=== PATIENT | female | born 1950 | race Caucasian/White ===

== ENCOUNTER 2017-04-27 18:26 | Inpatient (IN) | payer MEDICARE ==
[~2017-04-27] VITALS: Ht 157.5 cm; Wt 68.1 kg
[2017-04-28] VITALS: BP 119/57; PULSE 60; RESP 18; TEMP 97.3; O2SAT 95
--- NOTE | 2017-04-28 00:49 | HHI.HP ---
HPI Service [facility] Hospitalists Primary Care Physician Unknown Admission Diagnosis Diagnoses: Travel History International Travel<30 Days: No Contact w/Intl Traveler <30 Da: No Traveled to Known Affected Are: No History of Present Illness 67-year-old female transferred from [place] for biliary stent placement. The patient has a history of one month of epigastric pain with a recent onset of increased stool, tea-colored urine and jaundice. The patient's bilirubin doubled from 2.9 to 5.5 over 4 days. She endorses nausea but denies emesis. Denies fever/chills. Biliary stent placement was attempted yesterday by Dr. Weems, however he was unable to place the stent. The patient was transferred to [facility] for placement by interventional radiology. She reports that her abdominal pain is much improved since having the procedure today. She currently rates it as a 1.5/10. Review of Systems Denies fever or chills Denies blurry vision, otorrhea, rhinorrhea Denies sore throat and cough No chest pain, palpitations, shortness of breath No abdominal pain Denies constipation/diarrhea/nausea/vomiting Denies muscle pain/weakness No rashes Past Family Social History Past Medical History Bronchiectasis Past Surgical History Cholecystectomy Carpal tunnel release bilaterally Bilateral tubal ligation 2 Reported Medications Reported Meds & Active Scripts Active No Active Prescriptions or Reported Medications Allergies: Coded Allergies: No Known Allergies (Verified Allergy, Unknown, 04/27/17) Family History Mother with diabetes mellitus Social History Rare alcohol. Denies tobacco, illicit drugs Physical Exam Physical Exam GENERAL: female sitting up in bed SKIN: No rashes, ecchymoses or lesions. Cool and dry. Jaundice HEAD: Atraumatic. Normocephalic. No temporal or scalp tenderness. EYES: Pupils equal round and reactive. Extraocular motions intact. Positive scleral icterus. No injection or drainage. ENT: Nose without bleeding, purulent drainage or septal hematoma. Throat without erythema, tonsillar hypertrophy or exudate. Uvula midline. Airway patent. NECK: Trachea midline. No JVD or lymphadenopathy. Supple, nontender, no meningeal signs. CARDIOVASCULAR: Regular rate and rhythm without murmurs, gallops, or rubs. RESPIRATORY: Clear to auscultation. Breath sounds equal bilaterally. No wheezes , rales, or rhonchi. GASTROINTESTINAL: Abdomen soft, non-tender, nondistended. No hepato-splenomegaly , or palpable masses. No guarding. MUSCULOSKELETAL: Extremities without clubbing, cyanosis, or edema. No joint tenderness, effusion, or edema noted. No calf tenderness. NEUROLOGICAL: Awake and alert. Cranial nerves II through XII intact. Motor and sensory grossly within normal limits. Normal speech. Caprini VTE Risk Assessment Caprini VTE Risk Assessment: Mod/High Risk (score >= 2) Caprini Risk Assessment Model Point Value = 1 Point Value = 2 Point Value = 3 Point Value = 5 Age 41-60 Minor surgery BMI > 25 kg/m2 Swollen legs Varicose veins or History of unexplained or recurrent spontaneous Oral contraceptives or hormone replacement Sepsis (< 1 month) Serious lung disease, including pneumonia (< 1 month) Abnormal pulmonary function Acute myocardial infarction Congestive heart failure (< 1 month) History of inflammatory bowel disease Medical patient at bed rest Age 61-74 Arthroscopic surgery Major open surgery (> 45 min) Laparoscopic surgery (> 45 min) Malignancy Confined to bed (> 72 hours) Immobilizing plaster cast Central venous access Age >= 75 History of VTE Family history of VTE Factor V Leiden Prothrombin [id number] Lupus anticoagulant Anticardiolipin antibodies Elevated serum homocysteine Heparin-induced thrombocytopenia Other congenital or acquired thrombophilia Stroke (< 1 month) Elective arthroplasty Hip, pelvis, or leg fracture Acute spinal cord injury (< 1 month) Prophylaxis Regimen Total Risk Factor Score Risk Level Prophylaxis Regimen 0-1 Low Early ambulation 2 Moderate Order ONE of the following: *Sequential Compression Device (SCD) *Heparin 5000 units SQ BID 3-4 Higher Order ONE of the following medications: *Heparin 5000 units SQ TID *Enoxaparin/Lovenox 40 mg SQ daily (WT < 150 kg, CrCl > 30 mL/min) *Enoxaparin/Lovenox 30 mg SQ daily (WT < 150 kg, CrCl > 10-29 mL/min) *Enoxaparin/Lovenox 30 mg SQ BID (WT < 150 kg, CrCl > 30 mL/min) AND/OR *Sequential Compression Device (SCD) 5 or more Highest Order ONE of the following medications: *Heparin 5000 units SQ TID (Preferred with Epidurals) *Enoxaparin/Lovenox 40 mg SQ daily (WT < 150 kg, CrCl > 30 mL/min) *Enoxaparin/Lovenox 30 mg SQ daily (WT < 150 kg, CrCl > 10-29 mL/min) *Enoxaparin/Lovenox 30 mg SQ BID (WT < 150 kg, CrCl > 30 mL/min) AND *Sequential Compression Device (SCD) Assessment and Plan Assessment and Plan Assessment/plan: 1. Jaundice/biliary obstruction Status post failed biliary stent placement on 04/27 Patient transferred to [facility] for intervention by invasive radiology Gastroenterology consulted, appreciate assistance with management Nothing by mouth in anticipation for procedure FEN NPO NS at 84 cc/hr Electrolytes: monitor and replete prn SCDs Anusha Samuel MD Apr 28, 2017 00:49
[2017-04-28 01:00] LABS: AUTOMATED NEUTROPHIL # 7.3 TH/MM3 (1.8-7.7); BASOPHIL % 0.4 % (0.0-2.0); EOSINOPHIL % 0.1 % (0.0-4.0); HEMATOCRIT 36.1 % (35.0-46.0); HEMO FLAGS DIFF FINAL; LYMPH % 9.4 % (9.0-44.0); LYMPHOCYTE # 0.8 TH/MM3 (1.0-4.8); MEAN CELL VOLUME 87.6 FL (80.0-100.0); MEAN CORPUSCULAR HEMOGLOBIN 28.6 PG (27.0-34.0); MEAN CORPUSCULAR HGB CONC 32.6 % (32.0-36.0); MONO % 4.7 % (0.0-8.0); NEUT % 85.4 % (16.0-70.0); PLATELET COUNT 363 TH/MM3 (150-450); RED BLOOD COUNT 4.12 MIL/MM3 (4.00-5.30); RED CELL DISTRIBUTION WIDTH 14.1 % (11.6-17.2); WHITE BLOOD COUNT 8.5 TH/MM3 (4.0-11.0)
[2017-04-28 01:21] LABS: ALT (GPT) 763 U/L (10-53); ANION GAP 6 MEQ/L (5-15); AST (GOT) 342 U/L (15-37); BICARBONATE 27.7 MEQ/L (21.0-32.0); BLOOD UREA NITROGEN 10 MG/DL (7-18); CHLORIDE 104 MEQ/L (98-107); GLOMERULAR FILTRATION RATE 104 ML/MIN (>89); POTASSIUM 4.2 MEQ/L (3.5-5.1); SODIUM (NA) 138 MEQ/L (136-145)
[2017-04-28 01:22] LABS: ALKALINE PHOSPHATASE 948 U/L (45-117); TOTAL BILIRUBIN ADULT 4.1 MG/DL (0.2-1.0)
[2017-04-28] MEDS: SODIUM CHLOR 0.9% 1000 ML INJ 1,000 ML IV SCH ×2 (01:59→12:55)
[2017-04-28 04:00] VITALS: BP 110/56; PULSE 66; RESP 20; TEMP 98.2; O2SAT 95
[2017-04-28 08:00] VITALS: BP 102/55; PULSE 62; RESP 17; TEMP 97.6; O2SAT 97
[2017-04-28] MEDS ORDERED: PNEUMOCOCCAL POLYVALENT INJ 25 MCG/0.5 ML SYR IM ONE (10:00)
--- NOTE | 2017-04-28 11:28 | PD.CONS ---
HPI History of Present Illness This is a 67 year old female but transferred here from [place] on 04/27/17 for biliary stent placement per IR. Patient had ERCP and colonoscopy yesterday with Dr. Weems, but needs further intervention for stenting and biopsies. Patient has a history of epigastric abdominal pain nonradiating 1 month. She describes the pain as a cramp-like sensation, 6 out of 10 in severity. She also notes dark tea-colored urine and light-colored stools. She also notes icteric skin and eyes. She denies any nausea, vomiting, dysphagia, or blood in stool. She also denies no fever, chills, sweats, or leg edema. He does note weight loss approximately 6 pounds in 3 weeks. Patient notes abdominal pain decreased after ERCP to 1 out of 10, but notes pain has increased this a.m. to 6 out of 10. Bilirubin noted initially 2.9, increased to 5.5, today 2.9 over the past 4 days. (Berna Astorga) PFSH Past Medical History Bronchiectasis Past Surgical History Cholecystectomy 5 years ago Carpal tunnel release bilaterally Bilateral tubal ligation 2 Colonoscopy 04/27/17, with ERCP (Berna Astorga) Coded Allergies: No Known Allergies (Verified Allergy, Unknown, 04/27/17) Medications Administered Medications Medications (Trade) Dose Ordered Sig/Rahul Route PRN Reason Start Time Stop Time Status Last Admin Dose Admin Sodium Chloride 1,000 ml @ 84 mls/hr [id number] IV 04/28/17 01:00 04/28/17 01:59 Family History Mother with diabetes mellitus Social History Rare alcohol. Denies tobacco, illicit drugs (Berna Astorga) Review of Systems Constitutional: COMPLAINS OF: Fatigue Gastrointestinal: COMPLAINS OF: Abdominal pain (Berna Astorga) GI Exam Vitals I&O Vital Signs Date Time Temp Pulse Resp B/P (MAP) Pulse Ox O2 Delivery O2 Flow Rate FiO2 04/28/17 08:00 97.6 62 17 102/55 (71) 97 04/28/17 04:00 98.2 66 20 110/56 (74) 95 04/28/17 00:00 97.3 60 18 119/57 (77) 95 Laboratory Test 04/28/17 00:35 White Blood Count 8.5 TH/MM3 Red Blood Count 4.12 MIL/MM3 Hemoglobin 11.8 GM/DL Hematocrit 36.1 % Mean Corpuscular Volume 87.6 FL Mean Corpuscular Hemoglobin 28.6 PG Mean Corpuscular Hemoglobin Concent 32.6 % Red Cell Distribution Width 14.1 % Platelet Count 363 TH/MM3 Mean Platelet Volume 8.5 FL Neutrophils (%) (Auto) 85.4 % Lymphocytes (%) (Auto) 9.4 % Monocytes (%) (Auto) 4.7 % Eosinophils (%) (Auto) 0.1 % Basophils (%) (Auto) 0.4 % Neutrophils # (Auto) 7.3 TH/MM3 Lymphocytes # (Auto) 0.8 TH/MM3 Monocytes # (Auto) 0.4 TH/MM3 Eosinophils # (Auto) 0.0 TH/MM3 Basophils # (Auto) 0.0 TH/MM3 CBC Comment DIFF FINAL Differential Comment Blood Urea Nitrogen 10 MG/DL Creatinine 0.58 MG/DL Random Glucose 125 MG/DL Total Protein 7.4 GM/DL Albumin 2.9 GM/DL Calcium Level 9.3 MG/DL Alkaline Phosphatase 948 U/L Aspartate Amino Transf (AST/SGOT) 342 U/L Alanine Aminotransferase (ALT/SGPT) 763 U/L Total Bilirubin 4.1 MG/DL Sodium Level 138 MEQ/L Potassium Level 4.2 MEQ/L Chloride Level 104 MEQ/L Carbon Dioxide Level 27.7 MEQ/L Anion Gap 6 MEQ/L Estimat Glomerular Filtration Rate 104 ML/MIN Physical Examination HEENT: Pupils round and reactive to light; normocephalic; atraumatic; no jaundice. Throat is clear. NECK: Neck is supple, no JVD, no lymphadenopathy. CHEST: Chest is clear to auscultation and percussion. CARDIAC: Regular rate and rhythm with no murmur gallop or rubs. ABDOMEN: Soft, nondistended, epigastric left lower quadrant pain radiating into back to light palpation; no hepatosplenomegaly; bowel sounds are present in all four quadrants. EXTREMITIES: No clubbing, cyanosis, or edema. SKIN: Normal; no rash; mild jaundice. PHARMACOLOGY ASSOCIATE: No focal deficits; alert and oriented times three. (Berna Astorga) Assessment and Plan Assessment: (1) Common biliary duct obstruction ICD Codes: K83.1 - Obstruction of bile duct (2) Abdominal pain ICD Codes: R10.9 - Unspecified abdominal pain (3) Epigastric pain ICD Codes: R10.13 - Epigastric pain Plan Nothing by mouth for biliary stent placement and possible biopsies per IR was the initial plan, but IR didn't have any imaging here at this facility to review. CT has been ordered for today, clear liquids after procedure. Patient will be nothing by mouth at midnight for procedure tomorrow with anesthesia and INR. Monitor pain symptoms especially related to abdomen and left lower back PPI Recheck labs in the morning Her plan of care will be based on findings Case discussed with , note on his behalf (Berna Astorga) Physician Comments Discussed with patient and daughter, will plan stenting and biopsies today. will follow up with you. (Gabriel Tavarez MD) Berna Astorga Apr 28, 2017 11:28 Gabriel Tavarez MD Apr 28, 2017 14:08
[2017-04-28 12:00] VITALS: BP 112/57; PULSE 60; RESP 17; TEMP 97.9; O2SAT 96
[2017-04-28] MEDS: PANTOPRAZOLE SOD 20 MG DELAYED RELEASE TAB PO SCH (14:21)
--- NOTE | 2017-04-28 15:47 | HHI.PR ---
Subjective Remarks Pt complains of abd pain and distension She was transferred from [facility] in [place] for IR evaluation and PTC Pt has been afebrile Objective Vitals Vital Signs Date Time Temp Pulse Resp B/P (MAP) Pulse Ox O2 Delivery O2 Flow Rate FiO2 04/28/17 12:00 97.9 60 17 112/57 (75) 96 04/28/17 08:00 97.6 62 17 102/55 (71) 97 04/28/17 04:00 98.2 66 20 110/56 (74) 95 04/28/17 00:00 97.3 60 18 119/57 (77) 95 Result Diagram: 04/28/17 0035 04/28/17 0035 Other Results Laboratory Tests Test 04/28/17 00:35 White Blood Count 8.5 TH/MM3 Red Blood Count 4.12 MIL/MM3 Hemoglobin 11.8 GM/DL Hematocrit 36.1 % Mean Corpuscular Volume 87.6 FL Mean Corpuscular Hemoglobin 28.6 PG Mean Corpuscular Hemoglobin Concent 32.6 % Red Cell Distribution Width 14.1 % Platelet Count 363 TH/MM3 Mean Platelet Volume 8.5 FL Neutrophils (%) (Auto) 85.4 % Lymphocytes (%) (Auto) 9.4 % Monocytes (%) (Auto) 4.7 % Eosinophils (%) (Auto) 0.1 % Basophils (%) (Auto) 0.4 % Neutrophils # (Auto) 7.3 TH/MM3 Lymphocytes # (Auto) 0.8 TH/MM3 Monocytes # (Auto) 0.4 TH/MM3 Eosinophils # (Auto) 0.0 TH/MM3 Basophils # (Auto) 0.0 TH/MM3 CBC Comment DIFF FINAL Differential Comment Blood Urea Nitrogen 10 MG/DL Creatinine 0.58 MG/DL Random Glucose 125 MG/DL Total Protein 7.4 GM/DL Albumin 2.9 GM/DL Calcium Level 9.3 MG/DL Alkaline Phosphatase 948 U/L Aspartate Amino Transf (AST/SGOT) 342 U/L Alanine Aminotransferase (ALT/SGPT) 763 U/L Total Bilirubin 4.1 MG/DL Sodium Level 138 MEQ/L Potassium Level 4.2 MEQ/L Chloride Level 104 MEQ/L Carbon Dioxide Level 27.7 MEQ/L Anion Gap 6 MEQ/L Estimat Glomerular Filtration Rate 104 ML/MIN Objective Remarks General: NAD, AAOx3, Jaundice Chest: CTA Cardiac: Regular Abd: +BS, soft, mildly distended, mild mid epigastric tenderness Ext: No edema A/P Problem List: (1) Common biliary duct obstruction ICD Codes: K83.1 - Obstruction of bile duct Status: Acute Plan: - Pt is a 67 y/o female with known pancreatic mass first noted in 07/2015 and elevated LFTs. Pt had previous outpt workup which included a PET/CT in 07/2015 which was negative. - She recently developed over the last one month increasing epigastric pain, increased stool frequency, tea-colored urine and jaundice. - She was admitted to [facility] and labs revealed an increase in her bilirubin to 5.5 with elevated transaminases, AST 405, ALT 732, AlkPhos 971. - She has been afebrile - Pt was seen by Dr. Reilly at [place] and ERCP was attempted on 04/27/17 for biliary stent placement but was unsuccessful. The procedure report noted a prominent ampullae with bulging, pancreatic duct dilated with abrupt cut off in the head of the pancreas, CBD dilated with abrupt cut off in the head of the pancreas consistent with pancreatic head mass - Pt also had a colonoscopy performed on 04/27 as there was reported concern over a questionable colonic mass and the colonoscopy was normal. - The patient was transferred to [facility] for PTC by interventional radiology. - Repeat labs on 04/28 with Tbili 4.1, AST 432, ALT 763, AlkPhos 948. - The interventional radiologist, Dr. Aguirre, reviewed the images from [facility] and they will attempt PTC for drainage tomorrow - Pt will be NPO after MN - We will continue Ancef 1 gram IV BID as recommended by GI in the procedure report from Dr. Reilly. - Repeat LFTs in AM - Supportive care - DVT prophylaxis with SCDs (2) Pancreatic mass ICD Codes: K86.9 - Disease of pancreas, unspecified Status: Chronic Plan: - See above. Assessment and Plan Patient examined. Assessment and plan formulated with Anusha Ruano PA-C. I agree with the above. Anusha Ruano Apr 28, 2017 15:47 Margarito Jackson DO May 04, 2017 01:14
[2017-04-28 16:00] VITALS: BP 116/55; PULSE 64; RESP 17; TEMP 97.7; O2SAT 95
[2017-04-28 17:37] LABS: APTT (PATIENT) 26.7 SEC (24.3-30.1); INTERNATIONAL NORMALIZED RATIO 1.5 RATIO; PROTHROMBIN TIME - PATIENT 15.2 SEC (9.8-11.6)
[2017-04-28 20:00] VITALS: BP 122/57; PULSE 58; RESP 18; TEMP 97.7; O2SAT 94
[2017-04-29] VITALS (9 sets, daily range): BP systolic 105–133; BP diastolic 55–81; PULSE 60–74; RESP 12–18; TEMP 97.4–98.8; O2SAT 93–100
[2017-04-29] MEDS: SODIUM CHLOR 0.9% 1000 ML INJ 1,000 ML IV SCH ×3 (00:50→23:50)
[2017-04-29] MEDS ORDERED: MIDAZOLAM HCL 2 MG/2 ML VIAL ONE ×2 (08:12→10:08)
[2017-04-29] MEDS ORDERED: LORazepam 2 MG/ML VIAL ONE (08:12)
[2017-04-29] MEDS ORDERED: HYDROmorphone HCL PF 2 MG/ML VIAL ONE ×2 (08:12→10:07)
[2017-04-29] MEDS ORDERED: RESP: ALBUTEROL 2.5 MG/3 ML NEB (SCH) ONE (08:25)
[2017-04-29] MEDS: PANTOPRAZOLE SOD 20 MG DELAYED RELEASE TAB PO SCH (08:54)
[2017-04-29] MEDS ORDERED: LEVOFLOXACIN 500 MG PREMIX INJ 100 ML IV ONE (09:05)
[2017-04-29] MEDS ORDERED: MIDAZOLAM HCL 2 MG/2 ML VIAL IV ONE (11:25)
[2017-04-29] MEDS ORDERED: PHENYLEPH/NS 1000 MCG/10 ML SYR IV ONE (12:00)
[2017-04-29] MEDS ORDERED: PROPOFOL 200 MG/20 ML AMP IV ONE (12:00)
--- NOTE | 2017-04-29 12:03 | PD.RAD ---
Post Procedure Progress Note Pre Procedure Diagnosis: (1) Pancreatic mass (2) Common biliary duct obstruction (3) Epigastric pain Post Procedure Diagnosis: (1) Epigastric pain (2) Common biliary duct obstruction (3) Pancreatic mass Procedure Date: Apr 29, 2017 Supervising Radiologist: Alan Aguirre Proceduralist/Assist: David Lindsay, RT(R), Mariela Marion RT(R) Anesthesia: Local, Analgesia, Conscious Sedation Plan of Activity Patient to Unit: ROPU Patient Condition: Good See PACS Report for procedural detail/treatment Drainage Procedure Procedure 1 Imaging Guidance: Fluoroscopy Procedure Type: Biliary Drainage (I/E) Procedure: Placement Kazakh: 8 Drainage: [place] drainage Fluid Description: Bilious, Red Alan Aguirre MD Apr 29, 2017 12:03
--- NOTE | 2017-04-29 13:53 | RADRPT ---
EXAM DATE/TIME: 04/29/2017 07:51 [place] COMPARISON: No previous studies available for comparison. INDICATIONS : Patient presents with biliary obstruction in need of a biliary drain. MEDICAL HISTORY : Bronchiectasis SURGICAL HISTORY : Cholecystectomy Carpal tunnel release bilaterally Bilateral tubal ligation x2 ENCOUNTER: Initial ACUITY: 2 weeks PAIN SCORE: 6/10 LOCATION: Bilateral Abdomen FLUORO TIME: 70.9 minutes IMAGE SERIES: 4 SEDATION TIME: 60 minutes CONTRAST: 120 cc Omnipaque (iohexol) 350 MEDICATION(S): 1.) 7.5 mg midazolam (Versed) IV 2.) 2.5 mg hydromorphone (Dilaudid) IV 3.) 275 mcg fentanyl (Sublimaze) IV DEVICE(S): 1.) 8 [place] biliary drain PROCEDURE : 1. Ultrasound guided puncture of the biliary tree. 2. Percutaneous antegrade cholangiogram. 3. Biliary stent placement. 4. Conscious sedation with continuous EKG and oximetry monitoring. The risks, benefits and alternatives to the procedure were explained and verbal and written consent w as obtained. The site was prepped in sterile fashion. Full sterile technique was used, including ca p, mask, sterile gloves and gown and a large sterile sheet. Hand hygiene and 2% chlorhexidine and/or betadine/alcohol prep was utilized per protocol for cutaneous antisepsis. Sterile gel and sterile p robe cover were utilized for ultrasound guidance. The skin and subcutaneous tissues were infiltrated with local anesthetic solution. With fluoroscopic guidance the biliary tree was punctured with a 22 gauge Chiba needle and the biliar y tree was opacified. The first access was quite central. Therefore, a 3 [place] dilator was advanced over the 018 wire into the biliary tree and used to further opacify the intrahepatic ducts. A second more peripheral access was obtained in the biliary tree and a guidewire was passed into the duodenum. Serial dilatation was performed to accept the prescribed catheter. Injection of positive contrast d emonstrates appropriate position. Conscious sedation was performed with the prescribed dosages and duration as above in the presence of an independent trained radiology nurse to assist in the monitoring of the patient. EKG and oximetry remained stable throughout the procedure. The patient tolerated the procedure well and there were n o complications. The patient was sent to post anesthesia recovery in stable condition. CONCLUSION: Uncomplicated biliary stent placement as above. Alan Aguirre MD on April 29, 2017 at 13:48 Board Certified Radiologist. This report was verified electronically.
--- NOTE | 2017-04-29 14:12 | HHI.PR ---
Subjective Remarks Patient S/P biliary stent and I/E drain placement 04/29 by IR Patient continues to be groggy post-procedure Objective Vitals Vital Signs Date Time Temp Pulse Resp B/P (MAP) Pulse Ox O2 Delivery O2 Flow Rate FiO2 04/29/17 12:46 97.4 60 17 105/56 (72) 94 04/29/17 12:10 62 18 111/74 (86) 97 04/29/17 11:25 64 12 129/81 (97) 96 04/29/17 11:10 97.4 70 12 111/74 (86) 94 04/29/17 07:38 97.9 69 18 123/64 (83) 95 04/29/17 04:00 98.2 74 18 123/57 (79) 93 04/29/17 00:00 98.1 71 18 115/55 (75) 95 04/28/17 20:00 97.7 58 18 122/57 (78) 94 04/28/17 16:00 97.7 64 17 116/55 (75) 95 04/29/17 04/29/17 04/30/17 15:00 23:00 07:00 Intake Total 100 ml Balance 100 ml IV Total 100 ml # Voids 1 # Bowel Movements 1 Result Diagram: 04/28/17 0035 04/28/17 0035 Other Results Laboratory Tests Test 04/28/17 00:35 04/28/17 16:23 White Blood Count 8.5 TH/MM3 Red Blood Count 4.12 MIL/MM3 Hemoglobin 11.8 GM/DL Hematocrit 36.1 % Mean Corpuscular Volume 87.6 FL Mean Corpuscular Hemoglobin 28.6 PG Mean Corpuscular Hemoglobin Concent 32.6 % Red Cell Distribution Width 14.1 % Platelet Count 363 TH/MM3 Mean Platelet Volume 8.5 FL Neutrophils (%) (Auto) 85.4 % Lymphocytes (%) (Auto) 9.4 % Monocytes (%) (Auto) 4.7 % Eosinophils (%) (Auto) 0.1 % Basophils (%) (Auto) 0.4 % Neutrophils # (Auto) 7.3 TH/MM3 Lymphocytes # (Auto) 0.8 TH/MM3 Monocytes # (Auto) 0.4 TH/MM3 Eosinophils # (Auto) 0.0 TH/MM3 Basophils # (Auto) 0.0 TH/MM3 CBC Comment DIFF FINAL Differential Comment Blood Urea Nitrogen 10 MG/DL Creatinine 0.58 MG/DL Random Glucose 125 MG/DL Total Protein 7.4 GM/DL Albumin 2.9 GM/DL Calcium Level 9.3 MG/DL Alkaline Phosphatase 948 U/L Aspartate Amino Transf (AST/SGOT) 342 U/L Alanine Aminotransferase (ALT/SGPT) 763 U/L Total Bilirubin 4.1 MG/DL Sodium Level 138 MEQ/L Potassium Level 4.2 MEQ/L Chloride Level 104 MEQ/L Carbon Dioxide Level 27.7 MEQ/L Anion Gap 6 MEQ/L Estimat Glomerular Filtration Rate 104 ML/MIN Prothrombin Time 15.2 SEC Prothromb Time International Ratio 1.5 RATIO Activated Partial Thromboplast Time 26.7 SEC Imaging Last Impressions Bile Duct Drainage 04/29/17 1126 Signed Impressions: Service Date/Time: Thursday, April 29, 2017 07:51 - CONCLUSION: Uncomplicated biliary stent placement as above. Alan Aguirre MD Objective Remarks General: NAD, AAOx3, Jaundice Chest: CTA Cardiac: Regular Abd: +BS, soft, mildly distended, mild mid epigastric tenderness Ext: No edema A/P Problem List: (1) Common biliary duct obstruction ICD Codes: K83.1 - Obstruction of bile duct Status: Acute Plan: - Pt is a 67 y/o female with known pancreatic mass first noted in 07/2015 and elevated LFTs. Pt had previous outpt workup which included a PET/CT in 07/2015 which was negative. - She recently developed over the last one month increasing epigastric pain, increased stool frequency, tea-colored urine and jaundice. - She was admitted to [facility] and labs revealed an increase in her bilirubin to 5.5 with elevated transaminases, AST 405, ALT 732, AlkPhos 971. - She has been afebrile - Pt was seen by Dr. Reilly at [place] and ERCP was attempted on 04/27/17 for biliary stent placement but was unsuccessful. The procedure report noted a prominent ampullae with bulging, pancreatic duct dilated with abrupt cut off in the head of the pancreas, CBD dilated with abrupt cut off in the head of the pancreas consistent with pancreatic head mass - Pt also had a colonoscopy performed on 04/27 as there was reported concern over a questionable colonic mass and the colonoscopy was normal. - The patient was transferred to [facility] for PTC by interventional radiology. - Repeat labs on 04/28 with Tbili 4.1, AST 432, ALT 763, AlkPhos 948. - The interventional radiologist, Dr. Aguirre, reviewed the images from [facility] - 04/29 patient is S/P biliary stent and I/E placement 04/29 with IR. Case discussed with IR plan to cap drain in 48 hours - We will continue Ancef 1 gram IV BID as recommended by GI in the procedure report from Dr. Reilly. Is patient stable plan to stop abx tomorrow - Plan for EUS with biopsy this afternoon - Repeat LFTs in AM - Supportive care - DVT prophylaxis with SCDs Discharge planing - Patient S/P biliary stent and I/E placement 04/29 with IR. Case discussed with IR plan to cap drain in 48 hours - plan to DC in 2-3 days (2) Pancreatic mass ICD Codes: K86.9 - Disease of pancreas, unspecified Status: Chronic Plan: - See above. Assessment and Plan Patient examined. Assessment and plan formulated with Elida Tanner PA-C. I agree with the above. Elida Tanner Apr 29, 2017 14:12 Margarito Jackson DO May 04, 2017 01:15
[2017-04-29] MEDS: ONDANSETRON HCL 4 MG/2 ML VIAL IV PUSH PRN (15:57)
--- NOTE | 2017-04-29 15:57 | HHI.GIFU ---
Subjective Remarks Pt resting in bed, just back from IR procedure for biliary drain placement, external. In NAD. (Saray Khan) Objective Vitals I&O Vital Signs Date Time Temp Pulse Resp B/P (MAP) Pulse Ox O2 Delivery O2 Flow Rate FiO2 04/29/17 12:46 97.4 60 17 105/56 (72) 94 04/29/17 12:10 62 18 111/74 (86) 97 04/29/17 11:25 64 12 129/81 (97) 96 04/29/17 11:10 97.4 70 12 111/74 (86) 94 04/29/17 07:38 97.9 69 18 123/64 (83) 95 04/29/17 04:00 98.2 74 18 123/57 (79) 93 04/29/17 00:00 98.1 71 18 115/55 (75) 95 04/28/17 20:00 97.7 58 18 122/57 (78) 94 04/28/17 16:00 97.7 64 17 116/55 (75) 95 I/O 04/28/17 04/28/17 04/28/17 04/29/17 04/29/17 04/29/17 07:00 15:00 23:00 07:00 15:00 23:00 Intake Total 100 ml 380 ml 100 ml Output Total 500 ml Balance 100 ml -120 ml 100 ml Intake Oral 380 ml IV Total 100 ml 100 ml Output Urine Total 500 ml # Voids 2 1 # Bowel Movements 0 1 Laboratory Laboratory Tests Test 04/28/17 16:23 Prothrombin Time 15.2 Prothromb Time International Ratio 1.5 Activated Partial Thromboplast Time 26.7 Imaging Last Impressions Bile Duct Drainage 04/29/17 1126 Signed Impressions: Service Date/Time: Saturday, April 29, 2017 07:51 - CONCLUSION: Uncomplicated biliary stent placement as above. Alan Aguirre MD Physical Exam HEENT: normocephalic; atraumatic; + icterus CHEST: CTA CARDIAC: RRR ABDOMEN: Soft, nondistended, nontender; no hepatosplenomegaly; bowel sounds are present in all four quadrants. EXTREMITIES: No clubbing, cyanosis, or edema. SKIN: Normal; no rash; +jaundice. 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 drain to be capped in 48h. going for EUS per Dr Reilly with Dr Warren d/w primary, RN PLAN - await EUS - NPO until after procedure - ok to d/c when drain capped, 48h - monitor labs - further recs to follow Case discussed with , note on his behalf (Saray Khan) Physician Comments Plan as above, further recommendations to follow. (Gabriel Tavarez MD) Saray Khan Apr 29, 2017 15:57 Gabriel Tavarez MD Apr 30, 2017 06:23
[2017-04-29] MEDS ORDERED: DO NOT ADM ANY ANTICOAGULANT DRUGS PRN (18:38)
[2017-04-29] MEDS ORDERED: *RESP: ALBUTEROL 2.5 MG/3 ML NEB (PRN) PERIprocedural Use ONLY NEB ONE (18:55)
--- NOTE | 2017-04-29 19:07 | HHI.GIFU ---
GI Follow-up Note Consult Follow-up Asked to see patient for Endoscopic ultrasound. ASSESSMENT/PLAN: 1. Pancreatic mass PLAN: 1. EGD/EUS with FNA today. It was a pleasure seeing Aster Benítez. Thank you for this consult. Entered by: Sheyla Tyson MD Apr 29, 2017 19:07
--- NOTE | 2017-04-29 19:09 | HHI.GIFU ---
GI Follow-up Note Consult Follow-up POST PROCEDURE NOTE: EUS WITH FNA FULL DICTATED. ASSESSMENT/PLAN: 1. 3 cm x 2.6 cm mass in the Head of the panc. s/p FNA 2. 1.6 cm mass in the tail of panc. s/p FNA 3. dilated cbd with int/ext drain PLAN: 1. Advance diet as tolerated 2. Await path results 3. Monitor lfts. It was a pleasure seeing Aster Benítez. Thank you for this consult. Entered by: Sheyla Tyson MD Apr 29, 2017 19:09
[2017-04-29] MEDS: ACETAMINOPHEN 325 MG TAB PO PRN (22:34)
[2017-04-30] VITALS (7 sets, daily range): BP systolic 113–131; BP diastolic 52–64; PULSE 69–86; RESP 18; TEMP 97.7–99.6; O2SAT 93–95
[2017-04-30 08:09] LABS: AUTOMATED NEUTROPHIL # 7.3 TH/MM3 (1.8-7.7); BASOPHIL # 0.1 TH/MM3 (0-0.2); BASOPHIL % 0.7 % (0.0-2.0); EOSINOPHIL # 0.1 TH/MM3 (0-0.4); EOSINOPHIL % 1.1 % (0.0-4.0); HEMATOCRIT 32.8 % (35.0-46.0); HEMO FLAGS DIFF FINAL; LYMPHOCYTE # 1.1 TH/MM3 (1.0-4.8); MEAN CELL VOLUME 87.1 FL (80.0-100.0); MEAN CORPUSCULAR HEMOGLOBIN 29.7 PG (27.0-34.0); MEAN CORPUSCULAR HGB CONC 34.1 % (32.0-36.0); MONO % 7.3 % (0.0-8.0); NEUT % 78.9 % (16.0-70.0); PLATELET COUNT 317 TH/MM3 (150-450); RED BLOOD COUNT 3.76 MIL/MM3 (4.00-5.30); WHITE BLOOD COUNT 9.3 TH/MM3 (4.0-11.0)
[2017-04-30 08:54] LABS: ALKALINE PHOSPHATASE 747 U/L (45-117); ALT (GPT) 714 U/L (10-53); ANION GAP 10 MEQ/L (5-15); AST (GOT) 350 U/L (15-37); BICARBONATE 29.3 MEQ/L (21.0-32.0); BLOOD UREA NITROGEN 7 MG/DL (7-18); CHLORIDE 100 MEQ/L (98-107); GLOMERULAR FILTRATION RATE 144 ML/MIN (>89); POTASSIUM 3.3 MEQ/L (3.5-5.1); SODIUM (NA) 139 MEQ/L (136-145); TOTAL BILIRUBIN ADULT 4.7 MG/DL (0.2-1.0)
[2017-04-30] MEDS: PANTOPRAZOLE SOD 20 MG DELAYED RELEASE TAB PO SCH (09:23)
[2017-04-30] MEDS ORDERED: POTASSIUM CHLORIDE 20 MEQ CONTROLLED RELEASE TAB PO ONE (10:00)
--- NOTE | 2017-04-30 11:25 | HHI.PR ---
Subjective Remarks Patient awake and alert c/o choking sensation in throat worse when she bends down. This sensation started after the EUS procedure. Patient is S/P EUS with FNA bx 04/30 Objective Vitals Vital Signs Date Time Temp Pulse Resp B/P (MAP) Pulse Ox O2 Delivery O2 Flow Rate FiO2 04/30/17 09:18 94 21 04/30/17 08:00 98.2 75 18 131/61 (84) 94 04/30/17 00:39 97.7 69 18 122/56 (78) 93 04/29/17 21:31 98.8 61 16 133/59 (83) 99 04/29/17 19:35 98.3 70 20 106/54 (71) 98 04/29/17 19:00 62 17 115/52 (73) 100 04/29/17 18:45 58 18 113/57 (75) 100 04/29/17 18:38 98.4 74 20 111/63 (79) 100 04/29/17 16:13 98.2 68 18 114/55 (74) 100 04/29/17 12:46 97.4 60 17 105/56 (72) 94 04/29/17 12:10 62 18 111/74 (86) 97 04/29/17 11:25 64 12 129/81 (97) 96 04/30/17 04/30/17 05/01/17 15:00 23:00 07:00 Output Total 300 ml Balance -300 ml Gastric Drainage Total 300 ml Result Diagram: 04/30/17 0643 04/30/17 0643 Other Results Laboratory Tests Test 04/28/17 00:35 04/28/17 16:23 04/30/17 06:43 White Blood Count 8.5 TH/MM3 9.3 TH/MM3 Red Blood Count 4.12 MIL/MM3 3.76 MIL/MM3 Hemoglobin 11.8 GM/DL 11.2 GM/DL Hematocrit 36.1 % 32.8 % Mean Corpuscular Volume 87.6 FL 87.1 FL Mean Corpuscular Hemoglobin 28.6 PG 29.7 PG Mean Corpuscular Hemoglobin Concent 32.6 % 34.1 % Red Cell Distribution Width 14.1 % 14.0 % Platelet Count 363 TH/MM3 317 TH/MM3 Mean Platelet Volume 8.5 FL 9.0 FL Neutrophils (%) (Auto) 85.4 % 78.9 % Lymphocytes (%) (Auto) 9.4 % 12.0 % Monocytes (%) (Auto) 4.7 % 7.3 % Eosinophils (%) (Auto) 0.1 % 1.1 % Basophils (%) (Auto) 0.4 % 0.7 % Neutrophils # (Auto) 7.3 TH/MM3 7.3 TH/MM3 Lymphocytes # (Auto) 0.8 TH/MM3 1.1 TH/MM3 Monocytes # (Auto) 0.4 TH/MM3 0.7 TH/MM3 Eosinophils # (Auto) 0.0 TH/MM3 0.1 TH/MM3 Basophils # (Auto) 0.0 TH/MM3 0.1 TH/MM3 CBC Comment DIFF FINAL DIFF FINAL Differential Comment Blood Urea Nitrogen 10 MG/DL 7 MG/DL Creatinine 0.58 MG/DL 0.44 MG/DL Random Glucose 125 MG/DL 66 MG/DL Total Protein 7.4 GM/DL 6.9 GM/DL Albumin 2.9 GM/DL 2.7 GM/DL Calcium Level 9.3 MG/DL 8.6 MG/DL Alkaline Phosphatase 948 U/L 747 U/L Aspartate Amino Transf (AST/SGOT) 342 U/L 350 U/L Alanine Aminotransferase (ALT/SGPT) 763 U/L 714 U/L Total Bilirubin 4.1 MG/DL 4.7 MG/DL Sodium Level 138 MEQ/L 139 MEQ/L Potassium Level 4.2 MEQ/L 3.3 MEQ/L Chloride Level 104 MEQ/L 100 MEQ/L Carbon Dioxide Level 27.7 MEQ/L 29.3 MEQ/L Anion Gap 6 MEQ/L 10 MEQ/L Estimat Glomerular Filtration Rate 104 ML/MIN 144 ML/MIN Prothrombin Time 15.2 SEC Prothromb Time International Ratio 1.5 RATIO Activated Partial Thromboplast Time 26.7 SEC Imaging Last Impressions Bile Duct Drainage 04/29/17 1126 Signed Impressions: Service Date/Time: Saturday, April 29, 2017 07:51 - CONCLUSION: Uncomplicated biliary stent placement as above. Alan Aguirre MD Objective Remarks General: NAD, AAOx3, Jaundice Chest: CTA Cardiac: Regular Abd: +BS, soft, mildly distended, mild mid epigastric tenderness Ext: No edema A/P Problem List: (1) Common biliary duct obstruction ICD Codes: K83.1 - Obstruction of bile duct Status: Acute Plan: - Pt is a 67 y/o female with known pancreatic mass first noted in 07/2015 and elevated LFTs. Pt had previous outpt workup which included a PET/CT in 07/2015 which was negative. - She recently developed over the last one month increasing epigastric pain, increased stool frequency, tea-colored urine and jaundice. - She was admitted to [facility] and labs revealed an increase in her bilirubin to 5.5 with elevated transaminases, AST 405, ALT 732, AlkPhos 971. - She has been afebrile - Pt was seen by Dr. Reilly at [facility] and ERCP was attempted on 04/27/17 for biliary stent placement but was unsuccessful. The procedure report noted a prominent ampullae with bulging, pancreatic duct dilated with abrupt cut off in the head of the pancreas, CBD dilated with abrupt cut off in the head of the pancreas consistent with pancreatic head mass - Pt also had a colonoscopy performed on 04/27 as there was reported concern over a questionable colonic mass and the colonoscopy was normal. - The patient was transferred to [facility] for PTC by interventional radiology. - Repeat labs on 04/28 with Tbili 4.1, AST 432, ALT 763, AlkPhos 948. - The interventional radiologist, Dr. Aguirre, reviewed the images from [facility] - 04/29 patient is S/P biliary stent and I/E placement 04/29 with IR. Case discussed with IR plan to cap drain in 48 hours - We will continue Ancef 1 gram IV BID as recommended by GI in the procedure report from Dr. Reilly. DC Ancef - 04/30 EUS with FNA biopsy with Dr. Warren, pathology pending - Repeat LFTs remain elevated bilirubin 4.7, AST 350, ALT 714 - Supportive care - DVT prophylaxis with SCDs Discharge planing - Patient S/P biliary stent and I/E placement 04/29 with IR. Case discussed with IR plan to cap drain in 48 hours after procedure - plan to DC in 1-2 days (2) Pancreatic mass ICD Codes: K86.9 - Disease of pancreas, unspecified Status: Chronic Plan: - See above. (3) Choking sensation ICD Codes: R09.89 - Other specified symptoms and signs involving the circulatory and respiratory systems Plan: c/o choking sensation in throat worse when she bends down. This sensation started after the EUS procedure. Patient evaluated by Dr. Jackson and Dr. Tavarez. spot of irritation/ ulceration on Uvula will start Chloraseptic spray Assessment and Plan Patient examined. Assessment and plan formulated with Elida Tanner PA-C. I agree with the above. Elida Tanner Apr 30, 2017 11:25 Margarito Jackson DO May 04, 2017 01:15
--- NOTE | 2017-04-30 14:03 | HHI.GIFU ---
Subjective Remarks Pt resting in bed, eating ice cream. C/o soreness upper quadrants and sides. Biliary drain to gravity with dark green bilious output. (Saray Khan) Objective Vitals I&O Vital Signs Date Time Temp Pulse Resp B/P (MAP) Pulse Ox O2 Delivery O2 Flow Rate FiO2 04/30/17 12:21 98.5 69 18 119/64 (82) 93 04/30/17 09:18 94 21 04/30/17 08:00 98.2 75 18 131/61 (84) 94 04/30/17 00:39 97.7 69 18 122/56 (78) 93 04/29/17 21:31 98.8 61 16 133/59 (83) 99 04/29/17 19:35 98.3 70 20 106/54 (71) 98 04/29/17 19:00 62 17 115/52 (73) 100 04/29/17 18:45 58 18 113/57 (75) 100 04/29/17 18:38 98.4 74 20 111/63 (79) 100 04/29/17 16:13 98.2 68 18 114/55 (74) 100 I/O 04/29/17 04/29/17 04/29/17 04/30/17 04/30/17 04/30/17 07:00 15:00 23:00 07:00 15:00 23:00 Intake Total 380 ml 100 ml 900 ml Output Total 500 ml 400 ml 300 ml Balance -120 ml 100 ml 900 ml -400 ml -300 ml Intake Oral 380 ml IV Total 100 ml Other 900 ml Output Urine Total 500 ml Gastric Drainage Total 300 ml Drainage Total 400 ml # Voids 1 2 # Bowel Movements 0 1 1 Laboratory Laboratory Tests Test 04/30/17 06:43 White Blood Count 9.3 Red Blood Count 3.76 Hemoglobin 11.2 Hematocrit 32.8 Mean Corpuscular Volume 87.1 Mean Corpuscular Hemoglobin 29.7 Mean Corpuscular Hemoglobin Concent 34.1 Red Cell Distribution Width 14.0 Platelet Count 317 Mean Platelet Volume 9.0 Neutrophils (%) (Auto) 78.9 Lymphocytes (%) (Auto) 12.0 Monocytes (%) (Auto) 7.3 Eosinophils (%) (Auto) 1.1 Basophils (%) (Auto) 0.7 Neutrophils # (Auto) 7.3 Lymphocytes # (Auto) 1.1 Monocytes # (Auto) 0.7 Eosinophils # (Auto) 0.1 Basophils # (Auto) 0.1 CBC Comment DIFF FINAL Differential Comment Blood Urea Nitrogen 7 Creatinine 0.44 Random Glucose 66 Total Protein 6.9 Albumin 2.7 Calcium Level 8.6 Alkaline Phosphatase 747 Aspartate Amino Transf (AST/SGOT) 350 Alanine Aminotransferase (ALT/SGPT) 714 Total Bilirubin 4.7 Sodium Level 139 Potassium Level 3.3 Chloride Level 100 Carbon Dioxide Level 29.3 Anion Gap 10 Estimat Glomerular Filtration Rate 144 Imaging Last Impressions Bile Duct Drainage 04/29/17 1126 Signed Impressions: Service Date/Time: Saturday, April 29, 2017 07:51 - CONCLUSION: Uncomplicated biliary stent placement as above. Alan Aguirre MD Physical Exam HEENT: normocephalic; atraumatic; + icterus CHEST: CTA CARDIAC: RRR ABDOMEN: Soft, nondistended, upper quadrant TTP; no hepatosplenomegaly; bowel sounds are present in all four quadrants. biliary drain with bilious green drainage EXTREMITIES: No clubbing, cyanosis, or edema. SKIN: Normal; no rash; +jaundice. PRODUCTION HELPER: AOX3 (Saray Khan) Assessment and Plan Assessment: (1) Common biliary duct obstruction ICD Codes: K83.1 - Obstruction of bile duct Status: Acute (2) Abdominal pain ICD Codes: R10.9 - Unspecified abdominal pain (3) Epigastric pain ICD Codes: R10.13 - Epigastric pain Plan 04/30/17 s/p ext biliary drain placement, EUS w/ FNA by Dr Warren found pancreas head mass. PLAN - FAUZIA - await FNA path - ok to d/c when drain capped, 48h - monitor labs Case discussed with , note on his behalf (Saray Khan) Physician Comments Doing well after EUS, plan as above. (Gabriel Tavarez MD) Saray Khan Apr 30, 2017 14:03 Gabriel Tavarez MD Apr 30, 2017 15:01
[2017-04-30] MEDS: PHENOL 1.4% SOLN 180 ML BTL OROPHARYNG PRN ×2 (17:22→22:16)
[2017-04-30] MEDS ORDERED: fentaNYL 25 MCG/HR PATCH T-DERMAL SCH (19:00)
[2017-04-30] MEDS: ACETAMINOPHEN 325 MG TAB PO PRN (20:53)
[2017-05-01 00:16] VITALS: BP 95/55; PULSE 68; RESP 16; TEMP 98.3; O2SAT 95
[2017-05-01 04:33] VITALS: BP 104/59; PULSE 68; RESP 14; TEMP 99.1; O2SAT 95
[2017-05-01] MEDS: ACETAMINOPHEN 325 MG TAB PO PRN ×2 (04:37→19:25)
[2017-05-01] MEDS: PHENOL 1.4% SOLN 180 ML BTL OROPHARYNG PRN ×3 (04:37→19:36)
[2017-05-01] MEDS: SODIUM CHLOR 0.9% 1000 ML INJ 1,000 ML IV SCH (06:01)
[2017-05-01 08:27] VITALS: BP 106/53; PULSE 59; RESP 20; TEMP 97.2; O2SAT 98
[2017-05-01] MEDS: PANTOPRAZOLE SOD 20 MG DELAYED RELEASE TAB PO SCH (08:46)
--- NOTE | 2017-05-01 11:33 | HHI.PR ---
Subjective Remarks Patient more comfortable today Offers no specific complaints Objective Vitals Vital Signs Date Time Temp Pulse Resp B/P (MAP) Pulse Ox O2 Delivery O2 Flow Rate FiO2 05/01/17 08:27 97.2 59 20 106/53 (70) 98 05/01/17 04:33 99.1 68 14 104/59 (74) 95 05/01/17 00:16 98.3 68 16 95/55 (68) 95 04/30/17 23:42 94 04/30/17 21:40 99.6 86 18 113/52 (72) 94 04/30/17 16:18 98.5 78 18 117/63 (81) 95 04/30/17 12:21 98.5 69 18 119/64 (82) 93 05/01/17 05/01/17 05/02/17 15:00 23:00 07:00 Output Total 155 ml Balance -155 ml Drainage Total 155 ml Result Diagram: 04/30/17 0643 04/30/17 0643 Other Results Laboratory Tests Test 04/28/17 16:23 04/30/17 06:43 Prothrombin Time 15.2 SEC Prothromb Time International Ratio 1.5 RATIO Activated Partial Thromboplast Time 26.7 SEC White Blood Count 9.3 TH/MM3 Red Blood Count 3.76 MIL/MM3 Hemoglobin 11.2 GM/DL Hematocrit 32.8 % Mean Corpuscular Volume 87.1 FL Mean Corpuscular Hemoglobin 29.7 PG Mean Corpuscular Hemoglobin Concent 34.1 % Red Cell Distribution Width 14.0 % Platelet Count 317 TH/MM3 Mean Platelet Volume 9.0 FL Neutrophils (%) (Auto) 78.9 % Lymphocytes (%) (Auto) 12.0 % Monocytes (%) (Auto) 7.3 % Eosinophils (%) (Auto) 1.1 % Basophils (%) (Auto) 0.7 % Neutrophils # (Auto) 7.3 TH/MM3 Lymphocytes # (Auto) 1.1 TH/MM3 Monocytes # (Auto) 0.7 TH/MM3 Eosinophils # (Auto) 0.1 TH/MM3 Basophils # (Auto) 0.1 TH/MM3 CBC Comment DIFF FINAL Differential Comment Blood Urea Nitrogen 7 MG/DL Creatinine 0.44 MG/DL Random Glucose 66 MG/DL Total Protein 6.9 GM/DL Albumin 2.7 GM/DL Calcium Level 8.6 MG/DL Alkaline Phosphatase 747 U/L Aspartate Amino Transf (AST/SGOT) 350 U/L Alanine Aminotransferase (ALT/SGPT) 714 U/L Total Bilirubin 4.7 MG/DL Sodium Level 139 MEQ/L Potassium Level 3.3 MEQ/L Chloride Level 100 MEQ/L Carbon Dioxide Level 29.3 MEQ/L Anion Gap 10 MEQ/L Estimat Glomerular Filtration Rate 144 ML/MIN Imaging Last Impressions Bile Duct Drainage 04/29/17 1126 Signed Impressions: Service Date/Time: Saturday, April 29, 2017 07:51 - CONCLUSION: Uncomplicated biliary stent placement as above. Alan Aguirre MD Objective Remarks General: NAD, AAOx3, Jaundice Chest: CTA Cardiac: Regular Abd: +BS, soft, mildly distended, mild mid epigastric tenderness. percutaneous drain in place draining green liquid Ext: No edema Procedures Biliary stent placed by IR 04/29 A/P Problem List: (1) Common biliary duct obstruction ICD Codes: K83.1 - Obstruction of bile duct Status: Acute Plan: - Pt is a 67 y/o female with known pancreatic mass first noted in 07/2015 and elevated LFTs. Pt had previous outpt workup which included a PET/CT in 07/2015 which was negative. - She recently developed over the last one month increasing epigastric pain, increased stool frequency, tea-colored urine and jaundice. - She was admitted to [facility] and labs revealed an increase in her bilirubin to 5.5 with elevated transaminases, AST 405, ALT 732, AlkPhos 971. - She has been afebrile - Pt was seen by Dr. Reilly at [facility] and ERCP was attempted on 04/27/17 for biliary stent placement but was unsuccessful. The procedure report noted a prominent ampullae with bulging, pancreatic duct dilated with abrupt cut off in the head of the pancreas, CBD dilated with abrupt cut off in the head of the pancreas consistent with pancreatic head mass - Pt also had a colonoscopy performed on 04/27 as there was reported concern over a questionable colonic mass and the colonoscopy was normal. - The patient was transferred to [facility] for PTC by interventional radiology. - Repeat labs on 04/28 with Tbili 4.1, AST 432, ALT 763, AlkPhos 948. - The interventional radiologist, Dr. Aguirre, reviewed the images from [facility] - 04/29 patient is S/P biliary stent and I/E placement 04/29 with IR. Case discussed with IR plan to cap drain in 48 hours - We will continue Ancef 1 gram IV BID as recommended by GI in the procedure report from Dr. Reilly. DC Ancef - 04/30 EUS with FNA with Dr. Warren, pathology pending - Repeat LFTs remain elevated bilirubin 4.7, AST 350, ALT 714 - repeat labs pending for 05/01 - pathology results pending if nondiagnostic will need to obtain bx, patient NPO in preparation for bx Discussed with pathology (05/01) FNA revealed fibrosis but not enough tissue to r/o malignancy. - possible DC later today awaiting labs - Supportive care - DVT prophylaxis with SCDs Discharge planning - FNA nondiagnostic patient will need further Bx to be done today by IR - possible DC tomorrow (2) Pancreatic mass ICD Codes: K86.9 - Disease of pancreas, unspecified Status: Chronic Plan: - See above. (3) Choking sensation ICD Codes: R09.89 - Other specified symptoms and signs involving the circulatory and respiratory systems Plan: c/o choking sensation in throat worse when she bends down. This sensation started after the EUS procedure. Patient evaluated by Dr. Jackson and Dr. Tavarez. spot of irritation/ ulceration on Uvula improved with Chloraseptic spray Assessment and Plan Patient examined. Assessment and plan formulated with Elida Tanner PA-C. I agree with the above. Elida Tanner May 01, 2017 11:33 Margarito Jackson DO May 04, 2017 01:16
[2017-05-01 12:00] VITALS: BP 116/59; PULSE 71; RESP 20; TEMP 98.7; O2SAT 96
--- NOTE | 2017-05-01 13:29 | HHI.GIFU ---
Subjective Remarks Preparing, resting on stretcher, to go down to IR for procedure Awake, states still having generalized abdominal pain Daughter with her, Facial color and sclera less icteric Possible DC planning for tomorrow if stable (Berna Astorga) Objective Vitals I&O Vital Signs Date Time Temp Pulse Resp B/P (MAP) Pulse Ox O2 Delivery O2 Flow Rate FiO2 05/01/17 12:00 98.7 71 20 116/59 (78) 96 05/01/17 08:27 97.2 59 20 106/53 (70) 98 05/01/17 04:33 99.1 68 14 104/59 (74) 95 05/01/17 00:16 98.3 68 16 95/55 (68) 95 04/30/17 23:42 94 04/30/17 21:40 99.6 86 18 113/52 (72) 94 04/30/17 16:18 98.5 78 18 117/63 (81) 95 I/O 04/30/17 04/30/17 04/30/17 05/01/17 05/01/17 05/01/17 07:00 15:00 23:00 07:00 15:00 23:00 Intake Total 480 ml 942.3 ml Output Total 400 ml 300 ml 200 ml 155 ml Balance -400 ml 180 ml 942.3 ml -200 ml -155 ml Intake Oral 480 ml IV Total 942.3 ml Gastric Drainage Total 300 ml Drainage Total 400 ml 200 ml 155 ml # Voids 2 4 2 1 # Bowel Movements 1 1 0 Imaging Last Impressions Bile Duct Drainage 04/29/17 1126 Signed Impressions: Service Date/Time: Saturday, April 29, 2017 07:51 - CONCLUSION: Uncomplicated biliary stent placement as above. Alan Aguirre MD Physical Exam HEENT: normocephalic; atraumatic; + icterus CHEST: CTA CARDIAC: RRR ABDOMEN: Soft, nondistended, mild generalized tenderness; no hepatosplenomegaly ; bowel sounds are present in all four quadrants. biliary drain with bilious green drainage EXTREMITIES: No clubbing, cyanosis, or edema. SKIN: Normal; no rash; +jaundice, improving X RAY EXAMINER OF AIRCRAFT: AOX3 (Berna Astorga) Assessment and Plan Assessment: (1) Common biliary duct obstruction ICD Codes: K83.1 - Obstruction of bile duct Status: Acute (2) Abdominal pain ICD Codes: R10.9 - Unspecified abdominal pain (3) Epigastric pain ICD Codes: R10.13 - Epigastric pain Plan 04/30/17 s/p ext biliary drain placement, EUS w/ FNA by Dr Warren found pancreas head mass. LFTs 350/714 Bilrubin mild increase 4.7 Decreased Alk. phos 747 PLAN - FAUZIA - FNA path, chronic pancreatitis, 2nd one neoplastic lesion cannot be excluded 05-01, IR for CBD stent placement and biopsy. - ok to d/c when drain capped, 48h - monitor labs Case discussed with , note on his behalf (Berna Astorga) Physician Comments Seen and examined, plan as above. (Gabriel Tavarez MD) Berna Astorga May 01, 2017 13:29 Gabriel Tavarez MD May 01, 2017 15:23
[2017-05-01] MEDS ORDERED: MIDAZOLAM HCL 2 MG/2 ML VIAL ONE (14:10)
[2017-05-01 14:37] LABS: BICARBONATE 29.1 MEQ/L (21.0-32.0); INDIRECT BILIRUBIN 1.1 MG/DL (0.0-0.8); POTASSIUM 3.2 MEQ/L (3.5-5.1)
[2017-05-01] MEDS ORDERED: LEVOFLOXACIN 500 MG PREMIX INJ 100 ML IV ONE (14:44)
[2017-05-01] MEDS ORDERED: MIDAZOLAM HCL 2 MG/2 ML VIAL IV ONE (14:45)
[2017-05-01] MEDS ORDERED: IOHEXOL 350 MG/ML 50 ML BTL (for RAD DIAG) OTHER ONE (15:55)
--- NOTE | 2017-05-01 16:09 | PD.RAD ---
Post Procedure Progress Note Pre Procedure Diagnosis: (1) Pancreatic mass (2) Common biliary duct obstruction Post Procedure Diagnosis: (1) Pancreatic mass (2) Common biliary duct obstruction Procedure Date: May 01, 2017 Supervising Radiologist: Alan Aguirre Proceduralist/Assist: Stephanie Squires RT(R), RT Jim(R)() Anesthesia: Local, Analgesia, Conscious Sedation Plan of Activity Patient to Unit: ROPU Patient Condition: Good See PACS Report for procedural detail/treatment Drainage Procedure Procedure 1 Imaging Guidance: Fluoroscopy Procedure Type: Biliary Drainage Procedure: Exchange (I/E for 10 fr PTHD) Irish: 10 Drainage: [place] drainage Fluid Description: Yellow Procedure 2 Imaging Guidance: Fluoroscopy Procedure Type: Biliary Drainage Procedure: Placement (Internal biliary stent) Irish: 9 Length (cm): 12 Alan Aguirre MD May 01, 2017 16:09
--- NOTE | 2017-05-01 16:41 | RADRPT ---
EXAM DATE/TIME: 05/01/2017 15:30 [facility] COMPARISON: BILIARY DRAINAGE W STENT PLACE, April 29, 2017, 7:51. INDICATIONS : Patient with history of a pancreatic mass with biliary obstruction in need of internalized stent jordan rod. MEDICAL HISTORY : Bronchiectasis SURGICAL HISTORY : Cholecystectomy Carpal tunnel release bilaterally Bilateral tubal ligation x2 ENCOUNTER: Initial ACUITY: 4 - 6 days PAIN SCORE: 6/10 Abdomen. FLUORO TIME: 11.7 minutes IMAGE SERIES: 10 SEDATION TIME: 45 minutes CONTRAST: 40 cc Omnipaque (iohexol) 350 MEDICATION(S): 1.) 6 mg midazolam (Versed) IV 2.) 300 mcg fentanyl (Sublimaze) IV DEVICE(S): 1.) 8 [place] Internalized biliary stent 2.) 10 [place] Locking Cory PROCEDURE : 1. fluoroscopic guided biopsy of the common bile duct. 2. Percutaneous antegrade cholangiogram. 3. Biliary stent placement. 4. Conscious sedation with continuous EKG and oximetry monitoring. 5. Exchange of internal/external drain for a PTHD The risks, benefits and alternatives to the procedure were explained and verbal and written consent w as obtained. The site was prepped in sterile fashion. Full sterile technique was used, including ca p, mask, sterile gloves and gown and a large sterile sheet. Hand hygiene and 2% chlorhexidine and/or betadine/alcohol prep was utilized per protocol for cutaneous antisepsis. Sterile gel and sterile p robe cover were utilized for ultrasound guidance. The skin and subcutaneous tissues were infiltrated with local anesthetic solution. Contrast was injected in the existing internal/external drain showing appropriate position in the joleen iary tree and duodenum. A straight Glidewire was advanced through the internal/external drain into th e small bowel. The catheter was removed and replaced with a 6 [place], 25 cm side-port sheath. A Beren hennessy catheter was advanced over the Glidewire into the small bowel. Wire was exchanged for an 018 wi re to secure access to the bowel. The forceps biopsy device was then advanced through the sheath and deployed in the abnormal portion of the CBD. A series of 4 biopsies were obtained and placed in forma juliana. To facilitate placement of an internal Silastic stent, the 6 [place] sheath was exchanged for a 9 Fren ch side-port sheath. An 8.5 [place], 12 cm stent was then advanced through the sheath and deployed acr oss the abnormal portion of the CBD and into the small bowel. The wire was removed from the sheath an d advanced back into the CBD to facilitate placement of a 10 [place] loop catheter. Catheter was secured to the skin surface with 2-0 silk suture. Conscious sedation was performed with the prescribed dosages and duration as above in the presence of an independent trained radiology nurse to assist in the monitoring of the patient. EKG and oximetry remained stable throughout the procedure. The patient tolerated the procedure well and there were n o complications. The patient was sent to post anesthesia recovery in stable condition. CONCLUSION: 1. Uncomplicated biliary stent placement as above. 2. Exchange of internal/external drain for a PTHD. This will be left to external drainage for the nex t 24-48 hours. Daughter and patient were instructed to cap the external drain at that time. If sympto ms return, drain can be connected back to gravity drainage. 3. Forceps biopsy of the abnormal portion of the CBD x4. Alan Aguirre MD on May 01, 2017 at 16:28 Board Certified Radiologist. This report was verified electronically.
[2017-05-01] MEDS ORDERED: MORPHINE SULFATE 2 MG/ML INJ IV PUSH ONE (17:30)
[2017-05-01] MEDS ORDERED: MORPHINE SULFATE 2 MG/ML INJ IV PUSH PRN (18:00)
[2017-05-01 19:23] VITALS: TEMP 99.5
[2017-05-01] MEDS: ONDANSETRON HCL 4 MG/2 ML VIAL IV PUSH PRN (19:31)
[2017-05-01 20:00] VITALS: BP 138/63; PULSE 83; RESP 18; TEMP 99.6; O2SAT 92
[2017-05-01] MEDS ORDERED: POTASSIUM CHLORIDE 10 MEQ CONTROLLED RELEASE TAB PO ONE (20:00)
[2017-05-02] VITALS: BP 105/58; PULSE 84; RESP 18; TEMP 98.7; O2SAT 94
[2017-05-02 04:00] VITALS: BP 138/63; PULSE 83; RESP 18; TEMP 99.6; O2SAT 92
[2017-05-02] MEDS: PHENOL 1.4% SOLN 180 ML BTL OROPHARYNG PRN ×2 (04:16→09:44)
[2017-05-02 04:56] LABS: ANION GAP 9 MEQ/L (5-15); AST (GOT) 92 U/L (15-37); BICARBONATE 29.5 MEQ/L (21.0-32.0); BLOOD UREA NITROGEN 2 MG/DL (7-18); CHLORIDE 99 MEQ/L (98-107); GLOMERULAR FILTRATION RATE 151 ML/MIN (>89); POTASSIUM 3.7 MEQ/L (3.5-5.1); SODIUM (NA) 137 MEQ/L (136-145)
[2017-05-02 05:02] LABS: ALKALINE PHOSPHATASE 573 U/L (45-117); ALT (GPT) 375 U/L (10-53); TOTAL BILIRUBIN ADULT 4.5 MG/DL (0.2-1.0)
[2017-05-02] MEDS: ONDANSETRON HCL 4 MG/2 ML VIAL IV PUSH PRN (08:19)
[2017-05-02] MEDS: PANTOPRAZOLE SOD 20 MG DELAYED RELEASE TAB PO SCH (08:20)
[2017-05-02 08:53] VITALS: BP 113/59; PULSE 77; RESP 18; TEMP 98.5; O2SAT 93
[2017-05-02] MEDS ORDERED: RESP: ALBUTEROL 2.5 MG/IPRATROPIUM 0.5 MG NEB (SCH) NEB STA (10:43)
--- NOTE | 2017-05-02 10:43 | HHI.DS ---
Discharge Summary Admission Date Apr 28, 2017 at 12:03 Discharge Date: May 02, 2017 Admitting Diagnosis Common bile duct obstruction (1) Common biliary duct obstruction Diagnosis: Principal ICD Codes: K83.1 - Obstruction of bile duct Status: Acute (2) Pancreatic mass Diagnosis: Principal ICD Codes: K86.9 - Disease of pancreas, unspecified Status: Chronic (3) Choking sensation Diagnosis: Principal ICD Codes: R09.89 - Other specified symptoms and signs involving the circulatory and respiratory systems Consultants Dr. Tavarez, Gastroenterology Dr. Aguirre, IR Procedures Biliary stent placed by IR 04/2905/01/2017 uncomplicated biliary stent. Exchange of internal/external drain for a PTHD by IR CBC/BMP: 04/30/17 0643 05/02/17 0345 Significant Findings Laboratory Tests Test 04/30/17 06:43 05/01/17 13:29 05/02/17 03:45 Red Blood Count 3.76 MIL/MM3 (4.00-5.30) Hemoglobin 11.2 GM/DL (11.6-15.3) Hematocrit 32.8 % (35.0-46.0) Neutrophils (%) (Auto) 78.9 % (16.0-70.0) Creatinine 0.44 MG/DL (0.50-1.00) 0.42 MG/DL (0.50-1.00) Random Glucose 66 MG/DL (74-106) 169 MG/DL (74-106) 114 MG/DL (74-106) Albumin 2.7 GM/DL (3.4-5.0) 2.6 GM/DL (3.4-5.0) 2.6 GM/DL (3.4-5.0) Alkaline Phosphatase 747 U/L (45-117) 594 U/L (45-117) 573 U/L (45-117) Aspartate Amino Transf (AST/SGOT) 350 U/L (15-37) 122 U/L (15-37) 92 U/L (15-37) Alanine Aminotransferase (ALT/SGPT) 714 U/L (10-53) 425 U/L (10-53) 375 U/L (10-53) Total Bilirubin 4.7 MG/DL (0.2-1.0) 4.0 MG/DL (0.2-1.0) 4.5 MG/DL (0.2-1.0) Potassium Level 3.3 MEQ/L (3.5-5.1) 3.2 MEQ/L (3.5-5.1) Blood Urea Nitrogen 5 MG/DL (7-18) 2 MG/DL (7-18) Calcium Level 8.4 MG/DL (8.5-10.1) Direct Bilirubin 2.9 MG/DL (0.0-0.2) Indirect Bilirubin 1.1 MG/DL (0.0-0.8) PE at Discharge General: NAD, AAOx3, Jaundice Chest: CTA Cardiac: Regular Abd: +BS, soft, mildly distended, mild mid epigastric tenderness. percutaneous drain in place draining green liquid Ext: No edema Hospital Course Common biliary duct obstruction - Pt is a 67 y/o female with known pancreatic mass first noted in 07/2015 and elevated LFTs. Pt had previous outpt workup which included a PET/CT in 07/2015 which was negative. - She recently developed over the last one month increasing epigastric pain, increased stool frequency, tea-colored urine and jaundice. - She was admitted to [facility] and labs revealed an increase in her bilirubin to 5.5 with elevated transaminases, AST 405, ALT 732, AlkPhos 971. - She has been afebrile - Pt was seen by Dr. Reilly at [facility] and ERCP was attempted on 04/27/17 for biliary stent placement but was unsuccessful. The procedure report noted a prominent ampullae with bulging, pancreatic duct dilated with abrupt cut off in the head of the pancreas, CBD dilated with abrupt cut off in the head of the pancreas consistent with pancreatic head mass - Pt also had a colonoscopy performed on 04/27 as there was reported concern over a questionable colonic mass and the colonoscopy was normal. - The patient was transferred to [facility] for PTC by interventional radiology. - Repeat labs on 04/28 with Tbili 4.1, AST 432, ALT 763, AlkPhos 948. - The interventional radiologist, Dr. Aguirre, reviewed the images from [facility] - 04/29 patient is S/P biliary stent and I/E placement 04/29 with IR. Case discussed with IR plan to cap drain in 48 hours - We will continue Ancef 1 gram IV BID as recommended by GI in the procedure report from Dr. Reilly. DC Ancef - 04/30 EUS with FNA with Dr. Warren, pathology pending - Repeat LFTs remain elevated bilirubin 4.7, AST 350, ALT 714 - repeat labs pending for 05/01 - pathology results pending if nondiagnostic will need to obtain bx, patient NPO in preparation for bx Discussed with pathology (05/01) FNA revealed fibrosis but not enough tissue to r/o malignancy. - 05/01/2017, bile duct biopsy by interventional radiology pathology pending - Supportive care - DVT prophylaxis with SCDs Pancreatic mass - See above. Choking sensation c/o choking sensation in throat worse when she bends down. This sensation started after the EUS procedure. Patient evaluated by Dr. Jackson and Dr. Tavarez. spot of irritation/ ulceration on Uvula improved with Chloraseptic spray Cough nonproductive Chest x-ray reviewed small parenchymal changes left base trace free air probably related to biliary tube. IS ordered patient started to take home and use 10 times per hour while awake Ventolin inhaler and Tessalon Perles at home if needed Pt Condition on Discharge: Stable Discharge Disposition: Disch w/ Home Health Serv Discharge Instructions DIET: Follow Instructions for: As Tolerated, No Restrictions Activities you can perform: Regular-No Restrictions Follow up Referrals: Gastroenterology - 1 Week with Rosibel Reilly MD New Medications: Albuterol 18 GM Inh (Ventolin Hfa 18 GM Inh) 90 Mcg/Act Aer 1 PUFF INH Q4H PRN for cough/SOB, #1 INHALER 0 Refills Benzonatate (Tessalon Perles) 100 Mg Cap 200 MG PO TID PRN for COUGH, #20 CAP 0 Refills Docusate Sodium (Colace) 100 Mg Capsule 1 TAB PO BID for stool softener, #30 TAB Fentanyl (Duragesic) 25 Mcg/Hour Patch.td72 1 PATCH T-DERMAL Q3D for Pain Management, #10 PATCH 0 Refills Oxycodone (Oxycodone) 5 Mg Tab 20 MG PO Q4H PRN for pain 1-10, #20 TAB 0 Refills Additional Information Patient examined. Assessment and plan formulated with Elida Tanner PA-C. I agree with the above. Elida Tanner May 02, 2017 10:43 Margarito Jackson DO May 04, 2017 01:16
[2017-05-02] MEDS ORDERED: VENTAER INH (10:44)
--- NOTE | 2017-05-02 11:01 | RADRPT ---
EXAM DATE/TIME: 05/02/2017 10:31 [facility] COMPARISON: No previous studies available for comparison. INDICATIONS : Cough with throat discomfort. MEDICAL HISTORY : Bronchiectasis. SURGICAL HISTORY : None. ENCOUNTER: Initial ACUITY: 1 day PAIN SCORE: 0/10 LOCATION: Bilateral chest FINDINGS: Minimal parenchymal changes left base. Right lung clear. There are tube in good position. Trace fr ee air under diaphragm probably related to biliary tube. CONCLUSION: Minimal parenchymal changes left base Trace free air probably related to biliary tube. Giovanni Rodriguez MD FACR on May 02, 2017 at 10:57 Board Certified Radiologist. This report was verified electronically.
[2017-05-02] MEDS ORDERED: BENZ100 PO (11:59)
[2017-05-02] MEDS ORDERED: FENT25T T-DERMAL (11:59)
[2017-05-02] MEDS ORDERED: OXYC-392 PO (11:59)
[2017-05-02 12:15] VITALS: BP_SYST 115; BP_SYST 165; BP_DIAS 53; BP_DIAS 75; PULSE 88; RESP 20; TEMP 98.5; TEMP 99.7; O2SAT 90; O2SAT 93
--- NOTE | 2017-05-02 12:30 | HHI.FF ---
Face to Face Verification Diagnosis: (1) Common biliary duct obstruction (2) Pancreatic mass Physical Therapy Order: Evaluate and Treat, Improve ambulation Home Health Nursing Order: Medical education Signs/symptoms of disease process Medication education-adverse effect Wound care and dressing changes Instructions: 4x4 dressing with paper tape to right side drain site to be changed Qday I have seen patient Aster Benítez on 05/02/17. My clinical findings support the need for the requested home health care services because: Deconditioned w/ increased weakness Limited ability to care for self I certify that my clinical findings support that this patient is homebound because: Post-op weakness Unsteady gait/balance Elida Tanner May 02, 2017 12:30 Margarito Jackson DO May 02, 2017 14:52
[2017-05-02] MEDS ORDERED: COLA100C5 PO (12:32)
[2017-05-03] MEDS ORDERED: REMOVE OLD DURAGESIC (FENTANYL) PATCH T-DERMAL SCH (19:00)
--- NOTE | 2017-05-04 09:44 | MR ---
cc: CHARITYTHU DATE: 04/29/17 05/14/1949 ENDOSCOPIST Mary Jane Warren MD PRIMARY POWER GENERATION TURBINE ROOM OPERATOR Dr. Rosibel Reilly PROCEDURE Endoscopic ultrasound with fine-needle aspiration. INDICATIONS This is a 67-year-old lady who was hospitalized for obstructive jaundice requiring interventional radiology PTC drain placement. Found to have a pancreatic mass. I was asked to evaluate and perform endoscopic ultrasound with biopsies. Prior to procedure, the patient's lungs were clear. Heart sounds were normal. Monitoring was on the appropriate monitor at all times. BP pulses oximetry were monitored and remained within normal limits with CR support. Informed consent was obtained, benefits, alternatives included but not limited to risk of bleeding, infection, perforation, adverse reaction to sedation, failure to identify pathology, risk of pancreatitis, prolonged hospitalization and failure to identify pathology were all explained to the patient and her daughter REMA who accepted all risks. PROCEDURE IN DETAIL The scope tip of the Olympus gastroscope was advanced into the oropharynx down the esophagus into the stomach down into second portion of the duodenum. No acute pathology was noted. The scope was removed. Scope tip of the Pentax curvilinear echo endoscope was advanced into the oropharynx down the esophagus into stomach down into the second portion of the duodenum. This organ and the surrounding structures were examined and findings as listed below. Celiac axis - no evidence of celiac lymphadenopathy. Pancreas - There appears to be a large hypoechoic solid appearing mass in the head of the pancreas measuring 3.4 cm x 2.6 cm causing extrinsic compression of the common bile duct as well as mild compression of the pancreatic duct. In the tail of the pancreas, there also appears to be a mixed hypoechoic and polycystic lesion measuring 1.6 cm x 1.8 cm with no direct invasion into the splenic vein but it does abut the splenic artery. Biliary system - the common bile duct is dilated proximally. There is an internal/external drain located within the lumen of the common bile duct. Due to the artifact effect of the stent, some shadowing effects inhibiting visualization. The pancreatic head mass does not appear to be invading the portal vein or the superior mesenteric vein. Using the Olympus 22-gauge FNA needle in the trans duodenal approach, three passes were performed extracting core tissues of the pancreatic head mass and this was sent in for cytopathology. Using a separate Olympus 22-gauge EZ shot three needle, the pancreatic tail mass was also sampled in a single pass and core tissue samples were submitted for further pathology. No lymph nodes were identified. Liver - no focal liver lesions noted on the current exam, although it was somewhat limited due to limited image of the right lobe due to the recently placed internal/external drain. The scope was withdrawn completely. The patient tolerated procedure well, was sent to recovery without immediate complications. ENDO-SONOGRAPHIC IMPRESSION 1. Celiac axis - no evidence of celiac lymphadenopathy. 2. Pancreas There is a hypoechoic mass measuring 3 cm x 2.6 cm in the head of the pancreas status post fine-needle aspiration. 3. A separate mass in the tail of the pancreas measuring 1.6 cm x 1.7 cm status post fine-needle aspiration. 4. Biliary system - common bile duct is dilated and has a plastic internal drain within the lumen. 5. Ampulla - unable to examine 6. Liver - no focal liver lesions noted. 7. Staging - T2 N0 MX applied if malignancy is confirmed on the biopsies. RECOMMENDATIONS 1. Await pathology result 2. Resume diet, activity and medications. 4. Monitor LFTs. Further recommendations per Dr. Reilly. MD JORGE A Chance/ /6:48 PM /9:26 AM MTDD
== END 2017-05-02 15:00 | disposition home health service (06) | DRG 445 ==
LOC: N05A 22:53 → OBSVTOIN 04-28 12:03
PROVIDERS: ADMIT Hospitalist; ATTEND Hospitalist
PROC: BF101ZZ Fluoroscopy of Bile Ducts using Low Osmolar Contrast (ICD-10-PCS; 2017-04-29)
PROC: 0DJ08ZZ Inspection of Upper Intestinal Tract, Via Natural or Artificial Opening Endoscopic (ICD-10-PCS; 2017-04-29)
PROC: 0FBG8ZX Excision of Pancreas, Via Natural or Artificial Opening Endoscopic, Diagnostic (ICD-10-PCS; 2017-04-29)
PROC: 0F9430Z Drainage of Gallbladder with Drainage Device, Percutaneous Approach (ICD-10-PCS; principal; 2017-04-29 17:13)
PROC: 0F793DZ Dilation of Common Bile Duct with Intraluminal Device, Percutaneous Approach (ICD-10-PCS; 2017-05-01)
DX: K83.1 Obstruction of bile duct (principal); K86.1 Other chronic pancreatitis; K86.89 Other specified diseases of pancreas; Z83.3 Family history of diabetes mellitus; K86.9 Disease of pancreas, unspecified
CPT/HCPCS: 43242; 47534; 47536; 47538; 47543; 71010; 80048; 80053; 80076; 85025; 85610; 85730; 88304; 88305; 88309; 94664; 99151; 99152; 99153; C1729; C1769; C1876; C1887; C1894; J0690; J1170; J1956; J2060; J2250; J2270; J2370; J2405; J3010; J7030; J7613; Q9967

== ENCOUNTER 2017-05-11 15:14 | Inpatient (IN) | payer MEDICARE ==
[~2017-05-11] VITALS: Ht 157.5 cm; Wt 62.9 kg
[~2017-05-11 15:14] MED LIST: BENZ100 PO; COLA100C5 PO; FENT25T T-DERMAL; OXYC-392 PO; VENTAER INH
[2017-05-11] MEDS ORDERED: IOHEXOL 350 MG/ML 10 ML VIAL (for RAD DIAG) IVCONTRAST ONE (15:15)
[2017-05-11 15:18] VITALS: BP 105/56; PULSE 103; RESP 22; TEMP 98.3; O2SAT 94
[2017-05-11] MEDS ORDERED: SODIUM CHLOR 0.9% 1000 ML INJ 1,000 ML IV SCH (16:27)
[2017-05-11] MEDS ORDERED: ONDANSETRON HCL 4 MG/2 ML VIAL IVP ONE (16:30)
[2017-05-11] MEDS ORDERED: HYDROmorphone HCL PF 2 MG/ML VIAL IV PUSH ONE (16:30)
[2017-05-11] MEDS ORDERED: SODIUM CHLORIDE 0.9% FLUSH 10 ML FLUSH IV FLUSH PRN (16:30)
[2017-05-11 17:08] LABS: AUTOMATED NEUTROPHIL # 32.3 TH/MM3 (1.8-7.7); BASOPHIL # 0.1 TH/MM3 (0-0.2); BASOPHIL % 0.2 % (0.0-2.0); EOSINOPHIL # 0.1 TH/MM3 (0-0.4); EOSINOPHIL % 0.3 % (0.0-4.0); HEMATOCRIT 33.7 % (35.0-46.0); HEMOGLOBIN 11.2 GM/DL (11.6-15.3); LYMPH % 3.1 % (9.0-44.0); LYMPHOCYTE # 1.1 TH/MM3 (1.0-4.8); MEAN CELL VOLUME 85.1 FL (80.0-100.0); MEAN CORPUSCULAR HEMOGLOBIN 28.4 PG (27.0-34.0); MEAN CORPUSCULAR HGB CONC 33.4 % (32.0-36.0); MEAN PLATELET VOLUME 8.1 FL (7.0-11.0); NEUT % 93.4 % (16.0-70.0); PLATELET COUNT 662 TH/MM3 (150-450); RED BLOOD COUNT 3.96 MIL/MM3 (4.00-5.30); RED CELL DISTRIBUTION WIDTH 13.2 % (11.6-17.2); WHITE BLOOD COUNT 34.6 TH/MM3 (4.0-11.0)
--- NOTE | 2017-05-11 17:20 | PD ---
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 The patient states she was recently hospitalized for biliary obstruction. They tried to place a stent in the biliary tract, however, are unsuccessful and subsequently had interventional radiology place a biliary tube, by Dr. Aguirre. The patient states she had 2 biopsies of pancreatic masses, came back inflammatory, unsure if it is cancer. The patient was referred to the [facility], but has not been seen at the [facility] as of yet. The patient was seen by the corn breeder, Dr. Fitzpatrick, during her hospitalization. She returned home, however, several days ago developed some leakage around the tube. The patient also had some abdominal pain and fever. The patient was seen at an emergency department in [place], was prescribed pain medications, but no workup was instituted for fever. The patient states she has a chronic cough secondary to punctate cases, but has had increased wheezing. She denies any dysuria. She does complain of some discomfort in the right upper quadrant where the tube has been placed. She does note there is drainage around the tube which appears to be a clear pink liquid. The patient was seen by the home health care nurse who referred her to the emergency department for further evaluation. The patient has not had a fever today, but did have a fever 2 days ago with a white count of 17 per her report. The patient's symptoms are moderate, there are no known alleviating or exacerbating factors. PFSH Past Medical History Arthritis: Yes (HANDS, LOWER BACK ) Autoimmune Disease: No Cancer: Yes (POSSIBILITY OF PANCREATIC) Cardiovascular Problems: No COPD: Yes Endocrine: No Gastrointestinal Disorders: Yes Genitourinary: No Immune Disorder: No Musculoskeletal: Yes Neurologic: No Psychiatric: No Reproductive: No Respiratory: Yes Influenza Vaccination: Yes ?: Not Past Surgical History Cholecystectomy: Yes Other Surgery: Yes (GALLBLADDER REMOVED 5 YEARS AGO) Social History Alcohol Use: No Tobacco Use: No Substance Use: No Allergies-Medications (Allergen,Severity, Reaction): Coded Allergies: hydromorphone (Verified Allergy, Severe, Itching, 05/11/17) Reported Meds & Prescriptions Reported Meds & Active Scripts Active Colace (Docusate Sodium) 100 Mg Capsule 1 Tab PO BID Oxycodone (Oxycodone HCl) 5 Mg Tab 20 Mg PO Q4H PRN Duragesic (Fentanyl) 25 Mcg/Hour Patch.td72 1 Patch T-DERMAL Q3D Tessalon Perles (Benzonatate) 100 Mg Cap 200 Mg PO TID PRN Ventolin Hfa 18 GM Inh (Albuterol Sulfate) 90 Mcg/Act Aer 1 Puff INH Q4H PRN Review of Systems Except as stated in HPI: all other systems reviewed are Neg General / Constitutional: Positive: Fever HENT: No: Sore Throat, Congestion Cardiovascular: No: Chest Pain or Discomfort Respiratory: Positive: Cough, No: Shortness of Breath Gastrointestinal: Positive: Abdominal Pain, No: Nausea, Vomiting Genitourinary: No: Dysuria Musculoskeletal: No: Myalgias, Arthralgias Physical Exam Narrative GENERAL: Awake, alert, pleasant 67-year-old female who appears her stated age and is in no acute respiratory distress. SKIN: Focused skin assessment warm/dry. HEAD: Atraumatic. Normocephalic. EYES: Pupils equal and round. No scleral icterus. No injection or drainage. ENT: No nasal bleeding or discharge. Mucous membranes pink and moist. NECK: Trachea midline. No JVD. CARDIOVASCULAR: Regular, tachycardic with a heart rate of 110. RESPIRATORY: No accessory muscle use. Prolonged expiratory phases with wheezing all 4 lobes. GASTROINTESTINAL: Abdomen soft, tender to palpation right upper quadrant. Biliary drain in place with clear brown fluid. Dressing has serosanguineous type fluid that is pink. No purulent drainage noted. MUSCULOSKELETAL: No obvious deformities. No clubbing. No cyanosis. No edema. NEUROLOGICAL: Awake and alert. No obvious cranial nerve deficits. Motor grossly within normal limits. Normal speech. PSYCHIATRIC: Appropriate mood and affect; insight and judgment normal. Data Data Last Documented VS Vital Signs Date Time Temp Pulse Resp B/P (MAP) Pulse Ox O2 Delivery O2 Flow Rate FiO2 05/11/17 16:23 94 Room Air 05/11/17 15:18 98.3 103 22 105/56 (72) Orders Orders Complete Blood Count With Diff (05/11/17 16:27) Comprehensive Metabolic Panel (05/11/17 16:27) Lipase (05/11/17 16:27) Lactic Acid (05/11/17 16:27) Urinalysis - C+S If Indicated (05/11/17 16:27) Ct Abd/Pel W Iv Contrast(Rout) (05/11/17 16:27) Iv Access Insert/Monitor (05/11/17 16:27) Ecg Monitoring (05/11/17 16:27) Oximetry (05/11/17 16:27) Ondansetron Inj (Zofran Inj) (05/11/17 16:30) Sodium Chlor 0.9% 1000 Ml Inj (Ns 1000 M (05/11/17 16:27) Sodium Chloride 0.9% Flush (Ns Flush) (05/11/17 16:30) Electrocardiogram (05/11/17 16:27) Chest, Single Ap (05/11/17 16:27) Hydromorphone Pf Inj (Dilaudid Pf Inj) (05/11/17 16:30) Piperacil-Tazo 4.5 Gm Premix (Zosyn 4.5 (05/11/17 17:45) Metronidazole 500 Mg Inj (Flagyl 500 Mg (05/11/17 18:30) Morphine Inj (Morphine Inj) (05/11/17 18:30) Iohexol 350 Inj (Omnipaque 350 Inj) (05/11/17 15:15) Blood Culture (05/11/17 18:43) Sodium Chlor 0.9% 1000 Ml Inj (Ns 1000 M (05/11/17 18:45) Admit Order (Ed Use Only) (05/11/17 18:51) Labs Laboratory Tests Test 05/11/17 16:37 White Blood Count 34.6 TH/MM3 Red Blood Count 3.96 MIL/MM3 Hemoglobin 11.2 GM/DL Hematocrit 33.7 % Mean Corpuscular Volume 85.1 FL Mean Corpuscular Hemoglobin 28.4 PG Mean Corpuscular Hemoglobin Concent 33.4 % Red Cell Distribution Width 13.2 % Platelet Count 662 TH/MM3 Mean Platelet Volume 8.1 FL Neutrophils (%) (Auto) 93.4 % Lymphocytes (%) (Auto) 3.1 % Monocytes (%) (Auto) 3.0 % Eosinophils (%) (Auto) 0.3 % Basophils (%) (Auto) 0.2 % Neutrophils # (Auto) 32.3 TH/MM3 Lymphocytes # (Auto) 1.1 TH/MM3 Monocytes # (Auto) 1.0 TH/MM3 Eosinophils # (Auto) 0.1 TH/MM3 Basophils # (Auto) 0.1 TH/MM3 CBC Comment AUTO DIFF Differential Total Cells Counted 100 Neutrophils % (Manual) 93 % Band Neutrophils % 2 % Lymphocytes % 3 % Monocytes % 2 % Neutrophils # (Manual) 32.9 TH/MM3 Differential Comment FINAL DIFF MANUAL Dohle Bodies PRESENT Platelet Estimate HIGH Platelet Morphology Comment NORMAL Blood Urea Nitrogen 33 MG/DL Creatinine 0.97 MG/DL Random Glucose 109 MG/DL Total Protein 8.1 GM/DL Albumin 2.3 GM/DL Calcium Level 8.6 MG/DL Alkaline Phosphatase 290 U/L Aspartate Amino Transf (AST/SGOT) 14 U/L Alanine Aminotransferase (ALT/SGPT) 56 U/L Total Bilirubin 2.4 MG/DL Sodium Level 131 MEQ/L Potassium Level 3.1 MEQ/L Chloride Level 93 MEQ/L Carbon Dioxide Level 29.0 MEQ/L Anion Gap 9 MEQ/L Estimat Glomerular Filtration Rate 58 ML/MIN Lactic Acid Level 1.4 mmol/L Lipase 50 U/L MDM Medical Decision Making Medical Screen Exam Complete: Yes Emergency Medical Condition: Yes Medical Record Reviewed: Yes Interpretation(s) EKG reveals sinus tachycardia with a heart rate of 101. Inverted T-wave noted in lead 3. Laboratory Tests Test 05/11/17 16:37 White Blood Count 34.6 TH/MM3 Red Blood Count 3.96 MIL/MM3 Hemoglobin 11.2 GM/DL Hematocrit 33.7 % Mean Corpuscular Volume 85.1 FL Mean Corpuscular Hemoglobin 28.4 PG Mean Corpuscular Hemoglobin Concent 33.4 % Red Cell Distribution Width 13.2 % Platelet Count 662 TH/MM3 Mean Platelet Volume 8.1 FL Neutrophils (%) (Auto) 93.4 % Lymphocytes (%) (Auto) 3.1 % Monocytes (%) (Auto) 3.0 % Eosinophils (%) (Auto) 0.3 % Basophils (%) (Auto) 0.2 % Neutrophils # (Auto) 32.3 TH/MM3 Lymphocytes # (Auto) 1.1 TH/MM3 Monocytes # (Auto) 1.0 TH/MM3 Eosinophils # (Auto) 0.1 TH/MM3 Basophils # (Auto) 0.1 TH/MM3 CBC Comment AUTO DIFF Differential Total Cells Counted 100 Neutrophils % (Manual) 93 % Band Neutrophils % 2 % Lymphocytes % 3 % Monocytes % 2 % Neutrophils # (Manual) 32.9 TH/MM3 Differential Comment FINAL DIFF MANUAL Dohle Bodies PRESENT Platelet Estimate HIGH Platelet Morphology Comment NORMAL Blood Urea Nitrogen 33 MG/DL Creatinine 0.97 MG/DL Random Glucose 109 MG/DL Total Protein 8.1 GM/DL Albumin 2.3 GM/DL Calcium Level 8.6 MG/DL Alkaline Phosphatase 290 U/L Aspartate Amino Transf (AST/SGOT) 14 U/L Alanine Aminotransferase (ALT/SGPT) 56 U/L Total Bilirubin 2.4 MG/DL Sodium Level 131 MEQ/L Potassium Level 3.1 MEQ/L Chloride Level 93 MEQ/L Carbon Dioxide Level 29.0 MEQ/L Anion Gap 9 MEQ/L Estimat Glomerular Filtration Rate 58 ML/MIN Lactic Acid Level 1.4 mmol/L Lipase 50 U/L Last Impressions Chest X-Ray 05/11/171626 Signed Impressions: Service Date/Time: Thursday, May 11, 2017 17:18 - CONCLUSION: Small right pleural effusion and right lung base consolidation may represent pneumonia. Mary Jane Garcia MD Abdomen/Pelvis CT 05/11/171626 Signed Impressions: Service Date/Time: Thursday, May 11, 2017 18:01 - CONCLUSION: 1. Right pleural effusion with consolidation right lung base, right middle lobe and lingula may represent pneumonia. 2. There are gas bubbles with fluid collections in the right perihepatic space in addition to subcapsular fluid collection all of which could be related to placement of transhepatic percutaneous biliary external/internal drain. 3. There are cystic masses in the body and head of the pancreas and a solid mass may be present in the head of the pancreas with slight dilatation of the pancreatic duct. Mary Jane Garcia MD Differential Diagnosis Differential diagnosis includes sepsis, abscess, biliary leak, pyelonephritis, UTI, pneumonia, septicemia, bacteremia. Narrative Course IV was established, labs are drawn and sent, the patient was placed on cardiac telemetry monitoring and continuous pulse oximetry monitoring. UA was sent to lab. Chest x-ray was obtained. CT of the abdomen and pelvis was ordered to evaluate for possible abscess. Patient's white count was 34.6, she was tachycardic, meets SIRS criteria. The patient was administered Zosyn intravenously. Chest x-ray reveals right small pleural effusion and possible right lower lobe infiltrate. The patient's CT of the abdomen and pelvis reveals right pleural effusion with consolidation right lung base, right middle lobe, and lingula which may represent pneumonia. There are gas bubbles with fluid collections in the right perihepatic space in addition a subcapsular fluid collection on which could be related to placement of transhepatic percutaneous biliary external/internal drain. No cystic masses in the body and head of the pancreas and a solid mass may be present in the head of the pancreas with slight dilatation of the pancreatic duct. The patient initially received Zosyn and Flagyl for possible intra-abdominal abscess. The patient does appear to have pneumonia, Zosyn and Flagyl should cover. I discussed the patient with Dr. Mcclure who agrees with admission. Sepsis Criteria SIRS Criteria (2 or more): Heart rate over 90, WBC > 89478, < 4000 or > 10% bands Criteria Outcome: Meets SIRS criteria Physician Communication Physician Communication I discussed the patient with Dr. Mcclure who agrees with admission. Diagnosis Primary Impression: Pneumonia Qualified Codes: J18.9 - Pneumonia, unspecified organism Additional Impressions: Sepsis Qualified Codes: A41.9 - Sepsis, unspecified organism Leukocytosis Qualified Codes: D72.829 - Elevated white blood cell count, unspecified Admitting Information Admitting Physician Requests: Admit Condition: Stable Pavan Thacker MD May 11, 2017 17:20
[2017-05-11 17:27] LABS: ALBUMIN 2.3 GM/DL (3.4-5.0); AST (GOT) 14 U/L (15-37); BLOOD UREA NITROGEN 33 MG/DL (7-18); CALCIUM 8.6 MG/DL (8.5-10.1); CHLORIDE 93 MEQ/L (98-107); CREATININE 0.97 MG/DL (0.50-1.00); GLOMERULAR FILTRATION RATE 58 ML/MIN (>89); GLUCOSE,RANDOM 109 MG/DL (74-106); LIPASE 50 U/L (73-393); SODIUM (NA) 131 MEQ/L (136-145)
[2017-05-11 17:28] LABS: ALT (GPT) 56 U/L (10-53)
[2017-05-11 17:30] LABS: ALKALINE PHOSPHATASE 290 U/L (45-117); TOTAL BILIRUBIN ADULT 2.4 MG/DL (0.2-1.0); TOTAL PROTEIN 8.1 GM/DL (6.4-8.2)
[2017-05-11 17:36] LABS: BANDS 2 % (0-6); LYMPHOCYTES 3 % (9-44); MONOCYTES 2 % (0-8); NEUTROPHIL # MANUAL DIFF 32.9 TH/MM3 (1.8-7.7); POLYS (SEG NEUTROPHILS) 93 % (16-70)
[2017-05-11 17:37] LABS: DOHLE BODIES PRESENT (NONE SEEN)
[2017-05-11] MEDS ORDERED: PIPERACIL-TAZO 4.5 GM PREMIX 100 ML IV ONE (17:45)
--- NOTE | 2017-05-11 17:54 | RADRPT ---
EXAM DATE/TIME: 05/11/2017 17:18 [facility] COMPARISON: CHEST SINGLE AP, May 02, 2017, 10:31. INDICATIONS : Cough MEDICAL HISTORY : Bronchiectasis. SURGICAL HISTORY : None. ENCOUNTER: Initial ACUITY: 1 day PAIN SCORE: 0/10 LOCATION: Bilateral chest FINDINGS: Small right pleural effusion is present not present previously with slight right lung base consolidat ion. The left lung is clear. or architectural distortion CONCLUSION: Small right pleural effusion and right lung base consolidation may represent pneumonia. Mary Jane Garcia MD on May 11, 2017 at 17:51 Board Certified Radiologist. This report was verified electronically.
[2017-05-11] MEDS ORDERED: MORPHINE SULFATE 2 MG/ML INJ IV PUSH ONE (18:30)
[2017-05-11] MEDS ORDERED: metroNIDAZOLE 500 MG INJ 100 ML IV ONE (18:30)
--- NOTE | 2017-05-11 18:43 | RADRPT ---
EXAM DATE/TIME: 05/11/2017 18:01 [place] COMPARISON: No previous studies available for comparison. INDICATIONS : Bleeding with swelling at biliary drainage site. IV CONTRAST: 70 cc Omnipaque 350 (iohexol) IV ORAL CONTRAST: No oral contrast ingested. RADIATION DOSE: 6.77 CTDIvol (mGy) MEDICAL HISTORY : None SURGICAL HISTORY : Cholecystectomy. ENCOUNTER: Initial ACUITY: 1 week PAIN SCALE: 10/10 LOCATION: Right upper quadrant TECHNIQUE: Volumetric scanning of the abdomen and pelvis was performed. Using automated exposure control and ad justment of the mA and/or kV according to patient size, radiation dose was kept as low as reasonably achievable to obtain optimal diagnostic quality images. DICOM format image data is available electro nically for review and comparison. FINDINGS: CT Abdomen: Small right pleural effusion is present with right lung base consolidation and slight air space process within right middle lobe and lingula. There are bubbles of free air within the anterior perihepatic space may be from placement of the hepatic drain with subcapsular fluid collection maxim um thickness of 2.4 cm also probably postprocedural change may be resolving hemorrhage. There is a cy stic mass in the body of the pancreas with a smaller one adjacent to it and it is difficult to exclud e a solid mass in the head of the pancreas with additional cystic changes in the body and head of the pancreas with slight dilatation of the pancreatic duct. The liver, spleen, kidneys, adrenals are unr emarkable. There is no evidence for any appreciable pathological adenopathy, free fluid, or bowel obs truction. CT pelvis: There is no evidence for mass, abscess formation, or any significant adenopathy within the pelvis. CONCLUSION: 1. Right pleural effusion with consolidation right lung base, right middle lobe and lingula may repre sent pneumonia. 2. There are gas bubbles with fluid collections in the right perihepatic space in addition to subcaps ular fluid collection all of which could be related to placement of transhepatic percutaneous biliary external/internal drain. 3. There are cystic masses in the body and head of the pancreas and a solid mass may be present in th e head of the pancreas with slight dilatation of the pancreatic duct. Mary Jane Garcia MD on May 11, 2017 at 18:31 Board Certified Radiologist. This report was verified electronically.
[2017-05-11] MEDS ORDERED: SODIUM CHLOR 0.9% 1000 ML INJ 1,000 ML IV ONE (18:45)
[2017-05-11] MEDS ORDERED: DEXT1LIQ15 PO (19:27)
[2017-05-11] MEDS ORDERED: TYLE325T PO (19:27)
[2017-05-11] MEDS ORDERED: HYDR-3288 PO (19:27)
[2017-05-11] MEDS ORDERED: MORP1TAB24 PO (19:27)
[2017-05-11 19:28] LABS: BILIRUBIN, URINE NEG (NEG); BLOOD, URINE NEG (NEG); GLUCOSE,URINE NEG (NEG); KETONE, URINE NEG (NEG); NITRITE,URINE NEG (NEG); PH, URINE 5.5 (5.0-8.5); SQUAMOUS EPITHELIAL CELL URINE <1 /hpf (0-5); URINE COLOR YELLOW (YELLW/STRAW); URINE LEUKOCYTE ESTERASE NEG (NEG)
[2017-05-11 20:30] VITALS: BP 100/57; PULSE 105; RESP 20; TEMP 98.4; O2SAT 96
[2017-05-11] MEDS ORDERED: SODIUM CHLOR 0.45% 1000 ML INJ 1,000 ML IV SCH (21:31)
[2017-05-11] MEDS ORDERED: BISACODYL 10 MG SUPP RECTAL PRN (21:45)
[2017-05-11] MEDS ORDERED: RESP: ALBUTEROL 2.5 MG/IPRATROPIUM 0.5 MG NEB (SCH) NEB ONE (21:45)
[2017-05-11] MEDS ORDERED: SENNOSIDES 8.6 MG TAB PO PRN (21:45)
[2017-05-11] MEDS ORDERED: LACTULOSE SYRUP 20 GM/30 ML CUP PO PRN (21:45)
[2017-05-11] MEDS ORDERED: NALOXONE HCL 0.4 MG/ML AMP IV PUSH PRN (21:45)
--- NOTE | 2017-05-11 21:45 | HHI.HP ---
HPI Service CP Hospitalists Primary Care Physician No Primary Care Physician Admission Diagnosis pneumonia, sepsis, leukocytosis, biliary stent Chief Complaint: increasing cough weakness fever over 2 days Travel History International Travel<30 Days: No Contact w/Intl Traveler <30 Da: No Traveled to Known Affected Are: No Sepsis Criteria SIRS Criteria (2 or more): Temp > 100.9 or < 96.8, Heart rate over 90, WBC > 03949, < 4000 or > 10% bands History of Present Illness The patient is a 67-year-old female who presents to the emergency department for continuing abdominal pain and leakage around the biliary tube. The patient states she was recently hospitalized for biliary obstruction. They tried to place a stent in the biliary tract, however, are unsuccessful and subsequently had interventional radiology place a biliary tube, by Dr. Aguirre. The patient states she had 2 biopsies of pancreatic masses, came back inflammatory, unsure if it is cancer. Patient had negative PET scan 1 1/2 years ago. The patient was referred to the [facility], but has not been seen at the [facility] as approval just obtained.. The patient was seen by the barge worker, Dr. Fitzpatrick, during her hospitalization. She returned home, however, several days ago developed some leakage around the tube. The patient also had abdominal pain and fever. The patient was seen at an emergency department in [place], was prescribed pain medications, but no workup was instituted for fever. The patient states she has a chronic cough and she states has hx bronchiectasis , and has had increased wheezing. She denies any dysuria. She does complain of discomfort in the right upper quadrant where the tube has been placed. She does note there is drainage around the tube which appears to be a clear pink liquid. The patient was seen by the home health care nurse who referred her to the emergency department for further evaluation. The patient has not had a fever today, but did have a fever 2 days ago with a white count of 17 per her report. The patient's symptoms are moderate, there are no known alleviating or exacerbating factors. On evaluation CT abdomen shows rt sided infiltrates lung and some fluid biliary but radiology feels more related to biliary drain . Patient does have WBC count 55233. Review of Systems Respiratory: COMPLAINS OF: Cough Gastrointestinal: COMPLAINS OF: Abdominal pain, Nausea Past Family Social History Past Medical History pancreatic mass,lung nodule djd,GERD copd Past Surgical History gallbladder,biliary drain Reported Medications Colace (Docusate Sodium) 100 Mg Capsule 1 Tab PO BID Oxycodone (Oxycodone HCl) 5 Mg Tab 20 Mg PO Q4H PRN Duragesic (Fentanyl) 25 Mcg/Hour Patch.td72 1 Patch T-DERMAL Q3D Tessalon Perles (Benzonatate) 100 Mg Cap 200 Mg PO TID PRN Ventolin Hfa 18 GM Inh (Albuterol Sulfate) 90 Mcg/Act Aer 1 Puff INH Q4H PRN Allergies: Coded Allergies: hydromorphone (Verified Allergy, Severe, Itching, 05/11/17) Social History NS,ND Physical Exam Vital Signs Vital Signs Date Time Temp Pulse Resp B/P (MAP) Pulse Ox O2 Delivery O2 Flow Rate FiO2 05/11/17 20:30 98.4 105 20 100/57 (71) 96 Room Air 05/11/17 16:23 94 Room Air 05/11/17 15:18 98.3 103 22 105/56 (72) 94 Room Air Physical Exam GENERAL: This is a well-nourished, well-developed patient, in no apparent distress. SKIN: No rashes, ecchymoses or lesions. Cool and dry. HEAD: Atraumatic. Normocephalic. No temporal or scalp tenderness. EYES: Pupils equal round and reactive. Extraocular motions intact. No scleral icterus. No injection or drainage. ENT: Nose without bleeding, purulent drainage or septal hematoma. Throat without erythema, tonsillar hypertrophy or exudate. Uvula midline. Airway patent. NECK: Trachea midline. No JVD or lymphadenopathy. Supple, nontender, no meningeal signs. CARDIOVASCULAR: Regular rate and rhythm without murmurs, gallops, or rubs. RESPIRATORY: Clear to auscultation. Breath sounds equal bilaterally. No wheezes , rales, or rhonchi. GASTROINTESTINAL: Abdomen soft tender mid and rt quadrant no rebound biliary drain in place,clear brown fluid pink MUSCULOSKELETAL: Extremities without clubbing, cyanosis, or edema. No joint tenderness, effusion, or edema noted. No calf tenderness. Negative Homans sign bilaterally. NEUROLOGICAL: Awake and alert. Cranial nerves II through XII intact. Motor and sensory grossly within normal limits. Five out of 5 muscle strength in all muscle groups. Normal speech. Laboratory Laboratory Tests Test 05/11/17 16:37 05/11/17 18:57 White Blood Count 34.6 Red Blood Count 3.96 Hemoglobin 11.2 Hematocrit 33.7 Mean Corpuscular Volume 85.1 Mean Corpuscular Hemoglobin 28.4 Mean Corpuscular Hemoglobin Concent 33.4 Red Cell Distribution Width 13.2 Platelet Count 662 Mean Platelet Volume 8.1 Neutrophils (%) (Auto) 93.4 Lymphocytes (%) (Auto) 3.1 Monocytes (%) (Auto) 3.0 Eosinophils (%) (Auto) 0.3 Basophils (%) (Auto) 0.2 Neutrophils # (Auto) 32.3 Lymphocytes # (Auto) 1.1 Monocytes # (Auto) 1.0 Eosinophils # (Auto) 0.1 Basophils # (Auto) 0.1 CBC Comment AUTO DIFF Differential Total Cells Counted 100 Neutrophils % (Manual) 93 Band Neutrophils % 2 Lymphocytes % 3 Monocytes % 2 Neutrophils # (Manual) 32.9 Differential Comment FINAL DIFF MANUAL Dohle Bodies PRESENT Platelet Estimate HIGH Platelet Morphology Comment NORMAL Blood Urea Nitrogen 33 Creatinine 0.97 Random Glucose 109 Total Protein 8.1 Albumin 2.3 Calcium Level 8.6 Alkaline Phosphatase 290 Aspartate Amino Transf (AST/SGOT) 14 Alanine Aminotransferase (ALT/SGPT) 56 Total Bilirubin 2.4 Sodium Level 131 Potassium Level 3.1 Chloride Level 93 Carbon Dioxide Level 29.0 Anion Gap 9 Estimat Glomerular Filtration Rate 58 Lactic Acid Level 1.4 Lipase 50 Urine Color YELLOW Urine Turbidity CLEAR Urine pH 5.5 Urine Specific [place] 1.047 Urine Protein 30 Urine Glucose (UA) NEG Urine Ketones NEG Urine Occult Blood NEG Urine Nitrite NEG Urine Bilirubin NEG Urine Urobilinogen LESS THAN 2.0 Urine Leukocyte Esterase NEG Urine RBC LESS THAN 1 Urine WBC 2 Urine Squamous Epithelial Cells <1 Microscopic Urinalysis Comment CULT NOT INDICATED Date/Time Source Procedure Growth Status 05/11/17 19:16 Blood Peripheral Aerobic Blood Culture Pending Received 05/11/17 19:16 Blood Peripheral Anaerobic Blood Culture Pending Received Result Diagram: 05/11/17 1637 05/11/17 1637 Imaging Last 24 hours Impressions Chest X-Ray 05/11/17 1627 Signed Impressions: Service Date/Time: Thursday, May 11, 2017 17:18 - CONCLUSION: Small right pleural effusion and right lung base consolidation may represent pneumonia. Mary Jane Garcia MD Abdomen/Pelvis CT 05/11/17 [id number] Signed Impressions: Service Date/Time: Thursday, May 11, 2017 18:01 - CONCLUSION: 1. Right pleural effusion with consolidation right lung base, right middle lobe and lingula may represent pneumonia. 2. There are gas bubbles with fluid collections in the right perihepatic space in addition to subcapsular fluid collection all of which could be related to placement of transhepatic percutaneous biliary external/internal drain. 3. There are cystic masses in the body and head of the pancreas and a solid mass may be present in the head of the pancreas with slight dilatation of the pancreatic duct. Mary Jane Garcia MD Course in er started on IV fluid and antibiotics Septic Shock Reassessment Septic shock perfusion: reassessment completed Caprini VTE Risk Assessment Caprini VTE Risk Assessment: Mod/High Risk (score >= 2) Caprini Risk Assessment Model Point Value = 1 Point Value = 2 Point Value = 3 Point Value = 5 Age 41-60 Minor surgery BMI > 25 kg/m2 Swollen legs Varicose veins or History of unexplained or recurrent spontaneous Oral contraceptives or hormone replacement Sepsis (< 1 month) Serious lung disease, including pneumonia (< 1 month) Abnormal pulmonary function Acute myocardial infarction Congestive heart failure (< 1 month) History of inflammatory bowel disease Medical patient at bed rest Age 61-74 Arthroscopic surgery Major open surgery (> 45 min) Laparoscopic surgery (> 45 min) Malignancy Confined to bed (> 72 hours) Immobilizing plaster cast Central venous access Age >= 75 History of VTE Family history of VTE Factor V Leiden Prothrombin [id number] Lupus anticoagulant Anticardiolipin antibodies Elevated serum homocysteine Heparin-induced thrombocytopenia Other congenital or acquired thrombophilia Stroke (< 1 month) Elective arthroplasty Hip, pelvis, or leg fracture Acute spinal cord injury (< 1 month) Prophylaxis Regimen Total Risk Factor Score Risk Level Prophylaxis Regimen 0-1 Low Early ambulation 2 Moderate Order ONE of the following: *Sequential Compression Device (SCD) *Heparin 5000 units SQ BID 3-4 Higher Order ONE of the following medications: *Heparin 5000 units SQ TID *Enoxaparin/Lovenox 40 mg SQ daily (WT < 150 kg, CrCl > 30 mL/min) *Enoxaparin/Lovenox 30 mg SQ daily (WT < 150 kg, CrCl > 10-29 mL/min) *Enoxaparin/Lovenox 30 mg SQ BID (WT < 150 kg, CrCl > 30 mL/min) AND/OR *Sequential Compression Device (SCD) 5 or more Highest Order ONE of the following medications: *Heparin 5000 units SQ TID (Preferred with Epidurals) *Enoxaparin/Lovenox 40 mg SQ daily (WT < 150 kg, CrCl > 30 mL/min) *Enoxaparin/Lovenox 30 mg SQ daily (WT < 150 kg, CrCl > 10-29 mL/min) *Enoxaparin/Lovenox 30 mg SQ BID (WT < 150 kg, CrCl > 30 mL/min) AND *Sequential Compression Device (SCD) Assessment and Plan Problem List: (1) Pneumonia ICD Codes: J18.9 - Pneumonia, unspecified organism Status: Acute Plan: start Zoysn q 6h,blood cultures follow labs add nebulizer treatment and cough med with codeine (2) Leukocytosis ICD Codes: D72.829 - Elevated white blood cell count, unspecified Status: Acute Plan: will follow labs (3) Sepsis ICD Codes: A41.9 - Sepsis, unspecified organism Status: Acute Plan: sepsis is based on criteria increase wbc,fever,increase pulse cultures pending (4) Pancreatic mass ICD Codes: K86.9 - Disease of pancreas, unspecified Status: Chronic Plan: will consult GI will be having appt at [facility] (5) Abdominal pain ICD Codes: R10.9 - Unspecified abdominal pain Plan: pain meds Assessment and Plan further plan as case develops Code Status full Discussed Condition With patient Physician Certification 2 Midnight Certification Type: Admission for Inpatient Services Order for Inpatient Services The services are ordered in accordance with Medicare regulations or non- Medicare payer requirements, as applicable. In the case of services not specified as inpatient-only, they are appropriately provided as inpatient services in accordance with the 2-midnight benchmark. Estimated LOS (days): 3 3 days is the estimated time the patient will need to remain in the hospital, assuming treatment plan goals are met and no additional complications. Post-Hospital Plan: Not yet determined Problem Qualifiers (1) Pneumonia: Qualified Codes: J18.9 - Pneumonia, unspecified organism (2) Leukocytosis: Qualified Codes: D72.829 - Elevated white blood cell count, unspecified (3) Sepsis: Qualified Codes: A41.9 - Sepsis, unspecified organism Stephan Mcclure MD May 11, 2017 21:45
[2017-05-11] MEDS ORDERED: ACETAMINOPHEN 325 MG TAB PO SCH (22:00)
[2017-05-11] MEDS: ACETAMINOPHEN 500 MG CPLT PO SCH (22:00)
[2017-05-11] MEDS ORDERED: fentaNYL 25 MCG/HR PATCH T-DERMAL SCH (22:00)
[2017-05-11 23:00] VITALS: PULSE 93
[2017-05-11] MEDS: guaiFENesin/CODEINE SYRUP 200 MG/20 MG/10 ML CUP PO PRN (23:05)
[2017-05-11] MEDS: MORPHINE SULFATE 2 MG/ML INJ IV PRN ×2 (23:05→23:12)
[2017-05-11] MEDS: 1/2 NS + KCL 20 MEQ INJ 1,000 ML IV SCH (23:06)
[2017-05-12] VITALS (7 sets, daily range): BP systolic 100–112; BP diastolic 54–73; PULSE 88–101; RESP 16–22; TEMP 96.2–98.8; O2SAT 93–96
[2017-05-12] MEDS: PIPERACIL-TAZO 3.375 GM PREMIX 50 ML IV SCH ×4 (00:25→17:22)
[2017-05-12] MEDS: MORPHINE SULFATE 2 MG/ML INJ IV PRN ×4 (03:35→20:25)
[2017-05-12] MEDS: guaiFENesin/CODEINE SYRUP 200 MG/20 MG/10 ML CUP PO PRN ×3 (05:21→17:21)
[2017-05-12] MEDS: ACETAMINOPHEN 500 MG CPLT PO SCH ×3 (05:21→22:09)
[2017-05-12 07:20] LABS: AUTOMATED NEUTROPHIL # 18.9 TH/MM3 (1.8-7.7); BASOPHIL # 0.1 TH/MM3 (0-0.2); BASOPHIL % 0.3 % (0.0-2.0); EOSINOPHIL # 0.1 TH/MM3 (0-0.4); EOSINOPHIL % 0.7 % (0.0-4.0); HEMATOCRIT 29.2 % (35.0-46.0); HEMOGLOBIN 10.3 GM/DL (11.6-15.3); LYMPH % 5.4 % (9.0-44.0); LYMPHOCYTE # 1.1 TH/MM3 (1.0-4.8); MEAN CELL VOLUME 85.4 FL (80.0-100.0); MEAN CORPUSCULAR HEMOGLOBIN 30.1 PG (27.0-34.0); MEAN CORPUSCULAR HGB CONC 35.3 % (32.0-36.0); MEAN PLATELET VOLUME 7.8 FL (7.0-11.0); MONO % 3.2 % (0.0-8.0); MONOCYTE # 0.7 TH/MM3 (0-0.9); NEUT % 90.4 % (16.0-70.0); PLATELET COUNT 580 TH/MM3 (150-450); RED BLOOD COUNT 3.42 MIL/MM3 (4.00-5.30); RED CELL DISTRIBUTION WIDTH 13.1 % (11.6-17.2); WHITE BLOOD COUNT 20.9 TH/MM3 (4.0-11.0)
[2017-05-12 08:02] LABS: ALBUMIN 1.9 GM/DL (3.4-5.0); ALKALINE PHOSPHATASE 248 U/L (45-117); ALT (GPT) 39 U/L (10-53); AST (GOT) 16 U/L (15-37); BICARBONATE 28.5 MEQ/L (21.0-32.0); BLOOD UREA NITROGEN 18 MG/DL (7-18); CALCIUM 8.1 MG/DL (8.5-10.1); CHLORIDE 100 MEQ/L (98-107); CREATININE 0.71 MG/DL (0.50-1.00); GLOMERULAR FILTRATION RATE 83 ML/MIN (>89); GLUCOSE,RANDOM 114 MG/DL (74-106); SODIUM (NA) 136 MEQ/L (136-145); TOTAL BILIRUBIN ADULT 1.5 MG/DL (0.2-1.0); TOTAL PROTEIN 6.8 GM/DL (6.4-8.2)
[2017-05-12] MEDS: MORPHINE SULFATE 15 MG CONTROLLED RELEASE TAB PO SCH ×2 (08:30→20:26)
[2017-05-12] MEDS: DOCUSATE SODIUM 50 MG/SENNA 8.6 MG TAB PO SCH ×2 (08:30→20:24)
[2017-05-12] MEDS: SODIUM CHLORIDE 0.9% FLUSH 10 ML FLUSH IV FLUSH SCH ×2 (08:30→20:26)
[2017-05-12] MEDS: 1/2 NS + KCL 20 MEQ INJ 1,000 ML IV SCH ×2 (09:55→22:10)
[2017-05-12] MEDS: ONDANSETRON HCL 4 MG/2 ML VIAL IVP PRN ×2 (11:07→17:22)
[2017-05-12] MEDS ORDERED: MAGNESIUM HYDROXIDE SUSP 30 ML CUP PO PRN (14:45)
[2017-05-12] MEDS: REMOVE OLD PATCH T-DERMAL SCH (15:00)
--- NOTE | 2017-05-12 15:03 | HHI.PR ---
Subjective Remarks Pt is a 67 y/o F recently diagnosed with pancreatic cancer. Imaging studies show head of the pancreas mass. Biopsy of CBD showed adenocarcinoma. Pt presented to [facility] with c/o worsening left sided abdominal pain. Pt denies cough or fever. Objective Vitals Vital Signs Date Time Temp Pulse Resp B/P (MAP) Pulse Ox O2 Delivery O2 Flow Rate FiO2 05/12/17 12:00 96.2 94 17 101/73 (82) 96 05/12/17 08:00 97.4 88 16 100/60 (73) 95 05/12/17 04:00 97.1 92 16 100/68 (79) 95 05/12/17 03:40 20 05/12/17 00:19 20 05/12/17 00:19 20 05/12/17 00:00 98.8 101 18 102/62 (75) 93 05/11/17 23:00 93 05/11/17 20:30 98.4 105 20 100/57 (71) 96 Room Air 05/11/17 16:23 94 Room Air 05/11/17 15:18 98.3 103 22 105/56 (72) 94 Room Air 05/12/17 05/12/17 05/13/17 15:00 23:00 07:00 Intake Total 50 ml Balance 50 ml IV Total 50 ml Result Diagram: 05/12/1728 05/12/1728 Imaging Last 24 hours Impressions Chest X-Ray 05/11/171626 Signed Impressions: Service Date/Time: Thursday, May 11, 2017 17:18 - CONCLUSION: Small right pleural effusion and right lung base consolidation may represent pneumonia. Mary Jane Garcia MD Abdomen/Pelvis CT 05/11/171626 Signed Impressions: Service Date/Time: Thursday, May 11, 2017 18:01 - CONCLUSION: 1. Right pleural effusion with consolidation right lung base, right middle lobe and lingula may represent pneumonia. 2. There are gas bubbles with fluid collections in the right perihepatic space in addition to subcapsular fluid collection all of which could be related to placement of transhepatic percutaneous biliary external/internal drain. 3. There are cystic masses in the body and head of the pancreas and a solid mass may be present in the head of the pancreas with slight dilatation of the pancreatic duct. Mary Jane Garcia MD Objective Remarks GENERAL: This is a well-nourished, well-developed patient, in no apparent distress. CARDIOVASCULAR: Regular rate and rhythm without murmurs, gallops, or rubs. RESPIRATORY: Clear to auscultation. Breath sounds equal bilaterally. No wheezes , rales, or rhonchi. GASTROINTESTINAL: Abdomen soft, non-tender, nondistended. Normal active bowel sounds some possible induration around site of biliary drain MUSCULOSKELETAL: tender at RUQ near biliary drain, +BS x 4 NEURO: Alert & Oriented x4 to person, place, time, situation. Moves all ext x4 A/P Problem List: (1) Pneumonia ICD Codes: J18.9 - Pneumonia, unspecified organism Status: Acute Plan: - unclear if pt has pneumonia - Pt did NOT cough during my visit (05/12) - There is NO fever - pt's WBC 34.6 (05/11), 20.9 (05/12) - continue zosyn - duonebs prn - robitussing with codeine prn - I do NOT believe that pt is septic at this time (2) Pancreatic mass ICD Codes: K86.9 - Disease of pancreas, unspecified Status: Chronic Plan: - CT abd (05/12) --> Head of Pancrease Mass - pathology from CBD Bx (04/29/17) --> adenocarcinoma - Pt/family in process of seeking referral at the [facility] - Case d/w Dr. Christopher Cedeno. He will consult - Duragesic increased to 50mcg daily - Pt recently started on BID morphine 15mg daily, I would prefer to eliminate this if I can get her pain controlled with Duragesic - single agent. - prn morphine/lortab - DVT prophylaxis (3) Abdominal pain ICD Codes: R10.9 - Unspecified abdominal pain Status: Acute Plan: - recent placement of biliary drain 04/2017 - case d/w IR, Dr. Francois - possibly some residual hematoma related to procedure. - Consult placed to IR - on palpation, possibly some induration around biliary drain site - will request General Surgery Consult, r/o abscess (4) Pleural effusion on right ICD Codes: J90 - Pleural effusion, not elsewhere classified Status: Acute Plan: - obtain thoracentesis, diagnostic and therapeutic - obtain pleural fluid Problem Qualifiers (1) Pneumonia: Qualified Codes: J18.9 - Pneumonia, unspecified organism (2) Abdominal pain: Qualified Codes: R10.11 - Right upper quadrant pain Margarito Jackson DO May 12, 2017 15:03
--- NOTE | 2017-05-12 15:18 | PD.CONS ---
HPI History of Present Illness This is a 67 year old female with percutaneous biliary drain who presented with abd pain around drain site, bloody leakage from drain site. She is known to us from previous admission when she presented with common bile duct obstruction, had EUS on 04/[address] Warren which found pancreas head mass and pancreas tail mass, dilated CBD with int/ext drain. She is s/p biliary drain exchange and stent placement to [facility] on 05/01. 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 (Saray Khan) PFSH Past Medical History bronchiectasis Past Surgical History cholecystectomy carpal tunnel release bilat bilat tubal ligation c section x 2 colonoscopy and ERCP (Saray Khan) Coded Allergies: hydromorphone (Verified Allergy, Severe, Itching, 05/11/17) Family History DM Social History rare ETOH no tobacco or illicit drugs (Saray Khan) Review of Systems Constitutional: DENIES: Chills Eyes: DENIES: Blurred vision Ears, nose, mouth, throat: DENIES: Hearing loss Respiratory: DENIES: Cough Cardiovascular: DENIES: Chest pain Gastrointestinal: COMPLAINS OF: Abdominal pain (drain site), DENIES: Nausea, Vomiting Genitourinary: DENIES: Hematuria Musculoskeletal: DENIES: Joint Swelling Integumentary: COMPLAINS OF: Jaundice Hematologic/lymphatic: DENIES: Bruising Neurologic: DENIES: Abnormal gait Psychiatric: DENIES: Confusion (Saray Khan) GI Exam Vitals I&O Vital Signs Date Time Temp Pulse Resp B/P (MAP) Pulse Ox O2 Delivery O2 Flow Rate FiO2 05/12/17 12:00 96.2 94 17 101/73 (82) 96 05/12/17 08:00 97.4 88 16 100/60 (73) 95 05/12/17 04:00 97.1 92 16 100/68 (79) 95 05/12/17 03:40 20 05/12/17 00:19 20 05/12/17 00:19 20 05/12/17 00:00 98.8 101 18 102/62 (75) 93 05/11/17 23:00 93 05/11/17 20:30 98.4 105 20 100/57 (71) 96 Room Air 05/11/17 16:23 94 Room Air 05/11/17 15:18 98.3 103 22 105/56 (72) 94 Room Air I/O 05/11/17 05/11/17 05/11/17 05/12/17 05/12/17 05/12/17 07:00 15:00 23:00 07:00 15:00 23:00 Intake Total 720 ml 50 ml Output Total 800 ml Balance -80 ml 50 ml Intake Oral 720 ml IV Total 50 ml Output Urine Total 450 ml Drainage Total 350 ml # Bowel Movements 0 Imaging Last Impressions Chest X-Ray 05/11/177 Signed Impressions: Service Date/Time: Thursday, May 11, 2017 17:18 - CONCLUSION: Small right pleural effusion and right lung base consolidation may represent pneumonia. Mary Jane Garcia MD Abdomen/Pelvis CT 05/11/171626 Signed Impressions: Service Date/Time: Thursday, May 11, 2017 18:01 - CONCLUSION: 1. Right pleural effusion with consolidation right lung base, right middle lobe and lingula may represent pneumonia. 2. There are gas bubbles with fluid collections in the right perihepatic space in addition to subcapsular fluid collection all of which could be related to placement of transhepatic percutaneous biliary external/internal drain. 3. There are cystic masses in the body and head of the pancreas and a solid mass may be present in the head of the pancreas with slight dilatation of the pancreatic duct. Mary Jane Garcia MD Laboratory Test 05/11/17 16:37 05/11/17 18:57 05/12/17 06:28 White Blood Count 34.6 TH/MM3 20.9 TH/MM3 Red Blood Count 3.96 MIL/MM3 3.42 MIL/MM3 Hemoglobin 11.2 GM/DL 10.3 GM/DL Hematocrit 33.7 % 29.2 % Mean Corpuscular Volume 85.1 FL 85.4 FL Mean Corpuscular Hemoglobin 28.4 PG 30.1 PG Mean Corpuscular Hemoglobin Concent 33.4 % 35.3 % Red Cell Distribution Width 13.2 % 13.1 % Platelet Count 662 TH/MM3 580 TH/MM3 Mean Platelet Volume 8.1 FL 7.8 FL Neutrophils (%) (Auto) 93.4 % 90.4 % Lymphocytes (%) (Auto) 3.1 % 5.4 % Monocytes (%) (Auto) 3.0 % 3.2 % Eosinophils (%) (Auto) 0.3 % 0.7 % Basophils (%) (Auto) 0.2 % 0.3 % Neutrophils # (Auto) 32.3 TH/MM3 18.9 TH/MM3 Lymphocytes # (Auto) 1.1 TH/MM3 1.1 TH/MM3 Monocytes # (Auto) 1.0 TH/MM3 0.7 TH/MM3 Eosinophils # (Auto) 0.1 TH/MM3 0.1 TH/MM3 Basophils # (Auto) 0.1 TH/MM3 0.1 TH/MM3 CBC Comment AUTO DIFF DIFF FINAL Differential Total Cells Counted 100 Neutrophils % (Manual) 93 % Band Neutrophils % 2 % Lymphocytes % 3 % Monocytes % 2 % Neutrophils # (Manual) 32.9 TH/MM3 Differential Comment FINAL DIFF MANUAL Dohle Bodies PRESENT Platelet Estimate HIGH Platelet Morphology Comment NORMAL Blood Urea Nitrogen 33 MG/DL 18 MG/DL Creatinine 0.97 MG/DL 0.71 MG/DL Random Glucose 109 MG/DL 114 MG/DL Total Protein 8.1 GM/DL 6.8 GM/DL Albumin 2.3 GM/DL 1.9 GM/DL Calcium Level 8.6 MG/DL 8.1 MG/DL Alkaline Phosphatase 290 U/L 248 U/L Aspartate Amino Transf (AST/SGOT) 14 U/L 16 U/L Alanine Aminotransferase (ALT/SGPT) 56 U/L 39 U/L Total Bilirubin 2.4 MG/DL 1.5 MG/DL Sodium Level 131 MEQ/L 136 MEQ/L Potassium Level 3.1 MEQ/L 3.1 MEQ/L Chloride Level 93 MEQ/L 100 MEQ/L Carbon Dioxide Level 29.0 MEQ/L 28.5 MEQ/L Anion Gap 9 MEQ/L 8 MEQ/L Estimat Glomerular Filtration Rate 58 ML/MIN 83 ML/MIN Lactic Acid Level 1.4 mmol/L Lipase 50 U/L Urine Color YELLOW Urine Turbidity CLEAR Urine pH 5.5 Urine Specific [place] 1.047 Urine Protein 30 mg/dL Urine Glucose (UA) NEG mg/dL Urine Ketones NEG mg/dL Urine Occult Blood NEG Urine Nitrite NEG Urine Bilirubin NEG Urine Urobilinogen LESS THAN 2.0 MG/DL Urine Leukocyte Esterase NEG Urine RBC LESS THAN 1 /hpf Urine WBC 2 /hpf Urine Squamous Epithelial Cells <1 /hpf Microscopic Urinalysis Comment CULT NOT INDICATED Lactate Dehydrogenase 182 U/L Date/Time Source Procedure Growth Status 05/11/17 19:16 Blood Peripheral Aerobic Blood Culture - Preliminary NO GROWTH IN 1 DAY Resulted 05/11/17 19:16 Blood Peripheral Anaerobic Blood Culture - Preliminary NO GROWTH IN 1 DAY Resulted Physical Examination HEENT: PERRL; normocephalic; atraumatic; +icterus CHEST: CTA CARDIAC: RRR ABDOMEN: Soft, nondistended; no hepatosplenomegaly; bowel sounds are present in all four quadrants. biliary drain right side with moderate bloody drainage on 4x4s, extreme TTP around drain EXTREMITIES: No clubbing, cyanosis, or edema. SKIN: Normal; no rash; +jaundice. WOOD FLOOR LAYER: No focal deficits; alert and oriented times three. (Saray Khan) Assessment and Plan Plan ASSESSMENT - abd pain - TTP around site of biliar drain, moderate bloody drainage/leakage on bandages. IR consult pending. GS consult pending to r/o abscess - pancreatic mass- s/p EUS found mass pancreatic tail and head, CBD bx adenocarcinoma oncology consult pending pt was to f/u with [facility] - elevated LFTs - likely 2/2 above. LFTs have improved overall since drain placement. PLAN - await IR eval - await oncology consult - await GS consult - monitor labs - supportive care Pt seen by myself and Dr Hernandez and this this note written on his behalf (Saray Khan) Physician Comments Seen and examined with ANASTACIA, new diagnosis of cholangiocarcinoma. Referral to [facility] in progress for cancer treatment. Admitted with pain and infection at the PTC catheter site. Evaluated by IR and catheter adjusted. Pain and wbc improved. At some point the PTC needs to be changed to an internal stent preferably after decision is made regarding final treatment. Monitor labs, antibiotics. GI will sign off, reconsult as needed. Thank you (Celestine Briggs MD) Saray Khan May 12, 2017 15:18 Celestine Briggs MD May 12, 2017 18:11
[2017-05-12] MEDS: fentaNYL 50 MCG/HR PATCH T-DERMAL SCH (15:38)
[2017-05-12] MEDS: MAGNESIUM HYDROXIDE SUSP 30 ML CUP PO PRN (15:39)
[2017-05-12] MEDS: RESP: ALBUTEROL 2.5 MG/IPRATROPIUM 0.5 MG NEB (PRN) NEB (16:04)
--- NOTE | 2017-05-12 16:44 | PD.RAD ---
Radiology Note 67y/o with reciently diagnosed pancreatic CA. Pt. underwent PTHD and biopsy due to failed ercp PTHD complicated by what appears to be a subcapsular hematoma of the liver and right sided pleural effusion. Pt diagnosed with pneumonia possibly secondary to the right effusion. Pt examined secondary to pain and drainage at the tube insertion site. Exam. tube insertion site looks good.pt has blood tinged drainage from around the tube likely from the subcapsular hematoma decompressing along the tract. Presently being managed with an ABD. A/P 1. continue ABD dressing around the tube site 2. Right thoracentesis in am to send fluid for C&S 3. Pain currently controlled by primary service. 4. Tube will need to stay in place due to biliary obstruction. Adam Rodriguez MD May 12, 2017 16:44
--- NOTE | 2017-05-12 16:45 | EKG ---
Date Performed: 05/11/2017 Time Performed: 17:29:57 PTAGE: 67 years EKG: SINUS TACHYCARDIA ABNORMAL RHYTHM ECG NO PREVIOUS TRACING DOCTOR: Jose Angel Rucker Interpretating Date/Time 05/12/2017 16:44:56
[2017-05-12] MEDS: POTASSIUM CHLORIDE 20 MEQ CONTROLLED RELEASE TAB PO SCH ×2 (17:22→20:26)
[2017-05-13] VITALS (9 sets, daily range): BP systolic 92–111; BP diastolic 51–73; PULSE 77–98; RESP 16–22; TEMP 96.2–98; O2SAT 91–97
[2017-05-13] MEDS: ONDANSETRON HCL 4 MG/2 ML VIAL IVP PRN ×2 (00:43→06:39)
[2017-05-13] MEDS: guaiFENesin/CODEINE SYRUP 200 MG/20 MG/10 ML CUP PO PRN ×4 (00:44→20:12)
[2017-05-13] MEDS: PIPERACIL-TAZO 3.375 GM PREMIX 50 ML IV SCH ×5 (00:49→23:17)
[2017-05-13] MEDS: MORPHINE SULFATE 2 MG/ML INJ IV PRN ×7 (00:49→23:16)
[2017-05-13] MEDS: ACETAMINOPHEN 500 MG CPLT PO SCH ×3 (06:39→20:12)
[2017-05-13 07:09] LABS: AUTOMATED NEUTROPHIL # 10.3 TH/MM3 (1.8-7.7); BASOPHIL # 0.1 TH/MM3 (0-0.2); BASOPHIL % 0.5 % (0.0-2.0); EOSINOPHIL # 0.2 TH/MM3 (0-0.4); EOSINOPHIL % 1.5 % (0.0-4.0); HEMATOCRIT 30.6 % (35.0-46.0); HEMOGLOBIN 10.1 GM/DL (11.6-15.3); LYMPH % 9.8 % (9.0-44.0); LYMPHOCYTE # 1.2 TH/MM3 (1.0-4.8); MEAN CELL VOLUME 85.7 FL (80.0-100.0); MEAN CORPUSCULAR HEMOGLOBIN 28.4 PG (27.0-34.0); MEAN CORPUSCULAR HGB CONC 33.1 % (32.0-36.0); MEAN PLATELET VOLUME 7.2 FL (7.0-11.0); MONO % 6.4 % (0.0-8.0); MONOCYTE # 0.8 TH/MM3 (0-0.9); NEUT % 81.8 % (16.0-70.0); PLATELET COUNT 644 TH/MM3 (150-450); RED BLOOD COUNT 3.57 MIL/MM3 (4.00-5.30); WHITE BLOOD COUNT 12.6 TH/MM3 (4.0-11.0)
[2017-05-13 07:17] LABS: INTERNATIONAL NORMALIZED RATIO 1.7 RATIO; PROTHROMBIN TIME - PATIENT 17.2 SEC (9.8-11.6)
[2017-05-13 07:39] LABS: CALCIUM 8.4 MG/DL (8.5-10.1); CREATININE 0.57 MG/DL (0.50-1.00); MAGNESIUM 2.1 MG/DL (1.5-2.5)
[2017-05-13] MEDS: DOCUSATE SODIUM 50 MG/SENNA 8.6 MG TAB PO SCH ×2 (08:07→20:13)
[2017-05-13] MEDS: MORPHINE SULFATE 15 MG CONTROLLED RELEASE TAB PO SCH ×2 (08:07→20:13)
[2017-05-13] MEDS: SODIUM CHLORIDE 0.9% FLUSH 10 ML FLUSH IV FLUSH SCH ×2 (08:08→20:13)
--- NOTE | 2017-05-13 10:09 | RADRPT ---
EXAM DATE/TIME: 05/13/2017 09:49 [facility] COMPARISON: CHEST SINGLE AP, May 02, 2017, 10:31. INDICATIONS : Post right thoracentesis MEDICAL HISTORY : None. SURGICAL HISTORY : Cholecystectomy. ENCOUNTER: Subsequent ACUITY: 4 - 6 days PAIN SCORE: 0/10 LOCATION: Bilateral chest FINDINGS: The cardiac silhouette is enlarged in transverse diameter. There is subsegmental atelectasis in the r ight base. Following thoracentesis no pneumothorax is identified. There is significant reduction in t he previously seen effusion. CONCLUSION: 1. No evidence of pneumothorax following thoracentesis. Dionte Francois MD on May 13, 2017 at 10:06 Board Certified Radiologist. This report was verified electronically.
[2017-05-13 10:50] LABS: TOTAL PROTEIN,PLEURAL FLUID 4.3 GM/DL
[2017-05-13 11:04] LABS: PLEURAL FLUID POLYS (SEGS) 75 %; PLEURAL FLUID RBC 1165 /MM3 (0-0); PLEURAL FLUID WBC 885 /MM3 (0-10)
[2017-05-13 11:05] LABS: PLEURAL FLUID LYMPHS 25 %
--- NOTE | 2017-05-13 13:13 | RADRPT ---
EXAM DATE/TIME: 05/13/2017 08:38 [facility] COMPARISON: No previous studies available for comparison. INDICATIONS : Right pleural effusion. MEDICAL HISTORY : Chronic obstructive pulmonary disease. Pancreatic cancer. SURGICAL HISTORY : Cholecystectomy section. Carpel tunnel. Sinus surgery. Biliary drain. ENCOUNTER: Initial ACUITY: 2 days PAIN SCORE: 0/10 LOCATION: Right chest FLUID: Total volume of 550 cc of dark yellow fluid was removed. Fluid was sent to lab for ordered studies. TECHNIQUE: 1. Ultrasound guidance for thoracentesis. 2. Thoracentesis. The risks, benefits, and alternatives to ultrasound guided thoracentesis were explained to the patien t in lay simple terms, including the risk of bleeding and infection. Written and verbal informed con sent was obtained. Appropriate area for thoracentesis was marked under ultrasound guidance with the patient in the uprig ht position. Overlying skin was prepped and draped in the usual sterile fashion and with local anest hetic, a dermatotomy was made with an 11 blade scalpel. A 6 Scottish thoracentesis catheter was placed in the pleural space and fluid was removed. Catheter was then removed and a sterile dressing applie d. There were no immediate complications. The patient tolerated the procedure well and the left the ultrasound suite in stable condition. Chest radiograph is to be obtained. CONCLUSION: Uncomplicated ultrasound guided right thoracentesis. Brenden Sanchez MD on May 13, 2017 at 13:10 Board Certified Radiologist. This report was verified electronically.
[2017-05-13] MEDS: 1/2 NS + KCL 20 MEQ INJ 1,000 ML IV SCH ×2 (14:30→20:18)
--- NOTE | 2017-05-13 16:48 | HHI.PR ---
Subjective Remarks No new complaints. Pt is less painful today. Objective Vitals Vital Signs Date Time Temp Pulse Resp B/P (MAP) Pulse Ox O2 Delivery O2 Flow Rate FiO2 05/13/17 12:00 96.4 84 17 100/51 (67) 95 05/13/17 10:20 81 18 108/67 (81) 92 05/13/17 10:05 98.0 83 18 92/63 (73) 91 05/13/17 08:00 96.6 89 16 98/53 (68) 95 05/13/17 04:00 96.8 90 22 111/73 (86) 95 05/13/17 00:49 96.4 98 22 101/59 (73) 95 05/13/17 00:19 91 05/12/17 20:00 96 05/12/17 20:00 97.8 100 22 112/56 (74) 96 Result Diagram: 05/13/17 0642 05/13/17 0642 Imaging Last 24 hours Impressions Chest X-Ray 05/11/177 Signed Impressions: Service Date/Time: Thursday, May 11, 2017 17:18 - CONCLUSION: Small right pleural effusion and right lung base consolidation may represent pneumonia. Mary Jane Garcia MD Abdomen/Pelvis CT 05/11/177 Signed Impressions: Service Date/Time: Thursday, May 11, 2017 18:01 - CONCLUSION: 1. Right pleural effusion with consolidation right lung base, right middle lobe and lingula may represent pneumonia. 2. There are gas bubbles with fluid collections in the right perihepatic space in addition to subcapsular fluid collection all of which could be related to placement of transhepatic percutaneous biliary external/internal drain. 3. There are cystic masses in the body and head of the pancreas and a solid mass may be present in the head of the pancreas with slight dilatation of the pancreatic duct. Mary Jane Garcia MD Objective Remarks GENERAL: This is a well-nourished, well-developed patient, in no apparent distress. CARDIOVASCULAR: Regular rate and rhythm without murmurs, gallops, or rubs. RESPIRATORY: Clear to auscultation. Breath sounds equal bilaterally. No wheezes , rales, or rhonchi. GASTROINTESTINAL: Abdomen soft, non-tender, nondistended. Normal active bowel sounds some possible induration around site of biliary drain MUSCULOSKELETAL: tender at RUQ near biliary drain, +BS x 4 NEURO: Alert & Oriented x4 to person, place, time, situation. Moves all ext x4 A/P Problem List: (1) Pneumonia ICD Codes: J18.9 - Pneumonia, unspecified organism Status: Acute Plan: - unclear if pt has pneumonia - Pt did NOT cough during my visit (05/12) - There is NO fever - pt's WBC 34.6 (05/11), 20.9 (05/12), 12.6 (05/13) - continue zosyn - duonebs prn - robitussing with codeine prn - I do NOT believe that pt is septic at this time - thoracentesis, right thorax (05/13) 550ml fluid, likely exudate - pleural fluid gram stain (05/13) no WBC, no organisms (2) Pancreatic mass ICD Codes: K86.9 - Disease of pancreas, unspecified Status: Chronic Plan: - cogmt with Oncology - CT abd (05/12) --> Head of Pancrease Mass - pathology from CBD Bx (04/29/17) --> adenocarcinoma - Pt/family in process of seeking referral at the [facility] - Case d/w Dr. Christopher Cedeno. He will consult - Duragesic increased to 50mcg daily - Pt recently started on BID morphine 15mg daily, I would prefer to eliminate this if I can get her pain controlled with Duragesic - single agent. - prn morphine/lortab - DVT prophylaxis (3) Abdominal pain ICD Codes: R10.9 - Unspecified abdominal pain Status: Acute Plan: - recent placement of biliary drain 04/2017 - case d/w IR, Dr. Francois - possibly some residual hematoma related to procedure. - Consult placed to IR - on palpation, possibly some induration around biliary drain site - will request General Surgery Consult, r/o abscess (4) Pleural effusion on right ICD Codes: J90 - Pleural effusion, not elsewhere classified Status: Acute Plan: - see above Problem Qualifiers (1) Pneumonia: Qualified Codes: J18.9 - Pneumonia, unspecified organism (2) Abdominal pain: Qualified Codes: R10.11 - Right upper quadrant pain Margarito Jackson DO May 13, 2017 16:48
[2017-05-13] MEDS: SODIUM CHLORIDE 0.9% FLUSH 10 ML FLUSH IV FLUSH PRN (16:54)
--- NOTE | 2017-05-13 21:40 | HHI.PR ---
Subjective Subjective Notes The patient underwent thoracentesis today with withdrawal of greater than 500 mL 's of dark yellow fluid. She feels much better after the thoracentesis. She has no complaints of abdominal pain at the time of examination. Overall she feels much better. She expresses no other complaints except a concern that she be transferred to the [facility] care as soon as possible. Objective Vitals/I&O Vital Signs Date Time Temp Pulse Resp B/P (MAP) Pulse Ox O2 Delivery O2 Flow Rate FiO2 05/13/17 20:00 96.2 82 16 102/55 (71) 95 05/11/17 20:30 Room Air Labs Laboratory Tests Test 05/13/17 06:42 05/13/17 09:45 White Blood Count 12.6 Red Blood Count 3.57 Hemoglobin 10.1 Hematocrit 30.6 Mean Corpuscular Volume 85.7 Mean Corpuscular Hemoglobin 28.4 Mean Corpuscular Hemoglobin Concent 33.1 Red Cell Distribution Width 13.0 Platelet Count 644 Mean Platelet Volume 7.2 Neutrophils (%) (Auto) 81.8 Lymphocytes (%) (Auto) 9.8 Monocytes (%) (Auto) 6.4 Eosinophils (%) (Auto) 1.5 Basophils (%) (Auto) 0.5 Neutrophils # (Auto) 10.3 Lymphocytes # (Auto) 1.2 Monocytes # (Auto) 0.8 Eosinophils # (Auto) 0.2 Basophils # (Auto) 0.1 CBC Comment DIFF FINAL Differential Comment Prothrombin Time 17.2 Prothromb Time International Ratio 1.7 Blood Urea Nitrogen 9 Creatinine 0.57 Random Glucose 86 Calcium Level 8.4 Magnesium Level 2.1 Sodium Level 139 Potassium Level 4.6 Chloride Level 104 Carbon Dioxide Level 28.0 Anion Gap 7 Estimat Glomerular Filtration Rate 106 Pleural Fluid pH 8.0 Pleural Fluid WBC 885 Pleural Fluid RBC 1165 Pleural Fluid Neutrophils 75 Pleural Fluid Lymphocytes 25 Pleural Fluid Comment Pleural Fluid Total Protein 4.3 Pleural Fluid LDH 184 Pleural Fluid Glucose 87 Date/Time Source Procedure Growth Status 05/11/17 19:16 Blood Peripheral Aerobic Blood Culture - Preliminary NO GROWTH IN 2 DAYS Resulted 05/11/17 19:16 Blood Peripheral Anaerobic Blood Culture - Preliminary NO GROWTH IN 2 DAYS Resulted 05/13/17 09:45 Fluid Pleural Fluid Fungal Smear Pending Received 05/13/17 09:45 Fluid Pleural Fluid Fungal Culture Pending Received Radiology Last 72 hours Impressions Thoracentesis Ultrasound 05/13/17 0000 Signed Impressions: Service Date/Time: Saturday, May 13, 2017 08:38 - CONCLUSION: Uncomplicated ultrasound guided right thoracentesis. Brenden Sanchez MD Chest X-Ray 05/13/17 0000 Signed Impressions: Service Date/Time: Saturday, May 13, 2017 09:49 - CONCLUSION: 1. No evidence of pneumothorax following thoracentesis. Dionte Francois MD Chest X-Ray 05/11/171626 Signed Impressions: Service Date/Time: Thursday, May 11, 2017 17:18 - CONCLUSION: Small right pleural effusion and right lung base consolidation may represent pneumonia. Mary Jane Garcia MD Abdomen/Pelvis CT 05/11/171626 Signed Impressions: Service Date/Time: Thursday, May 11, 2017 18:01 - CONCLUSION: 1. Right pleural effusion with consolidation right lung base, right middle lobe and lingula may represent pneumonia. 2. There are gas bubbles with fluid collections in the right perihepatic space in addition to subcapsular fluid collection all of which could be related to placement of transhepatic percutaneous biliary external/internal drain. 3. There are cystic masses in the body and head of the pancreas and a solid mass may be present in the head of the pancreas with slight dilatation of the pancreatic duct. Mary Jane Garcia MD Cardiovascular: Regular Lungs: Clear Abdomen: Non-distended, Non-tender, BS normal Extremities: No edema Narrative Exam The biliary drain remains open and is draining clear bile A/P Assessment and Plan Impression: 67-year-old lady with carcinoma of the pancreas with biliary obstruction, status post placement of an external/internal biliary stent with subsequent development of subcapsular fluid as well as right pleural effusion. She is now status post percutaneous drainage of the pleural effusion with relief of symptoms. Plan: There is no indication for surgical intervention at the present. I will aid is much as I can to have her referred to the [facility] from here. Cody Cardenas MD May 13, 2017 21:40
[2017-05-13] MEDS: RESP: ALBUTEROL 2.5 MG/IPRATROPIUM 0.5 MG NEB (PRN) NEB (22:03)
[2017-05-14] VITALS (7 sets, daily range): BP systolic 91–126; BP diastolic 50–73; PULSE 76–95; RESP 16–19; TEMP 96–98; O2SAT 95–98
[2017-05-14] MEDS: guaiFENesin/CODEINE SYRUP 200 MG/20 MG/10 ML CUP PO PRN (02:17)
[2017-05-14] MEDS: MORPHINE SULFATE 2 MG/ML INJ IV PRN ×6 (02:17→23:06)
[2017-05-14] MEDS: ACETAMINOPHEN 500 MG CPLT PO SCH ×3 (04:37→21:25)
[2017-05-14] MEDS: PIPERACIL-TAZO 3.375 GM PREMIX 50 ML IV SCH ×4 (04:37→23:42)
[2017-05-14] MEDS: 1/2 NS + KCL 20 MEQ INJ 1,000 ML IV SCH ×2 (05:09→17:44)
--- NOTE | 2017-05-14 06:41 | MB ---
cc: ZACHARY HARRIS DATE OF CONSULTATION May 12, 2017 REASON FOR CONSULTATION Patient with a diagnosis of pancreatic adenocarcinoma. HISTORY OF PRESENT ILLNESS This is a 67-year-old female who was recently diagnosed with pancreatic adenocarcinoma. She had presented with abdominal discomfort and jaundice. She was found to have biliary obstruction. She had attempt to place a biliary stent which was unsuccessful and subsequently she had a biliary tube placed by Dr. Aguirre. She has also been seen by Gastroenterology. She has had an endoscopic ultrasound and the biopsy had confirmed an invasive moderately differentiated adenocarcinoma. She has had a CT scan of her abdomen and pelvis which showed right-sided pleural effusion, consolidation of right lung base, right middle lobe and lingula. There were gas bubbles and fluid collection at the right perihepatic space in addition to subcapsular fluid collection. There were cystic masses in the body and head of the pancreas and a solid mass was also seen in the head of the pancreas with dilatation of the pancreatic duct. Oncology has been consulted to make further recommendations. The patient appears to be in considerable pain at this time she as a biliary tube in place and the pain is around the biliary tube area. She asked numerous questions regarding her diagnosis. Her daughter is present during this conversation and the daughter is insisting that the patient be sent to [place] for further evaluation. she does not want to complete any further workup here at [place] [facility] including evaluation by Surgery. She states that she would like to have her mother be kept comfortable and treat the issues relating to the biliary tube and abdominal pain and then be discharged so they can pursue further treatment at [place]. According to Dr. Francois there is a residual hematoma possibly related to the procedure. The biliary drain was placed in April. REVIEW OF SYSTEMS A comprehensive review of systems was completed which is negative except as described in the HPI. PAST MEDICAL HISTORY 1. Pancreatic adenocarcinoma. 2. Lung nodule. 3. Degenerative joint disease. 4. Gastroesophageal reflux disease. 5. COPD. PAST SURGICAL HISTORY 1. Gallbladder surgery. 2. Biliary drain placement. 3. Endoscopic ultrasound. MEDICATIONS 1. Colace. 1. Oxycodone. 2. Duragesic. 3. Tessalon. 4. Ventolin HFA. ALLERGIES HYDROMORPHONE. FAMILY HISTORY Reviewed and noncontributory to this admission. SOCIAL HISTORY She does not smoke cigarettes, does not drink alcohol. No illicit drug use. PHYSICAL EXAMINATION VITAL SIGNS: Blood pressure is 112/56, pulse is in the 90s, temperature is 97.8, respiratory rate is 18, O2 sats are 96% on room air. GENERAL: A well-developed, elderly female in mild distress. HEENT: Pupils are equal, round, react to light. No thrush. No oral lesions. NECK: Supple. No JVD, no bruits, no lymphadenopathy. CHEST: Clear to auscultation bilaterally. CARDIAC: S1-S2. Regular rate and rhythm. ABDOMEN: Abdomen is tender. At the biliary drain there is induration in a circular manner around the drains and it is exquisitely tender. There is clear discharge from the drain. EXTREMITIES: Without edema, erythema or cyanosis. SKIN: Without any petechiae, lesion or bruises. NEUROLOGIC: No focal deficits. PSYCHIATRIC: Mood and affect is appropriate. LABORATORY DATA WBC is 20.9, hemoglobin 10.3, MCV is 85, platelet count 580. Sodium 139, creatinine 0.57, GFR 106, random glucose 86, calcium is 8.4, magnesium 2.1. Coags - PT is 17.2, INR is 1.7. IMAGING STUDIES CT of the abdomen and pelvis was reviewed. ASSESSMENT AND PLAN This is a 67-year-old female with a recent diagnosis of pancreatic adenocarcinoma. She had presented with biliary obstruction. She has undergone biliary drain placement. Oncology has been consulted to make further recommendations. 1. Pancreatic adenocarcinoma: I have reviewed the results of the endoscopic ultrasound. She has a 3-cm x 2.6-cm mass in the head of the pancreas and there is also a 1.6-cm mass in the tail of the pancreas. The common bile duct was dilated with an internal/external drain. This pancreatic cancer appears to be localized and appears to be resectable. This patient needs evaluation by Surgical Oncology. However, the patient has asked me to defer this as she would like to go to [facility] and discuss with the surgeon there. I explained to her that pancreatic adenocarcinoma if resectable is treated with surgery. Sometimes adjuvant chemotherapy is also given. She will need to have an MRI of the abdomen done to assess for any regional lymphadenopathy. Regional adenopathy was not apparent on the CT scan or the endoscopic ultrasound. At this time she is having significant amount of pain around her biliary drain and there is some induration and concern for abscess. I would recommend evaluation by Surgery. She also has a pleural effusion which needs to be drained and we need to make sure that this is not malignant. The patient's daughter is stating that she is trying to call [facility] to schedule an appointment with them as soon as possible. I would hold off on ordering any imaging at this time. The patient and her daughter have requested that I do not order any further workup and they would like to have all workup completed at [facility]. We will continue with pain control, we will rule out underlying abscess at the biliary drain. We will ask for pleural thoracentesis. I will follow up on the pathology report. The case was discussed with Dr. Jackson. Thank you for allowing me to participate in the care of this patient. I will continue to follow this patient along. MD ODILIA Barrett/CAMRYN /1:43 AM /6:00 AM ISABEL
[2017-05-14] MEDS: RESP: ALBUTEROL 2.5 MG/IPRATROPIUM 0.5 MG NEB (PRN) NEB ×2 (07:57→20:23)
[2017-05-14] MEDS: DOCUSATE SODIUM 50 MG/SENNA 8.6 MG TAB PO SCH ×2 (08:19→21:00)
[2017-05-14] MEDS: MORPHINE SULFATE 15 MG CONTROLLED RELEASE TAB PO SCH ×2 (08:19→21:25)
[2017-05-14] MEDS: SODIUM CHLORIDE 0.9% FLUSH 10 ML FLUSH IV FLUSH PRN ×2 (10:15→15:24)
[2017-05-14] MEDS: SODIUM CHLORIDE 0.9% FLUSH 10 ML FLUSH IV FLUSH SCH ×2 (10:15→21:00)
[2017-05-14] MEDS: ONDANSETRON HCL 4 MG/2 ML VIAL IVP PRN ×2 (13:14→23:12)
[2017-05-14 13:25] LABS: AMYLASE BODY FLUID 35 U/L; AMYLASE BODY FLUID TYPE PLEURAL
--- NOTE | 2017-05-14 14:18 | PD.RAD ---
Radiology Note 67 y/o with newly diagnosed pancreatic CA. AFVSS with complaints of abdominal pain. PT presently has an internal stent with a biliary drain in the proximal CBD. Procedures. 1. Pt underwent PTHD 04/29/17 secondary to biliary ductal dilation and failed ERCP. 2. PT returned 05/01/17 for biopsy and internalization. At that time a plastic internal biliary stent was place in the CBD and across the ampulla. An 8 swiss external drain was left in the proximal CBD with the goal to cap this and ensure the patient tolerated internal drainage. Unfortunately, the biopsy was complicated by a subcapsular hemorrhage as document by CT scan 05/11/17. A/P. 1. Due to the subcapsular hematoma the decision was made to leave the external biliary drain in place and decompress the biliary system until a tract forms and the subcapsular hematoma at least partially resolves as this would likely form a biloma due to the potential space. 2. Plan is to remove the drain 05/18 or 05/19 as it will have been in place for approximately 2 weeks. Adam Rodriguez MD May 14, 2017 14:18
[2017-05-14 18:19] LABS: AUTOMATED NEUTROPHIL # 11.3 TH/MM3 (1.8-7.7); BASOPHIL # 0.1 TH/MM3 (0-0.2); BASOPHIL % 0.6 % (0.0-2.0); EOSINOPHIL # 0.2 TH/MM3 (0-0.4); EOSINOPHIL % 1.2 % (0.0-4.0); HEMATOCRIT 31.1 % (35.0-46.0); HEMOGLOBIN 10.5 GM/DL (11.6-15.3); LYMPH % 9.2 % (9.0-44.0); LYMPHOCYTE # 1.3 TH/MM3 (1.0-4.8); MEAN CELL VOLUME 85.5 FL (80.0-100.0); MEAN CORPUSCULAR HGB CONC 33.9 % (32.0-36.0); MEAN PLATELET VOLUME 7.4 FL (7.0-11.0); MONO % 10.4 % (0.0-8.0); MONOCYTE # 1.5 TH/MM3 (0-0.9); NEUT % 78.6 % (16.0-70.0); PLATELET COUNT 779 TH/MM3 (150-450); RED BLOOD COUNT 3.64 MIL/MM3 (4.00-5.30); RED CELL DISTRIBUTION WIDTH 13.1 % (11.6-17.2); WHITE BLOOD COUNT 14.4 TH/MM3 (4.0-11.0)
[2017-05-14 18:40] LABS: BICARBONATE 30.2 MEQ/L (21.0-32.0); CALCIUM 8.5 MG/DL (8.5-10.1); CREATININE 0.71 MG/DL (0.50-1.00); MAGNESIUM 1.7 MG/DL (1.5-2.5)
[2017-05-14] MEDS ORDERED: ACETAMINOPHEN/HYDROcodone 325 MG/10 MG TAB PO PRN (22:00)
[2017-05-14] MEDS ORDERED: REMOVE OLD DURAGESIC (FENTANYL) PATCH T-DERMAL SCH (22:00)
--- NOTE | 2017-05-15 00:35 | HHI.PR ---
Subjective Remarks LATE ENTRY FOR VISIT 05/14/17 Pt c/o continued abdominal pain. Pain is centered at RUQ surrounding biliary drain site. Pt does not feel current pain regimen is sufficient. Pt c/o pain interfering with her sleep. Pt is tolerating PO intake. Pt denies BM since 05/13. Pt agrees to try MOM in AM. Objective Vitals Vital Signs Date Time Temp Pulse Resp B/P (MAP) Pulse Ox O2 Delivery O2 Flow Rate FiO2 05/14/17 23:22 97.6 95 19 112/61 (78) 95 05/14/17 20:00 98.0 80 18 100/68 (79) 98 05/14/17 16:00 97.4 76 16 100/50 (67) 95 05/14/17 15:26 16 05/14/17 12:00 97.5 86 18 126/73 (90) 98 05/14/17 09:19 18 05/14/17 08:00 96.2 81 18 91/64 (73) 95 05/14/17 04:12 96.0 84 16 110/58 (75) 95 05/14/17 00:34 96.6 77 16 99/62 (74) 95 Result Diagram: 05/14/17 1703 05/14/17 1703 Imaging Last Impressions Thoracentesis Ultrasound 05/13/17 0000 Signed Impressions: Service Date/Time: Saturday, May 13, 2017 08:38 - CONCLUSION: Uncomplicated ultrasound guided right thoracentesis. Brenden Sanchez MD Chest X-Ray 05/13/17 0000 Signed Impressions: Service Date/Time: Saturday, May 13, 2017 09:49 - CONCLUSION: 1. No evidence of pneumothorax following thoracentesis. Dionte Francois MD Abdomen/Pelvis CT 05/11/17 1627 Signed Impressions: Service Date/Time: Thursday, May 11, 2017 18:01 - CONCLUSION: 1. Right pleural effusion with consolidation right lung base, right middle lobe and lingula may represent pneumonia. 2. There are gas bubbles with fluid collections in the right perihepatic space in addition to subcapsular fluid collection all of which could be related to placement of transhepatic percutaneous biliary external/internal drain. 3. There are cystic masses in the body and head of the pancreas and a solid mass may be present in the head of the pancreas with slight dilatation of the pancreatic duct. K. Bruce Shamlou, MD Objective Remarks GENERAL: This is a well-nourished, well-developed patient, in no apparent distress. CARDIOVASCULAR: Regular rate and rhythm without murmurs, gallops, or rubs. RESPIRATORY: Clear to auscultation. Breath sounds equal bilaterally. No wheezes , rales, or rhonchi. GASTROINTESTINAL: Abdomen soft, non-tender, nondistended. Normal active bowel sounds some possible induration around site of biliary drain, abdomen is tender to palpation at RUQ MUSCULOSKELETAL: tender at RUQ near biliary drain, +BS x 4 NEURO: Alert & Oriented x4 to person, place, time, situation. Moves all ext x4 A/P Problem List: (1) Pneumonia ICD Codes: J18.9 - Pneumonia, unspecified organism Status: Acute Plan: - unclear if pt has pneumonia - Pt did NOT cough during my visit (05/12) - There is NO fever - pt's WBC 34.6 (05/11), 20.9 (05/12), 12.6 (05/13) - continue zosyn - duonebs prn - robitussing with codeine prn - I do NOT believe that pt is septic at this time - thoracentesis, right thorax (05/13) 550ml fluid, likely exudate - pleural fluid gram stain (05/13) no WBC, no organisms (2) Pancreatic mass ICD Codes: K86.9 - Disease of pancreas, unspecified Status: Chronic Plan: - cogmt with Oncology - CT abd (05/12) --> Head of Pancrease Mass - pathology from [facility] Bx (04/29/17) --> adenocarcinoma - Pt/family in process of seeking referral at the [facility] - Duragesic increased to 50mcg daily - Pt recently started on BID morphine 15mg daily at ER, I would prefer to eliminate this if I can get her pain controlled with Duragesic - single agent. - norco 10/325, IV morphine prn pain - request Palliative Consult for assistance with pain control - DVT prophylaxis - pt/daughter interested in [id number] transfer - this request was d/w [facility] case management. [facility] will not approve. - [facility] will authorize second opinion at [facility] - I explained above to pt/daughter - Will discuss further appropriate w/u efforts with [facility]/ Dr. Cedeno. - Case d/w Dr. Raudel Rodriguez (05/14/16). Dr. Rodriguez recommends that external biliary drain remain in place for approximately another 5d to avoid biloma. - Dr. Rodriguez met with pt/daughter (05/14) to explained continued need for external biliary drain. - Case d/w Dr. Cody Cardenas (05/14/16) (3) Abdominal pain ICD Codes: R10.9 - Unspecified abdominal pain Status: Acute Plan: - recent placement of biliary drain 04/2017 - case d/w IR, Dr. Francois - possibly some residual hematoma related to procedure. - see above (4) Pleural effusion on right ICD Codes: J90 - Pleural effusion, not elsewhere classified Status: Acute Plan: - see above Problem Qualifiers (1) Pneumonia: Qualified Codes: J18.9 - Pneumonia, unspecified organism (2) Abdominal pain: Qualified Codes: R10.11 - Right upper quadrant pain Margarito Jackson DO May 15, 2017 00:35
[2017-05-15] MEDS: MORPHINE SULFATE 2 MG/ML INJ IV PRN ×3 (02:21→09:31)
[2017-05-15 04:00] VITALS: BP 108/57; PULSE 85; RESP 18; TEMP 95.9; O2SAT 95
[2017-05-15] MEDS: PIPERACIL-TAZO 3.375 GM PREMIX 50 ML IV SCH ×3 (05:45→18:17)
[2017-05-15] MEDS: ACETAMINOPHEN 500 MG CPLT PO SCH ×3 (05:47→22:13)
[2017-05-15] MEDS: 1/2 NS + KCL 20 MEQ INJ 1,000 ML IV SCH (05:53)
[2017-05-15] MEDS: ONDANSETRON HCL 4 MG/2 ML VIAL IVP PRN ×2 (05:54→14:15)
[2017-05-15 08:00] VITALS: BP 102/57; PULSE 76; RESP 16; TEMP 96.9; O2SAT 97
[2017-05-15] MEDS ORDERED: MAGNESIUM HYDROXIDE SUSP 30 ML CUP PO ONE (08:00)
[2017-05-15] MEDS: SODIUM CHLORIDE 0.9% FLUSH 10 ML FLUSH IV FLUSH SCH ×2 (09:18→20:17)
[2017-05-15] MEDS: DOCUSATE SODIUM 50 MG/SENNA 8.6 MG TAB PO SCH ×2 (09:18→20:15)
[2017-05-15] MEDS: MORPHINE SULFATE 15 MG CONTROLLED RELEASE TAB PO SCH ×2 (10:17→20:16)
[2017-05-15 12:00] VITALS: BP 105/55; PULSE 83; RESP 18; TEMP 97.2; O2SAT 96
--- NOTE | 2017-05-15 12:42 | PD.CONS ---
Consult Service Palliative Care Consult Requested By Dr. Jackson. Primary Care Physician No Primary Care Physician Reason for Consultation a. To assist with evaluation and management of symptoms including: pain. b. To assist medical decision maker(s) with: better understanding of current medical conditions; weighing benefits/burdens of medical treatment options; making medical treatment decisions. . HPI History of Present Illness Mrs. Lemos is a 67 y/o female with a medical history of cholangiocarcinoma. Patient presented to ED on 05/11/17 for evaluation of persistent abdominal pain , fever and leakage around biliary tube. Patient reports that she was seen at the emergency department into to seal, she was prescribed pain medication and discharge home. Patient continued with fever and cough prompting her to present to ED for this evaluation. ED workup to include leukocytoses 34.6, Hgb 11.2, platelet count 662. Sodium 131, potassium 3.1, BUN/creatinine 33/0.97. Elevated liver enzymes to include bilirubin 2.4, AST 14, ALT 56, alkaline phosphatase 290. UA negative for nitrates or leukocytes. Chest x-ray revealing small right pleural effusion and right lung base consolidation, likely representing pneumonia. Abdomen/pelvis CT revealing right pleural effusion with consolidation to right lung base. Gas bubbles with fluid collections in the right perihepatic space. Cystic mass in the body and head of the pancreas and a solid mass may be present in the head of the pancreas with slight dilatation of the pancreatic duct. Patient was admitted for further management. GI, Dr. Sprague consulted on 05/12/17. GI recommending oncology and general surgery consultation. Oncology, Dr. Cedeno consulted on 05/12/17. Patient with diagnosis of pancreatic adenocarcinoma. Patient with pancreatic masses, common bile dilated with an internal/external drain. As per oncology, pancreatic cancer appears to be localized and likely resectable. However, patient and family requesting evaluation for [facility] to discuss further. Patient evaluated by interventional radiology, Dr. Rodriguez. As per IR, "percutaneous transhepatic drainage complicated by what appears to be subcapsular hematoma of the liver and right sided pleural effusion". PTHD to same place it to biliary obstruction. on 05/13/17, patient underwent right thoracentesis removing 550 mL. Cytology negative for malignant cells. Patient has been evaluated for general surgery, Dr. Cardenas. No indication for surgical intervention at this time. Patient reevaluated by IR on 05/14/17, plan is to remove the drain on 05/18 or 05/19. Patient endorsing intractable pain. Palliative care has been consulted for assistance with symptom management. Reviewed past medical history. Patient with known pancreatic mass and elevated liver enzymes first observed in July 2015. Patient underwent workup to include PET/CT which was negative. In April 2017, patient was admitted to [facility] secondary to increasing epigastric pain for the previous month. She was noted with elevated liver enzymes. Pt was seen by Dr. Reilly at [place] and ERCP was attempted on 04/27/17 for biliary stent placement but was unsuccessful. The procedure report noted a prominent ampullae with bulging, pancreatic duct dilated with abrupt cut off in the head of the pancreas, CBD dilated with abrupt cut off in the head of the pancreas consistent with pancreatic head mass. Patient also underwent colonoscopy on 04/27. On 04/28/17 , patient was transferred from [facility] for biliary stent placement by interventional radiology. On patient underwent biliary stent placement with IR. EUS with biopsy, pathology revealing chronic pancreatitis - cannot exclude neoplasm. On 05/01/17, patient underwent biliary stent placement , exchange of internal/external biliary drain. 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 Patient was discharged home with home health on 05/02/17. Patient seen in her room. Dual visit with ANASTACIA Cat. Pt was sitting up in chair in moderate distress secondary to right upper lower quadrant pain. Patient is alert and oriented x self, place and situation. Daughter Joshua at bedside. In this first visit, reviewed the role of palliative care in advanced/ chronic illness in regards to pain and symptom management as well as support surrounding goals of care and advance care planning. Patient and daughter receptive to our visit. Obtained patient's past medical history and psychosocial history. Reviewed events leading to this hospitalization, clinical course and current medical management. Patient and daughter with a good understanding of patient's clinical condition and recommendations. Patient reports that she will likely to follow-up at [facility] for further recommendations and management. In the meantime, the goal of therapy during this admission is for symptom management of abdominal pain. Patient reports that pain is sharp, well localized to right upper and lower abdomen. Pain exacerbated by any movement or deep inspiration. Alleviated with morphine IV, however, short lived effects. Patient denies nausea or vomiting. Shortness of breath on physical exertion. Patient reports that her appetite remains good, ate her breakfast this morning. Patient reports that pain is interfering with sleep and ambulation. Last bowel movement 2 days ago. Case discussed in great detail with Dr. Jackson. . Function/Cognitive Trajectory Patient residing independently prior to this hospitalization. Receiving home health services for physical therapy after previous acute hospitalization in April. Patient independent with all ADLs. No cognitive decline reported or observed. . Review of Systems Constitutional: COMPLAINS OF: Fatigue, Fever, Pain, DENIES: Change in appetite Endocrine: DENIES: Heat/cold intolerance Eyes: DENIES: Blurred vision, Eye inflammation, Eye pain Ears, nose, mouth, throat: DENIES: Hearing loss, Oral lesions, Ear Pain, Running Nose Respiratory: COMPLAINS OF: Cough, Sputum production, Shortness of breath Cardiovascular: COMPLAINS OF: Dyspnea on Exertion, DENIES: Chest pain, Lower Extremity Edema Gastrointestinal: DENIES: Constipation, Diarrhea, Nausea, Vomiting Musculoskeletal: COMPLAINS OF: Back pain, DENIES: Neck pain, Decreased range of motion Integumentary: DENIES: Pruritus Hematologic/Lymphatics: DENIES: Bruising Immunologic/Allergic: DENIES: Eczema Neurologic: DENIES: Abnormal gait, Seizures, Speech Problems, Tremor Psychiatric: COMPLAINS OF: Anxiety, DENIES: Confusion, Mood changes, Hallucinations, Agitation Past Family Social History Coded Allergies: hydromorphone (Verified Allergy, Severe, Itching, 05/11/17) Past Medical History Osteoarthritis Bronchiectasis . Past Surgical History cholecystectomy carpal tunnel release bilat bilat tubal ligation c section x 2 colonoscopy and ERCP . Reported Medications Duragesic (Fentanyl) 25 Mcg/Hour Patch.td72 1 Patch T-DERMAL Q3D Delsym Cough Chest Congestion (Dextromethorphan-Guaifenesin Liq) 5-100 Mg/5 Ml Liq 20 Ml PO Q6H PRN Morphine ER (Morphine Sulfate) 15 Mg Tab 15 Mg PO BID Tylenol (Acetaminophen) 325 Mg Tab 500 Mg PO Q8HR Vernon (Hydrocodone-Acetaminophen) 7.5-325 mg Tab 1 Tab PO Q8HR PRN . Current Medications Medications (Trade) Dose Ordered Sig/Rahul Route Start Time Stop Time Status Last Admin (Oramorph Sr) 15 mg BID PO 05/12/17 09:00 05/15/17 10:17 (Robitussin Ac 200-20 Mg/10 ml Liq) 10 ml Q6H PRN PO 05/11/17 21:30 05/14/17 02:17 (Tylenol) 500 mg Q8HR PO 05/11/17 22:00 05/15/17 05:47 Piperacillin Sod/ Tazobactam Sod 50 ml @ 100 mls/hr Q6HR IV 05/12/17 00:00 05/15/17 05:45 (NS Flush) 2 ml UNSCH PRN IV FLUSH 05/11/17 21:45 05/14/17 15:24 (NS Flush) 2 ml BID IV FLUSH 05/12/17 09:00 05/15/17 09:18 (Zofran Inj) 4 mg Q6H PRN IVP 05/11/17 21:45 05/15/17 05:54 (Narcan Inj) 0.4 mg UNSCH PRN IV PUSH 05/11/17 21:45 (Elayne-Colace) 1 tab BID PO 05/12/17 09:00 05/15/17 09:18 (Milk Of Magnesia Liq) 30 ml Q12H PRN PO 05/11/17 21:45 05/12/17 15:39 (Senokot) 17.2 mg Q12H PRN PO 05/11/17 21:45 (Dulcolax Supp) 10 mg DAILY PRN RECTAL 05/11/17 21:45 (Lactulose Liq) 30 ml DAILY PRN PO 05/11/17 21:45 (Duoneb Neb) 1 ampule Q8HR WHILE AWAKE NEB PRN NEB 05/11/17 22:00 05/14/17 20:23 Potassium Chloride/Sodium Chloride 1,000 ml @ 84 mls/hr [id number] IV 05/11/17 22:00 05/15/17 05:53 (Morphine Inj) 4 mg Q3H PRN IV 05/12/17 14:45 05/15/17 09:31 (Duragesic 50 Mcg Patch.72 Hr) 1 patch Q3D T-DERMAL 05/12/17 15:00 05/12/17 15:38 Miscellaneous Information 1 Q3D T-DERMAL 05/12/17 15:00 05/12/17 15:00 (Vernon 10-325 Mg) 1 tab Q4H PRN PO 05/14/17 22:00 Family History Mother secondary to complications of DM2. Substance Use Tobacco: Denies. Alcohol: Denies. Prescription med abuse: Denies. Illicits: Denies. . Psychosocial History Patient originally from [place]. Moved to [place] over 20 years ago. She is , has 2 children. Daughter Elieser lives locally, son lives in [place]. 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 . Spiritual/Cultural Factors No sabianist affiliation. . Living Will: Completed, but not made available Health Care Surrogate: Completed, but not made available Health Care Surrogate(s): Advance directives reported as completed. Patient reports that she has named her daughter Joshua Boogie as healthcare surrogate decision maker. . Today's verbally stated goals: Full code. Patient seeking aggressive management. . Family/friends goals: Daughter Shasta supportive of patient's wishes. . Physical Exam No ethical legal issues identified. Vital Signs Date Time Temp Pulse Resp B/P (MAP) Pulse Ox O2 Delivery O2 Flow Rate FiO2 05/15/17 09:36 18 05/15/17 08:00 96.9 76 16 102/57 (72) 97 05/15/17 04:00 95.9 85 18 108/57 (74) 95 05/14/17 23:22 97.6 95 19 112/61 (78) 95 05/14/17 20:00 98.0 80 18 100/68 (79) 98 05/14/17 16:00 97.4 76 16 100/50 (67) 95 05/14/17 15:26 16 05/14/17 12:00 97.5 86 18 126/73 (90) 98 Exam CONSTITUTIONAL/GENERAL: This is an adequately nourished patient sitting up in chair in moderate distress secondary to abdominal pain. Restless. TUBES/LINES/DRAINS: PIV's, biliary drain to right flank, moderate amount of clear dark brown discharge. SKIN: No jaundice, rashes. Ecchymoses on upper extremities. Skin temperature appropriate. Not diaphoretic. Biliary drain to right flank, mild erythema around the insertion site. HEAD: Atraumatic. Normocephalic. EYES: Pupils equal and round and reactive. Extraocular motions intact. No scleral icterus. No injection or drainage. ENT: Hearing grossly normal. Nose without bleeding or purulent drainage. Moist oral mucosa. NECK: Trachea midline. Supple, nontender. CARDIOVASCULAR: Regular rate and rhythm without murmurs, gallops, or rubs. No JVD. Peripheral pulses symmetric. RESPIRATORY/CHEST: Symmetric, unlabored respirations. Intermittent cough. Expiratory crackles bilaterally, right worse than left. GASTROINTESTINAL: Abdomen soft, nondistended. Bowel sounds present. Tenderness to right upper and lower quadrant. Biliary drain in place. GENITOURINARY: Without palpable bladder distension. MUSCULOSKELETAL: Extremities without clubbing, cyanosis, or edema. No mottling or clubbing. NEUROLOGICAL: Awake and alert. Motor and sensory grossly within normal limits. Follows commands. Cognitively sharp. Moves all extremities. PSYCHIATRIC: Calm, pleasant. Intermittent restlessness. . Diagnostic Tests Laboratory Laboratory Tests Test 05/13/17 06:42 05/13/17 09:45 05/14/17 17:03 White Blood Count 12.6 TH/MM3 (4.0-11.0) 14.4 TH/MM3 (4.0-11.0) Red Blood Count 3.57 MIL/MM3 (4.00-5.30) 3.64 MIL/MM3 (4.00-5.30) Hemoglobin 10.1 GM/DL (11.6-15.3) 10.5 GM/DL (11.6-15.3) Hematocrit 30.6 % (35.0-46.0) 31.1 % (35.0-46.0) Mean Corpuscular Volume 85.7 FL (80.0-100.0) 85.5 FL (80.0-100.0) Mean Corpuscular Hemoglobin 28.4 PG (27.0-34.0) 29.0 PG (27.0-34.0) Mean Corpuscular Hemoglobin Concent 33.1 % (32.0-36.0) 33.9 % (32.0-36.0) Red Cell Distribution Width 13.0 % (11.6-17.2) 13.1 % (11.6-17.2) Platelet Count 644 TH/MM3 (150-450) 779 TH/MM3 (150-450) Mean Platelet Volume 7.2 FL (7.0-11.0) 7.4 FL (7.0-11.0) Neutrophils (%) (Auto) 81.8 % (16.0-70.0) 78.6 % (16.0-70.0) Lymphocytes (%) (Auto) 9.8 % (9.0-44.0) 9.2 % (9.0-44.0) Monocytes (%) (Auto) 6.4 % (0.0-8.0) 10.4 % (0.0-8.0) Eosinophils (%) (Auto) 1.5 % (0.0-4.0) 1.2 % (0.0-4.0) Basophils (%) (Auto) 0.5 % (0.0-2.0) 0.6 % (0.0-2.0) Neutrophils # (Auto) 10.3 TH/MM3 (1.8-7.7) 11.3 TH/MM3 (1.8-7.7) Lymphocytes # (Auto) 1.2 TH/MM3 (1.0-4.8) 1.3 TH/MM3 (1.0-4.8) Monocytes # (Auto) 0.8 TH/MM3 (0-0.9) 1.5 TH/MM3 (0-0.9) Eosinophils # (Auto) 0.2 TH/MM3 (0-0.4) 0.2 TH/MM3 (0-0.4) Basophils # (Auto) 0.1 TH/MM3 (0-0.2) 0.1 TH/MM3 (0-0.2) CBC Comment DIFF FINAL DIFF FINAL Differential Comment Prothrombin Time 17.2 SEC (9.8-11.6) Prothromb Time International Ratio 1.7 RATIO Blood Urea Nitrogen 9 MG/DL (7-18) 8 MG/DL (7-18) Creatinine 0.57 MG/DL (0.50-1.00) 0.71 MG/DL (0.50-1.00) Random Glucose 86 MG/DL (74-106) 92 MG/DL (74-106) Calcium Level 8.4 MG/DL (8.5-10.1) 8.5 MG/DL (8.5-10.1) Magnesium Level 2.1 MG/DL (1.5-2.5) 1.7 MG/DL (1.5-2.5) Sodium Level 139 MEQ/L (136-145) 138 MEQ/L (136-145) Potassium Level 4.6 MEQ/L (3.5-5.1) 4.6 MEQ/L (3.5-5.1) Chloride Level 104 MEQ/L (98-107) 100 MEQ/L (98-107) Carbon Dioxide Level 28.0 MEQ/L (21.0-32.0) 30.2 MEQ/L (21.0-32.0) Anion Gap 7 MEQ/L (5-15) 8 MEQ/L (5-15) Estimat Glomerular Filtration Rate 106 ML/MIN (>89) 83 ML/MIN (>89) Body Fluid Amylase Source PLEURAL Body Fluid Amylase 35 U/L Pleural Fluid pH 8.0 Pleural Fluid WBC 885 /MM3 (0-10) Pleural Fluid RBC 1165 /MM3 (0-0) Pleural Fluid Neutrophils 75 % Pleural Fluid Lymphocytes 25 % Pleural Fluid Comment Pleural Fluid Total Protein 4.3 GM/DL Pleural Fluid LDH 184 U/L Pleural Fluid Glucose 87 MG/DL Result Diagram: 05/14/17 1703 05/14/17 1703 Microbiology Microbiology Date/Time Source Procedure Growth Status 05/13/17 09:45 Fluid Pleural Fluid Fungal Smear - Final NO FUNGAL ELEMENTS SEEN. Resulted 05/13/17 09:45 Fluid Pleural Fluid Fungal Culture Pending Resulted 05/13/17 09:45 Fluid Pleural Fluid Acid Fast Stain - Final NO ACID FAST BACILLI SEEN Resulted 05/13/17 09:45 Fluid Pleural Fluid Mycobacterial Culture Pending Resulted 05/13/17 09:45 Fluid Pleural Fluid Gram Stain - Final Resulted 05/13/17 09:45 Fluid Pleural Fluid Body Fluid Culture - Preliminary NO GROWTH IN 48 HOURS. Resulted Imaging Last Impressions Thoracentesis Ultrasound 05/13/17 0000 Signed Impressions: Service Date/Time: Saturday, May 13, 2017 08:38 - CONCLUSION: Uncomplicated ultrasound guided right thoracentesis. Brenden Sanchez MD Chest X-Ray 05/13/17 0000 Signed Impressions: Service Date/Time: Saturday, May 13, 2017 09:49 - CONCLUSION: 1. No evidence of pneumothorax following thoracentesis. Dionte Francois MD Abdomen/Pelvis CT 05/11/17 1627 Signed Impressions: Service Date/Time: Thursday, May 11, 2017 18:01 - CONCLUSION: 1. Right pleural effusion with consolidation right lung base, right middle lobe and lingula may represent pneumonia. 2. There are gas bubbles with fluid collections in the right perihepatic space in addition to subcapsular fluid collection all of which could be related to placement of transhepatic percutaneous biliary external/internal drain. 3. There are cystic masses in the body and head of the pancreas and a solid mass may be present in the head of the pancreas with slight dilatation of the pancreatic duct. Mary Jane Garcia MD Procedures * 05/13/17 -right thoracentesis . Patient/Family Conference Present at Family Conference: Patient and daughter Shasta. . Family Conference Time (mins): 38 Family Conference Location: Bedside Issues Discussed: * Palliative care role, purpose, approach * Additional medical, psychosocial, and spiritual history * Patients general health, functional status, and cognitive changes in the months leading up to the current hospitalization * Patient/family understanding of the current medical problems * Patients goals of care as best understood from advance directives and/or conversations and/or values * Current medical treatment options and benefits/burdens of those options * Questions answered to the best of my ability * Palliative care contact information provided . Assessment and Plan Disease Oriented Problem List: (1) Pneumonia (2) Sepsis (3) Pleural effusion on right (4) Common biliary duct obstruction (5) Cholangiocarcinoma (6) Pancreatic mass Symptom Scale: (1) Pain 0-10 Scale: 8 Comment: Secondary to biliary obstruction s/p percutaneous transhepatic drainage. Complicated by what appears to be subcapsular hematoma of the liver. . (2) Anxiety 0-10 Scale: Unable to quantify Comment: Exacerbated by pain. Pertinent Non-Medical Issues Psychosocial: Patient originally from [place]. Moved to [place] over 20 years ago. She is , has 2 children. Daughter Elieser lives locally, son lives in [place]. 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 Spiritual: No sabianist affiliation. Legal: Advance directives reported as completed. Pending copy. Ethical issues impacting care: No ethical legal issues identified. . Important Contacts Patient's daughter Shasta Boogie . . Prognosis Mrs. Lemos it's a 67-year-old female with a medical history significant for cholangiocarcinoma, pancreatic cancer and biliary obstruction status post biliary drainage. Clinical course complicated by sepsis, pneumonia, pleural effusion requiring thoracentesis. Patient remains a high risk for further complications, continue decline and . . Code Status: Full Code Plan * CODE STATUS: Full code. * HEALTHCARE DECISION-MAKING: Patient participating in medical decision-making. She appears to have A good understanding of her diagnosis and clinical condition. Retains the ability to weigh benefits versus burdens of treatment options. Advance directives reported as completed, patient has designated her daughter Joshua Boogie as healthcare surrogate decision maker. * GOALS OF CARE: Patient wishing to maintain the best quality of life while undergoing medical management. She wishes to maximize symptom management while inpatient, planning to follow-up at [facility] for additional recommendations. * SYMPTOMS: = Pain: Acute abdominal pain to right upper and lower quadrant. Pain secondary to biliary obstruction status post percutaneous transhepatic drainage, subcapsular hematoma. Home regimen consisting on fentanyl patch 25 mcg and oxycodone 20 mg every 4 hours as needed. Patient endorsing worsening intractable pain for the previous week. Pain is described as sharp, intense. Exacerbated by physical exertion and deep breathing alleviated with pain medication. Fentanyl patch was increased on 05/12/17 to 50mcg. Patient was placed on morphine ER 15 mg twice a day, Vernon 10/325 as needed and morphine IV 4 mg q3hr PRN. In the past 24 hours, patient has received 7 doses of morphine 4 mg IV. Has not taking any Vernon. Total oral morphine equivalent dose in the past 24 hours of 214mg. * Palliative care recommendations. Pain acute in nature, expected to subside as subcapsular hematoma is absorbed/biliary obstruction continues to resolve. * May continue fentanyl patch 50mcg. Patient would benefit from discontinuing morphine ER, single extended opioid is recommended. * Discontinue Vernon 10/325. * Add oxycodone 15 mg q4hr PRN for breakthrough pain. Patient was counseled at length re advantages of oral opioid vs morphine IV in regards to prolonged effect (1/2 time). * May continue morphine IV 4 mg q3hr as previously ordered. However, reserved for severe pain not relieved by Oxycodone. * Case discussed with Dr. Jackson. * Palliative care contact information has been provided to patient and daughter. * Palliative care will continue to follow-up for further assistance with symptom management as patient's clinical course continues to evolve. . Time Spent Total Floor Time (mins): 67 (Total time to include review and summarization of available medical records to include prior hospitalization, physical exam, goals of care conversation with patient and daughter, case discussion with Dr. Jackson.) >50% Counseling/Coord of Care: Yes Thank you for the opportunity to participate in the care of Ms. Benítez. Attestation To help prompt me to consider important information that might be impacting today's encounter and assessment, information from prior notes written by myself or my colleagues may have been "brought forward" into today's note. My signature on this note, however, is an attestation that I personally performed the exam, history, and/or decision-making noted today, and, unless otherwise indicated, the interactions with patient, family, and staff as well as the review of records all occurred today. I also attest that the listed assessment and stated plan reflect my best clinical judgment today based on the combination of historical information, prior notes, and today's exam/ interactions. When time spent is documented, it refers only to time spent today by the signer, or if indicated, combined time spent today by collaborating physician/nurse practitioner. Emerita Ramirez May 15, 2017 12:17
[2017-05-15] MEDS: fentaNYL 50 MCG/HR PATCH T-DERMAL SCH (14:09)
--- NOTE | 2017-05-15 14:38 | HHI.PR ---
Subjective Remarks Pt c/o continued abdominal pain at RUQ associated with biliary drain. Objective Vitals Vital Signs Date Time Temp Pulse Resp B/P (MAP) Pulse Ox O2 Delivery O2 Flow Rate FiO2 05/15/17 12:00 97.2 83 18 105/55 (72) 96 05/15/17 11:15 18 05/15/17 09:36 18 05/15/17 08:00 96.9 76 16 102/57 (72) 97 05/15/17 04:00 95.9 85 18 108/57 (74) 95 05/14/17 23:22 97.6 95 19 112/61 (78) 95 05/14/17 20:00 98.0 80 18 100/68 (79) 98 05/14/17 16:00 97.4 76 16 100/50 (67) 95 05/14/17 15:26 16 Result Diagram: 05/14/17 1703 05/14/17 1703 Imaging Last Impressions Thoracentesis Ultrasound 05/13/17 0000 Signed Impressions: Service Date/Time: Saturday, May 13, 2017 08:38 - CONCLUSION: Uncomplicated ultrasound guided right thoracentesis. Brenden Sanchez MD Chest X-Ray 05/13/17 0000 Signed Impressions: Service Date/Time: Saturday, May 13, 2017 09:49 - CONCLUSION: 1. No evidence of pneumothorax following thoracentesis. Dionte Francois MD Abdomen/Pelvis CT 05/11/17 1627 Signed Impressions: Service Date/Time: Thursday, May 11, 2017 18:01 - CONCLUSION: 1. Right pleural effusion with consolidation right lung base, right middle lobe and lingula may represent pneumonia. 2. There are gas bubbles with fluid collections in the right perihepatic space in addition to subcapsular fluid collection all of which could be related to placement of transhepatic percutaneous biliary external/internal drain. 3. There are cystic masses in the body and head of the pancreas and a solid mass may be present in the head of the pancreas with slight dilatation of the pancreatic duct. Mary Jane Garcia MD Objective Remarks GENERAL: This is a well-nourished, well-developed patient, in no apparent distress. CARDIOVASCULAR: Regular rate and rhythm without murmurs, gallops, or rubs. RESPIRATORY: Clear to auscultation. Breath sounds equal bilaterally. No wheezes , rales, or rhonchi. GASTROINTESTINAL: Abdomen soft, non-tender, nondistended. Normal active bowel sounds some possible induration around site of biliary drain, abdomen is tender to palpation at RUQ MUSCULOSKELETAL: no c/c/e NEURO: Alert & Oriented x4 to person, place, time, situation. Moves all ext x4 A/P Problem List: (1) Pancreatic mass ICD Codes: K86.9 - Disease of pancreas, unspecified Status: Chronic Plan: - 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 - appreciate input from Palliative Service - oxycodone 15mg q4h, morphine 4mgIV if NO pain relief 1 hour after receiving oxycodone - Case d/w Dr. Lee Pain Mgmt (05/15) - I had arranged for celiac plexus nerve block at [place] with Dr. Lee on 05/18/17 - Pt/daughter request that we hold off on nerve block. - Will hopefully have external biliary drain removed on Thursday by Interventional Radiology - If pt remains painful after external biliary drain has been removed, then pt/ daughter would likely be agreeable with proceeding with celiac nerve block - Dr. Lee indicated that he would be available to do the procedure Thu- next week (05/18 - 05/21/17) - DVT prophylaxis - CP has authorized second opinion at [facility], outpt - This was d/w [facility] Case Mgmt (05/15), and pt can have imaging studies at [facility]. - Case reviewed with Dr. Cedeno (05/15) - Dr. Cedeno recommends Abdominal MRI with/without contrast. Pt/daughter would prefer for study to be completed at [facility] - Dr. Cedeno feels that pt may be a candidate for surgical resection. - Case d/w Dr. Raudel Rodriguez (05/14/16). Dr. Rodriguez recommends that external biliary drain remain in place for approximately another 5d to avoid biloma. - Dr. Rodriguez met with pt/daughter (05/14) to explained continued need for external biliary drain. - Case d/w Dr. Cody Cardenas (05/14/16) (2) Pneumonia ICD Codes: J18.9 - Pneumonia, unspecified organism Status: Acute Plan: - doubt pneumonia - There is NO fever - pt's WBC 34.6 (05/11), 20.9 (05/12), 12.6 (05/13), 14.4 (05/14) - continue zosyn - duonebs prn - robitussing with codeine prn - I do NOT believe that pt is septic at this time - thoracentesis, right thorax (05/13) 550ml fluid, likely exudate - pleural fluid gram stain (05/13) no WBC, no organisms (3) Abdominal pain ICD Codes: R10.9 - Unspecified abdominal pain Status: Acute Plan: - recent placement of biliary drain 04/2017 - case d/w IR, Dr. Francois - possibly some residual hematoma related to procedure. - see above (4) Pleural effusion on right ICD Codes: J90 - Pleural effusion, not elsewhere classified Status: Acute Plan: - see above Problem Qualifiers (1) Pneumonia: Qualified Codes: J18.9 - Pneumonia, unspecified organism (2) Abdominal pain: Qualified Codes: R10.11 - Right upper quadrant pain Margarito Jackson DO May 15, 2017 14:38
[2017-05-15] MEDS: REMOVE OLD PATCH T-DERMAL SCH (15:00)
[2017-05-15 16:00] VITALS: BP 105/55; PULSE 77; RESP 18; TEMP 95.6; O2SAT 98
[2017-05-15 20:00] VITALS: BP 112/68; PULSE 92; RESP 18; TEMP 96.1; O2SAT 95
[2017-05-15] MEDS: guaiFENesin/CODEINE SYRUP 200 MG/20 MG/10 ML CUP PO PRN (22:18)
[2017-05-16] VITALS: BP 106/55; PULSE 79; RESP 18; TEMP 95.2; O2SAT 95
[2017-05-16] MEDS: MORPHINE SULFATE 2 MG/ML INJ IV PRN ×2 (00:21→03:32)
[2017-05-16] MEDS: PIPERACIL-TAZO 3.375 GM PREMIX 50 ML IV SCH ×5 (00:21→23:54)
[2017-05-16 04:00] VITALS: BP 109/55; PULSE 96; RESP 18; TEMP 96.2; O2SAT 94
[2017-05-16] MEDS: ACETAMINOPHEN 500 MG CPLT PO SCH ×2 (05:48→14:00)
[2017-05-16 08:00] VITALS: BP 106/66; PULSE 82; RESP 17; TEMP 97.1; O2SAT 93
[2017-05-16] MEDS: RESP: ALBUTEROL 2.5 MG/IPRATROPIUM 0.5 MG NEB (PRN) NEB ×2 (08:31→20:07)
[2017-05-16] MEDS: SODIUM CHLORIDE 0.9% FLUSH 10 ML FLUSH IV FLUSH SCH ×2 (08:53→21:51)
[2017-05-16] MEDS: DOCUSATE SODIUM 50 MG/SENNA 8.6 MG TAB PO SCH ×2 (08:53→21:49)
[2017-05-16] MEDS: MORPHINE SULFATE 15 MG CONTROLLED RELEASE TAB PO SCH ×2 (08:53→21:50)
[2017-05-16] MEDS: MAGNESIUM HYDROXIDE SUSP 30 ML CUP PO PRN (08:53)
[2017-05-16 10:22] LABS: BASOPHIL # 0.1 TH/MM3 (0-0.2); BASOPHIL % 0.5 % (0.0-2.0); EOSINOPHIL # 0.2 TH/MM3 (0-0.4); EOSINOPHIL % 1.1 % (0.0-4.0); HEMATOCRIT 32.1 % (35.0-46.0); HEMOGLOBIN 10.8 GM/DL (11.6-15.3); LYMPH % 9.9 % (9.0-44.0); LYMPHOCYTE # 1.9 TH/MM3 (1.0-4.8); MEAN CELL VOLUME 84.9 FL (80.0-100.0); MEAN CORPUSCULAR HEMOGLOBIN 28.4 PG (27.0-34.0); MEAN CORPUSCULAR HGB CONC 33.5 % (32.0-36.0); MEAN PLATELET VOLUME 6.8 FL (7.0-11.0); MONO % 7.1 % (0.0-8.0); MONOCYTE # 1.4 TH/MM3 (0-0.9); NEUT % 81.4 % (16.0-70.0); PLATELET COUNT 811 TH/MM3 (150-450); RED BLOOD COUNT 3.78 MIL/MM3 (4.00-5.30); WHITE BLOOD COUNT 19.6 TH/MM3 (4.0-11.0)
[2017-05-16 12:00] VITALS: BP 106/58; PULSE 90; RESP 17; TEMP 96.8; O2SAT 93
[2017-05-16 16:00] VITALS: BP 106/56; PULSE 89; RESP 16; TEMP 97; O2SAT 96
[2017-05-16] MEDS ORDERED: ACETAMINOPHEN 500 MG CPLT PO PRN (18:15)
[2017-05-16] MEDS ORDERED: TEMAZEPAM 7.5 MG CAP PO PRN (18:15)
[2017-05-16 20:00] VITALS: BP 110/56; PULSE 94; RESP 18; TEMP 97.3; O2SAT 93
[2017-05-16] MEDS: TEMAZEPAM 15 MG CAP PO PRN (23:54)
[2017-05-17] VITALS: BP 93/52; PULSE 86; RESP 16; TEMP 97.3; O2SAT 94
[2017-05-17] MEDS: PIPERACIL-TAZO 3.375 GM PREMIX 50 ML IV SCH ×3 (04:55→17:44)
[2017-05-17 07:18] LABS: AUTOMATED NEUTROPHIL # 13.2 TH/MM3 (1.8-7.7); BASOPHIL # 0.1 TH/MM3 (0-0.2); BASOPHIL % 0.8 % (0.0-2.0); EOSINOPHIL # 0.2 TH/MM3 (0-0.4); EOSINOPHIL % 1.4 % (0.0-4.0); HEMATOCRIT 29.9 % (35.0-46.0); HEMOGLOBIN 10.1 GM/DL (11.6-15.3); LYMPH % 11.8 % (9.0-44.0); MEAN CELL VOLUME 84.7 FL (80.0-100.0); MEAN CORPUSCULAR HEMOGLOBIN 28.7 PG (27.0-34.0); MEAN CORPUSCULAR HGB CONC 33.9 % (32.0-36.0); MEAN PLATELET VOLUME 6.9 FL (7.0-11.0); MONO % 6.7 % (0.0-8.0); MONOCYTE # 1.1 TH/MM3 (0-0.9); NEUT % 79.3 % (16.0-70.0); PLATELET COUNT 730 TH/MM3 (150-450); RED BLOOD COUNT 3.53 MIL/MM3 (4.00-5.30); RED CELL DISTRIBUTION WIDTH 13.2 % (11.6-17.2); WHITE BLOOD COUNT 16.6 TH/MM3 (4.0-11.0)
[2017-05-17 07:45] LABS: ALBUMIN 2.1 GM/DL (3.4-5.0); ALT (GPT) 30 U/L (10-53); AST (GOT) 23 U/L (15-37); BICARBONATE 31.5 MEQ/L (21.0-32.0); BLOOD UREA NITROGEN 8 MG/DL (7-18); CALCIUM 8.7 MG/DL (8.5-10.1); CHLORIDE 98 MEQ/L (98-107); CREATININE 0.65 MG/DL (0.50-1.00); GLOMERULAR FILTRATION RATE 91 ML/MIN (>89); GLUCOSE,RANDOM 128 MG/DL (74-106); SODIUM (NA) 136 MEQ/L (136-145)
[2017-05-17 07:48] LABS: ALKALINE PHOSPHATASE 268 U/L (45-117); TOTAL BILIRUBIN ADULT 0.8 MG/DL (0.2-1.0); TOTAL PROTEIN 7.4 GM/DL (6.4-8.2)
[2017-05-17 08:00] VITALS: BP 111/57; PULSE 89; RESP 16; TEMP 96.5; O2SAT 95
[2017-05-17] MEDS: DOCUSATE SODIUM 50 MG/SENNA 8.6 MG TAB PO SCH ×2 (08:33→20:07)
[2017-05-17] MEDS: MORPHINE SULFATE 15 MG CONTROLLED RELEASE TAB PO SCH ×2 (08:34→20:07)
[2017-05-17] MEDS: SODIUM CHLORIDE 0.9% FLUSH 10 ML FLUSH IV FLUSH SCH ×2 (08:34→20:07)
[2017-05-17] MEDS: guaiFENesin/CODEINE SYRUP 200 MG/20 MG/10 ML CUP PO PRN (10:51)
[2017-05-17 12:00] VITALS: BP 113/64; PULSE 85; RESP 17; TEMP 96.4; O2SAT 95
[2017-05-17 16:00] VITALS: BP 117/73; PULSE 87; RESP 17; TEMP 97.1; O2SAT 95
--- NOTE | 2017-05-17 16:16 | HHI.PR ---
Subjective Remarks Pt c/o continued abdominal pain, but today able to lengthen time between oxycodone to q5h. Tolerating PO intake. No n/v. Pt reports that pt she had several large, hard bowel movement 05/16/17 around 8PM Pt slept much better last night after restoril. Objective Vitals Vital Signs Date Time Temp Pulse Resp B/P (MAP) Pulse Ox O2 Delivery O2 Flow Rate FiO2 05/17/17 12:00 96.4 85 17 113/64 (80) 95 05/17/17 08:00 96.5 89 16 111/57 (75) 95 05/17/17 00:00 97.3 86 16 93/52 (66) 94 05/16/17 20:00 97.3 94 18 110/56 (74) 93 Result Diagram: 05/17/17 0635 05/17/17 0635 Imaging Last Impressions Thoracentesis Ultrasound 05/13/17 0000 Signed Impressions: Service Date/Time: Saturday, May 13, 2017 08:38 - CONCLUSION: Uncomplicated ultrasound guided right thoracentesis. Brendne Sanchez MD Chest X-Ray 05/13/17 0000 Signed Impressions: Service Date/Time: Saturday, May 13, 2017 09:49 - CONCLUSION: 1. No evidence of pneumothorax following thoracentesis. Dionte Francois MD Abdomen/Pelvis CT 05/11/17 1627 Signed Impressions: Service Date/Time: Thursday, May 11, 2017 18:01 - CONCLUSION: 1. Right pleural effusion with consolidation right lung base, right middle lobe and lingula may represent pneumonia. 2. There are gas bubbles with fluid collections in the right perihepatic space in addition to subcapsular fluid collection all of which could be related to placement of transhepatic percutaneous biliary external/internal drain. 3. There are cystic masses in the body and head of the pancreas and a solid mass may be present in the head of the pancreas with slight dilatation of the pancreatic duct. Mary Jane Garcia MD Objective Remarks GENERAL: This is a well-nourished, well-developed patient, in no apparent distress. CARDIOVASCULAR: Regular rate and rhythm without murmurs, gallops, or rubs. RESPIRATORY: Clear to auscultation. Breath sounds equal bilaterally. No wheezes , rales, or rhonchi. GASTROINTESTINAL: Abdomen soft, non-tender, nondistended. Normal active bowel sounds some possible induration around site of biliary drain, abdomen is tender to palpation at RUQ MUSCULOSKELETAL: no c/c/e NEURO: Alert & Oriented x4 to person, place, time, situation. 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 - appreciate input from Palliative Service - oxycodone 15mg q4h, morphine 4mgIV if NO pain relief 1 hour after receiving oxycodone - Case d/w Dr. Lee Pain Mgmt (05/15) - I had arranged for celiac plexus [facility] block at [facility] with Dr. Lee on 05/18/17 - Pt/daughter request that we hold off on nerve block. - Will hopefully have external biliary drain removed on Thursday by Interventional Radiology - If pt remains painful after external biliary drain has been removed, then pt/ daughter would likely be agreeable with proceeding with celiac nerve block - Dr. Lee indicated that he would be available to do the procedure Thu- next week (05/18 - 05/21/17) - DVT prophylaxis - Case d/w Dr. Raudel Rodriguez (05/14/16). Dr. Rodriguez recommends that external biliary drain remain in place for approximately another 5d to avoid biloma. - Dr. Rodriguez met with pt/daughter (05/14) to explained continued need for external biliary drain. - Case d/w Dr. Cody Cardenas (05/14/16) - CP has authorized second opinion at [facility], outpt - This was d/w [facility] Case Mgmt (05/15), and pt can have imaging studies at [facility]. - Case reviewed with Dr. Cedeno (05/15) - Dr. Cedeno recommends Abdominal MRI with/without contrast. Pt/daughter would prefer for study to be completed at [facility] - Dr. Cedeno feels that pt may be a candidate for surgical resection. - Case d/w IR, Dr. Francois (05/17/17) - will obtain repeat CT abd/pelivs (05/18/17) - Possible removal of external biliary drain (05/18/17) - will review case with IR after CT abd/pelvis - repeat CBC in AM - consider stopping zosyn in next 1-2 days (2) Pneumonia ICD Codes: J18.9 - Pneumonia, unspecified organism Status: Acute Plan: - doubt pneumonia - There is NO fever - pt's WBC 34.6 (05/11), 20.9 (05/12), 12.6 (05/13), 14.4 (05/14) - continue zosyn - duonebs prn - robitussing with codeine prn - I do NOT believe that pt is septic at this time - thoracentesis, right thorax (05/13) 550ml fluid, likely exudate - pleural fluid gram stain (05/13) no WBC, no organisms (3) Abdominal pain ICD Codes: R10.9 - Unspecified abdominal pain Status: Acute Plan: - recent placement of biliary drain 04/2017 - case d/w IR, Dr. Francois - possibly some residual hematoma related to procedure. - see above (4) Pleural effusion on right ICD Codes: J90 - Pleural effusion, not elsewhere classified Status: Acute Plan: - see above Problem Qualifiers (1) Pneumonia: Qualified Codes: J18.9 - Pneumonia, unspecified organism (2) Abdominal pain: Qualified Codes: R10.11 - Right upper quadrant pain Margarito Jackson DO May 17, 2017 16:16
[2017-05-17 20:00] VITALS: BP 96/53; PULSE 85; RESP 16; TEMP 96.1; O2SAT 96
[2017-05-17] MEDS: TEMAZEPAM 15 MG CAP PO PRN (21:29)
[2017-05-17] MEDS: RESP: ALBUTEROL 2.5 MG/IPRATROPIUM 0.5 MG NEB (PRN) NEB (21:43)
[2017-05-18] VITALS (7 sets, daily range): BP systolic 99–126; BP diastolic 58–74; PULSE 86–98; RESP 16–21; TEMP 96.6–98.7; O2SAT 91–97
[2017-05-18] MEDS: guaiFENesin/CODEINE SYRUP 200 MG/20 MG/10 ML CUP PO PRN (00:07)
[2017-05-18] MEDS: PIPERACIL-TAZO 3.375 GM PREMIX 50 ML IV SCH ×4 (00:24→17:32)
[2017-05-18] MEDS: MORPHINE SULFATE 2 MG/ML INJ IV PRN ×2 (00:27→10:01)
[2017-05-18 07:30] LABS: AUTOMATED NEUTROPHIL # 8.3 TH/MM3 (1.8-7.7); BASOPHIL # 0.1 TH/MM3 (0-0.2); BASOPHIL % 1.1 % (0.0-2.0); EOSINOPHIL # 0.4 TH/MM3 (0-0.4); HEMATOCRIT 30.8 % (35.0-46.0); HEMOGLOBIN 10.7 GM/DL (11.6-15.3); LYMPH % 17.3 % (9.0-44.0); MEAN CORPUSCULAR HEMOGLOBIN 29.6 PG (27.0-34.0); MEAN CORPUSCULAR HGB CONC 34.9 % (32.0-36.0); MEAN PLATELET VOLUME 6.8 FL (7.0-11.0); MONO % 7.7 % (0.0-8.0); MONOCYTE # 0.9 TH/MM3 (0-0.9); NEUT % 70.9 % (16.0-70.0); PLATELET COUNT 823 TH/MM3 (150-450); RED BLOOD COUNT 3.62 MIL/MM3 (4.00-5.30); RED CELL DISTRIBUTION WIDTH 13.1 % (11.6-17.2); WHITE BLOOD COUNT 11.8 TH/MM3 (4.0-11.0)
[2017-05-18 07:32] LABS: INTERNATIONAL NORMALIZED RATIO 1.7 RATIO; PROTHROMBIN TIME - PATIENT 17.5 SEC (9.8-11.6)
--- NOTE | 2017-05-18 08:16 | HHI.PR ---
Subjective Remarks Patient's daughter reports that patient had a, "horrific night." Patient was unable to sleep due to pain of 12/18. Pain located mostly in the RUQ drain site. Objective Vitals Vital Signs Date Time Temp Pulse Resp B/P (MAP) Pulse Ox O2 Delivery O2 Flow Rate FiO2 05/18/17 07:47 97.1 86 20 99/72 (81) 96 05/18/17 00:00 96.6 91 16 116/59 (78) 93 05/17/17 20:00 96.1 85 16 96/53 (67) 96 05/17/17 16:00 97.1 87 17 117/73 (88) 95 05/17/17 12:00 96.4 85 17 113/64 (80) 95 05/18/17 05/18/17 05/19/17 15:00 23:00 07:00 Intake Total 0 ml Balance 0 ml Intake Oral 0 ml Result Diagram: 05/18/17 0645 05/17/17 0635 Other Results Laboratory Tests Test 05/16/17 09:42 05/17/17 06:35 05/18/17 06:45 White Blood Count 19.6 TH/MM3 16.6 TH/MM3 11.8 TH/MM3 Red Blood Count 3.78 MIL/MM3 3.53 MIL/MM3 3.62 MIL/MM3 Hemoglobin 10.8 GM/DL 10.1 GM/DL 10.7 GM/DL Hematocrit 32.1 % 29.9 % 30.8 % Mean Corpuscular Volume 84.9 FL 84.7 FL 85.0 FL Mean Corpuscular Hemoglobin 28.4 PG 28.7 PG 29.6 PG Mean Corpuscular Hemoglobin Concent 33.5 % 33.9 % 34.9 % Red Cell Distribution Width 13.0 % 13.2 % 13.1 % Platelet Count 811 TH/MM3 730 TH/MM3 823 TH/MM3 Mean Platelet Volume 6.8 FL 6.9 FL 6.8 FL Neutrophils (%) (Auto) 81.4 % 79.3 % 70.9 % Lymphocytes (%) (Auto) 9.9 % 11.8 % 17.3 % Monocytes (%) (Auto) 7.1 % 6.7 % 7.7 % Eosinophils (%) (Auto) 1.1 % 1.4 % 3.0 % Basophils (%) (Auto) 0.5 % 0.8 % 1.1 % Neutrophils # (Auto) 16.0 TH/MM3 13.2 TH/MM3 8.3 TH/MM3 Lymphocytes # (Auto) 1.9 TH/MM3 2.0 TH/MM3 2.0 TH/MM3 Monocytes # (Auto) 1.4 TH/MM3 1.1 TH/MM3 0.9 TH/MM3 Eosinophils # (Auto) 0.2 TH/MM3 0.2 TH/MM3 0.4 TH/MM3 Basophils # (Auto) 0.1 TH/MM3 0.1 TH/MM3 0.1 TH/MM3 CBC Comment DIFF FINAL DIFF FINAL DIFF FINAL Differential Comment Blood Urea Nitrogen 8 MG/DL Creatinine 0.65 MG/DL Random Glucose 128 MG/DL Total Protein 7.4 GM/DL Albumin 2.1 GM/DL Calcium Level 8.7 MG/DL Alkaline Phosphatase 268 U/L Aspartate Amino Transf (AST/SGOT) 23 U/L Alanine Aminotransferase (ALT/SGPT) 30 U/L Total Bilirubin 0.8 MG/DL Sodium Level 136 MEQ/L Potassium Level 4.4 MEQ/L Chloride Level 98 MEQ/L Carbon Dioxide Level 31.5 MEQ/L Anion Gap 7 MEQ/L Estimat Glomerular Filtration Rate 91 ML/MIN Prothrombin Time 17.5 SEC Prothromb Time International Ratio 1.7 RATIO Imaging Last Impressions Thoracentesis Ultrasound 05/13/17 0000 Signed Impressions: Service Date/Time: Saturday, May 13, 2017 08:38 - CONCLUSION: Uncomplicated ultrasound guided right thoracentesis. Brenden Sanchez MD Chest X-Ray 05/13/17 0000 Signed Impressions: Service Date/Time: Saturday, May 13, 2017 09:49 - CONCLUSION: 1. No evidence of pneumothorax following thoracentesis. Dionte Francois MD Abdomen/Pelvis CT 05/11/17 1627 Signed Impressions: Service Date/Time: Thursday, May 11, 2017 18:01 - CONCLUSION: 1. Right pleural effusion with consolidation right lung base, right middle lobe and lingula may represent pneumonia. 2. There are gas bubbles with fluid collections in the right perihepatic space in addition to subcapsular fluid collection all of which could be related to placement of transhepatic percutaneous biliary external/internal drain. 3. There are cystic masses in the body and head of the pancreas and a solid mass may be present in the head of the pancreas with slight dilatation of the pancreatic duct. Mary Jane Garcia MD Objective Remarks GENERAL: This is a well-nourished, well-developed patient, in no apparent distress. CARDIOVASCULAR: Regular rate and rhythm without murmurs, gallops, or rubs. RESPIRATORY: Clear to auscultation. Breath sounds equal bilaterally. No wheezes , rales, or rhonchi. GASTROINTESTINAL: Abdomen soft, non-tender, nondistended. Normal active bowel sounds some possible induration around site of biliary drain, abdomen is tender to palpation at RUQ MUSCULOSKELETAL: no c/c/e NEURO: Alert & Oriented x4 to person, place, time, situation. 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 - appreciate input from Palliative Service - oxycodone 15mg q4h, morphine 4mgIV if NO pain relief 1 hour after receiving oxycodone - Case d/w Dr. Lee Pain Mgmt (05/15) - I had arranged for celiac plexus nerve block at [place] with Dr. Lee on 05/18/17 - Pt/daughter request that we hold off on nerve block. - Will hopefully have external biliary drain removed on Thursday by Interventional Radiology - If pt remains painful after external biliary drain has been removed, then pt/ daughter would likely be agreeable with proceeding with celiac nerve block - Dr. Lee indicated that he would be available to do the procedure Thu- next week (05/18 - 05/21/17) - DVT prophylaxis - Case d/w Dr. Raudel Rodriguez (05/14/16). Dr. Rodriguez recommends that external biliary drain remain in place for approximately another 5d to avoid biloma. - Dr. Rodriguez met with pt/daughter (05/14) to explained continued need for external biliary drain. - Case d/w Dr. Cody Cardenas (05/14/16) - CP has authorized second opinion at [facility], outpt - This was d/w [facility] Case Mgmt (05/15), and pt can have imaging studies at [facility]. - Case reviewed with Dr. Cedeno (05/15) - Dr. Cedeno recommends Abdominal MRI with/without contrast. Pt/daughter would prefer for study to be completed at [facility] - Dr. Cedeno feels that pt may be a candidate for surgical resection. - Case d/w IR, Dr. Francois (05/17/17) - CT abd/pelivs (05/18/17) pending - Possible removal of external biliary drain (05/18/17) - will review case with IR after CT abd/pelvis - repeat CBC in AM - consider stopping zosyn in next 1-2 days -05/18/17 - Morphine SR 15 mg BID DC'd 05/18 - Fentanyl patch increased to 75 mcg (2) Pneumonia ICD Codes: J18.9 - Pneumonia, unspecified organism Status: Acute Plan: - doubt pneumonia - There is NO fever - pt's WBC 34.6 (05/11), 20.9 (1/2), 12.6 (05/13), 14.4 (05/14) - continue zosyn - duonebs prn - robitussing with codeine prn - I do NOT believe that pt is septic at this time - thoracentesis, right thorax (05/13) 550ml fluid, exudate - pleural fluid gram stain (05/13) no WBC, no organisms (3) Abdominal pain ICD Codes: R10.9 - Unspecified abdominal pain Status: Acute Plan: - recent placement of biliary drain 04/2017 - case d/w IR, Dr. Francois - possibly some residual hematoma related to procedure. - see above (4) Pleural effusion on right ICD Codes: J90 - Pleural effusion, not elsewhere classified Status: Acute Plan: - see above Assessment and Plan Patient examined. Assessment and plan formulated with Elida Tanner PA-C. I agree with the above. pancreatic ca with biliary obstruction subcapsular hematoma lft trending down. wbc down to 11 going for ext drain removal today long talk with pt/daughter. they are ok with stopping long acting morphine and going up on fentanyl. will keep immediate release prn pain meds. Problem Qualifiers (1) Pneumonia: Qualified Codes: J18.9 - Pneumonia, unspecified organism (2) Abdominal pain: Qualified Codes: R10.11 - Right upper quadrant pain Elida Tanner May 18, 2017 08:15 Mich Mendoza MD May 18, 2017 13:09
--- NOTE | 2017-05-18 09:46 | RADRPT ---
EXAM DATE/TIME: 05/18/2017 08:28 [place] COMPARISON: CT ABDOMEN & PELVIS W CONTRAST, May 11, 2017, 18:01. INDICATIONS : Reevaluate swelling at biliary drain site ORAL CONTRAST: No oral contrast ingested. RADIATION DOSE: 6.64 CTDIvol (mGy) MEDICAL HISTORY : None SURGICAL HISTORY : section. Cholecystectomy. ENCOUNTER: Subsequent ACUITY: 1 week PAIN SCALE: 5/10 LOCATION: Bilateral Abdomen TECHNIQUE: Volumetric scanning of the abdomen and pelvis was performed. Using automated exposure control and ad justment of the mA and/or kV according to patient size, radiation dose was kept as low as reasonably achievable to obtain optimal diagnostic quality images. DICOM format image data is available electro nically for review and comparison. FINDINGS: Minimal parenchymal changes right base. Internal, external drain in good position with 2.5 cm subcapsular hematoma. This contains small amou nt air. Spleen adrenals kidneys unremarkable. Mass is again seen in the head of the pancreas. There is atelectatic adenopathy Pelvic contents are unremarkable. CONCLUSION: Subcapsular hematoma on the right. This is becoming more organized and contains small amount of air as expected. Drain in good position Improvement right lung base. No other significant change. Giovanni Rodriguez MD FACR on May 18, 2017 at 9:38 Board Certified Radiologist. This report was verified electronically.
[2017-05-18] MEDS: DOCUSATE SODIUM 50 MG/SENNA 8.6 MG TAB PO SCH ×2 (09:51→21:55)
[2017-05-18] MEDS: MORPHINE SULFATE 15 MG CONTROLLED RELEASE TAB PO SCH (09:52)
[2017-05-18] MEDS: SODIUM CHLORIDE 0.9% FLUSH 10 ML FLUSH IV FLUSH SCH ×2 (09:52→21:00)
--- NOTE | 2017-05-18 11:05 | PD.ONC.PN ---
Subjective Subjective Remarks Afebrile overnight. (late entry, patient seen at ~11:10AM) Patient resting in bed with mother at bedside. Eager to know if she will have biliary drain internalized today. Also eager to know results of CT she had this AM. Pain still not well controlled, requiring IV morphine for breakthrough. Objective Data Date Time Temp Pulse Resp B/P (MAP) Pulse Ox O2 Delivery O2 Flow Rate FiO2 05/18/17 07:47 97.1 86 20 99/72 (81) 96 05/18/17 00:00 96.6 91 16 116/59 (78) 93 05/17/17 20:00 96.1 85 16 96/53 (67) 96 05/17/17 16:00 97.1 87 17 117/73 (88) 95 05/17/17 12:00 96.4 85 17 113/64 (80) 95 05/18/17 05/18/17 05/18/17 06:59 14:59 22:59 Intake Total 0 ml 0 ml Output Total 102 ml Balance -102 ml 0 ml Result Diagram: 05/18/17 0645 05/17/17 0635 Laboratory Results Laboratory Tests Test 05/18/17 06:45 White Blood Count 11.8 TH/MM3 Red Blood Count 3.62 MIL/MM3 Hemoglobin 10.7 GM/DL Hematocrit 30.8 % Mean Corpuscular Volume 85.0 FL Mean Corpuscular Hemoglobin 29.6 PG Mean Corpuscular Hemoglobin Concent 34.9 % Red Cell Distribution Width 13.1 % Platelet Count 823 TH/MM3 Mean Platelet Volume 6.8 FL Neutrophils (%) (Auto) 70.9 % Lymphocytes (%) (Auto) 17.3 % Monocytes (%) (Auto) 7.7 % Eosinophils (%) (Auto) 3.0 % Basophils (%) (Auto) 1.1 % Neutrophils # (Auto) 8.3 TH/MM3 Lymphocytes # (Auto) 2.0 TH/MM3 Monocytes # (Auto) 0.9 TH/MM3 Eosinophils # (Auto) 0.4 TH/MM3 Basophils # (Auto) 0.1 TH/MM3 CBC Comment DIFF FINAL Differential Comment Prothrombin Time 17.5 SEC Prothromb Time International Ratio 1.7 RATIO Imaging Studies Last 24 hours Impressions Abdomen/Pelvis CT 05/18/17 0800 Signed Impressions: Service Date/Time: Thursday, May 18, 2017 08:28 - CONCLUSION: Subcapsular hematoma on the right. This is becoming more organized and contains small amount of air as expected. Drain in good position Improvement right lung base. No other significant change. Giovanni Rodriguez MD FACR Administered Medications Medications (Trade) Dose Ordered Sig/Rahul Route PRN Reason Start Time Stop Time Status Last Admin Dose Admin Morphine Sulfate (Oramorph Sr) 15 mg BID PO 05/12/17 09:00 05/18/17 09:52 Guaifenesin/ Codeine Phosphate (Robitussin Ac 200-20 Mg/10 ml Liq) 10 ml Q6H PRN PO COUGH 05/11/17 21:30 05/18/17 00:07 Piperacillin Sod/ Tazobactam Sod 50 ml @ 100 mls/hr Q6HR IV 05/12/17 00:00 05/18/17 05:54 Sodium Chloride (NS Flush) 2 ml UNSCH PRN IV FLUSH FLUSH AFTER USING IV ACCESS 05/11/17 21:45 05/14/17 15:24 Sodium Chloride (NS Flush) 2 ml BID IV FLUSH 05/12/17 09:00 05/18/17 09:52 Ondansetron HCl (Zofran Inj) 4 mg Q6H PRN IVP NAUSEA OR VOMITING 05/11/17 21:45 05/15/17 14:15 Senna/Docusate Sodium (Elayne-Colace) 1 tab BID PO 05/12/17 09:00 05/18/17 09:51 Magnesium Hydroxide (Milk Of Magnesia Liq) 30 ml Q12H PRN PO Mild constipation 05/11/17 21:45 05/16/17 08:53 Lactulose (Lactulose Liq) 30 ml DAILY PRN PO SEVERE CONSITIPATION 05/11/17 21:45 05/16/17 16:37 Albuterol/ Ipratropium (Duoneb Neb) 1 ampule Q8HR WHILE AWAKE NEB PRN NEB SHORTNESS OF BREATH 05/11/17 22:00 05/17/17 21:43 Morphine Sulfate (Morphine Inj) 4 mg Q3H PRN IV BREAKTHROUGH PAIN 05/12/17 14:45 05/18/17 10:01 Fentanyl (Duragesic 50 Mcg Patch.72 Hr) 1 patch Q3D T-DERMAL 05/12/17 15:00 05/15/17 14:09 Miscellaneous Information 1 Q3D T-DERMAL 05/12/17 15:00 05/15/17 15:00 Oxycodone HCl (Roxicodone) 15 mg Q4H PRN PO PAIN SCALE 4 TO 10 05/15/17 11:15 05/18/17 06:30 Temazepam (Restoril) 15 mg HS PRN PO INSOMNIA 05/16/17 18:15 05/17/17 21:29 Objective Remarks GENERAL: Pleasant middle aged female, sitting up in bed. she appears in nad. SKIN: Warm and dry. HEAD: Atraumatic. Normocephalic. EYES: No injection or drainage. ENT: No nasal bleeding or discharge. NECK: Trachea midline. CARDIOVASCULAR: Regular rate and rhythm. RESPIRATORY: Clear to auscultation. Breath sounds equal bilaterally. GASTROINTESTINAL: Abdomen mildly tender along epigastrium and very tender around biliary drain. no erythema or purulent drainage noted. MUSCULOSKELETAL: Extremities without clubbing, cyanosis, or edema NEUROLOGICAL: Awake and alert. normal speech. Assessment/Plan Problem List: (1) Pancreatic adenocarcinoma ICD Codes: C25.9 - Malignant neoplasm of pancreas, unspecified Plan: +3-cm x 2.6-cm mass in the head of the pancreas and 1.6-cm mass in the tail of the pancreas. common bile duct was dilated with an internal/external drain. --appears to be a localized and resectable cancer --will need to have an MRI of the abdomen done to assess for any regional lymphadenopathy. Regional adenopathy was not apparent on the CT scan or the endoscopic ultrasound. (requesting to have done at [facility]) ++having significant amount of pain around her biliary drain and there is some induration and concern for abscess. --seen by surgery during this admission --patient and her daughter have requested no further workup--> they would like to have all workup completed at [facility]. (2) Pleural effusion ICD Codes: J90 - Pleural effusion, not elsewhere classified Plan: --s/p thoracentesis on 05/13/17, cytology results indicate no malignant cells. I reviewed this with the patient and her daughter on 05/18 Assessment 67y/o female with recently diagnosed pancreatic adenocarcinoma. HPI (from initial consult) Initially presented with abdominal discomfort and jaundice. found to have biliary obstruction. unable to place biliary stent so had biliary tube placed by Dr. Aguirre. had endoscopic ultrasound and the biopsy confirmed an invasive moderately differentiated adenocarcinoma. CT abdomen and pelvis showed right-sided pleural effusion, consolidation of right lung base, right middle lobe and lingula. +gas bubbles and fluid collection at the right perihepatic space in addition to subcapsular fluid collection. There were cystic masses in the body and head of the pancreas and a solid mass was also seen in the head of the pancreas with dilatation of the pancreatic duct --does not want to complete any further workup here at [place] including evaluation by Surgery. --would like to pursue further treatment at [place]. Plan 1. reviewed CT results from this AM with patient/daughter. 2. reviewed cytology results with patient and daughter. 3. discussed importance of prompt follow up at [facility]. Discussed that, if she is a candidate for resection, there is a short window of time available for resection and that, if the plan is to be seen at [facility], time is of the essence. Patient and daughter expressed understanding/agreement and state that her records have already been sent over and are being reviewed by the physicians at [facility]. 4. discussed general principles of pain management, using long-acting and short acting pain medications and the theory behind that. Ms. Lemos and her daughter seemed to already understand this for the most part d/t their previous conversations with palliative care and the primary team. Attending Statement The exam, history, and the medical decision-making described in the above note were completed with the assistance of the mid-level provider. I reviewed and agree with the findings presented. I attest that I had a [id number] encounter with the patient on the same day, and personally performed and documented my assessment and findings in the medical record. Nancy Rueda May 18, 2017 11:05 Christopher Cedeno MD May 18, 2017 22:56
[2017-05-18] MEDS: REMOVE OLD FENTANYL PATCH T-DERMAL SCH (13:00)
[2017-05-18] MEDS ORDERED: MIDAZOLAM HCL 2 MG/2 ML VIAL ONE ×4 (13:27→15:08)
[2017-05-18] MEDS ORDERED: fentaNYL 75 MCG/HR PATCH T-DERMAL SCH (15:00)
[2017-05-18] MEDS ORDERED: IOHEXOL 350 MG/ML 50 ML BTL (for RAD DIAG) OTHER ONE (15:32)
--- NOTE | 2017-05-18 15:44 | PD.RAD ---
Post Procedure Progress Note Pre Procedure Diagnosis: (1) Perihepatic abscess (2) Pancreatic adenocarcinoma (3) Pancreatic mass (4) Common biliary duct obstruction Post Procedure Diagnosis: (1) Perihepatic abscess (2) Common biliary duct obstruction (3) Pain (4) Pancreatic mass (5) Leukocytosis (6) Pancreatic adenocarcinoma Procedure Date: May 18, 2017 Supervising Radiologist: Alan Aguirre Proceduralist/Assist: RT Laura(R), RT Macario(R) Anesthesia: Local, Analgesia, Conscious Sedation Plan of Activity Patient to Unit: ROPU Patient Condition: Good See PACS Report for procedural detail/treatment Drainage Procedure Procedure 1 Imaging Guidance: Fluoroscopy Procedure Type: Biliary Drainage Procedure: Conversion (Had biliary drain) Fluid Description: Yellow Procedure 2 Procedure Type: Abscess Drainage (Perihepatic) Fluid Description: Cloudy, Purulent, Other (orange) Procedure 3 Imaging Guidance: Fluoroscopy Procedure Type: Biliary Drainage (stent) Procedure: Removal Findings: Silastic stent poorly functioning. Stent removed. I/E drain placed Alan Aguirre MD May 18, 2017 15:44
[2017-05-18] MEDS: fentaNYL 75 MCG/HR PATCH T-DERMAL SCH (17:38)
[2017-05-18] MEDS: ONDANSETRON HCL 4 MG/2 ML VIAL IVP PRN (17:41)
[2017-05-18] MEDS: RESP: ALBUTEROL 2.5 MG/IPRATROPIUM 0.5 MG NEB (PRN) NEB (20:04)
[2017-05-19] VITALS: BP 110/62; PULSE 92; RESP 18; TEMP 97.7; O2SAT 94
[2017-05-19] MEDS: PIPERACIL-TAZO 3.375 GM PREMIX 50 ML IV SCH ×4 (00:33→17:50)
[2017-05-19 08:00] VITALS: BP 100/58; PULSE 82; RESP 20; TEMP 97.1; O2SAT 95
[2017-05-19] MEDS: DOCUSATE SODIUM 50 MG/SENNA 8.6 MG TAB PO SCH ×2 (09:28→19:25)
[2017-05-19] MEDS: SODIUM CHLORIDE 0.9% FLUSH 10 ML FLUSH IV FLUSH SCH ×2 (09:28→21:39)
[2017-05-19 10:11] LABS: BASOPHIL # 0.1 TH/MM3 (0-0.2); BASOPHIL % 1.3 % (0.0-2.0); EOSINOPHIL # 0.2 TH/MM3 (0-0.4); EOSINOPHIL % 2.1 % (0.0-4.0); HEMATOCRIT 31.3 % (35.0-46.0); HEMOGLOBIN 10.6 GM/DL (11.6-15.3); LYMPH % 9.6 % (9.0-44.0); LYMPHOCYTE # 1.1 TH/MM3 (1.0-4.8); MEAN CELL VOLUME 83.9 FL (80.0-100.0); MEAN CORPUSCULAR HEMOGLOBIN 28.4 PG (27.0-34.0); MEAN CORPUSCULAR HGB CONC 33.9 % (32.0-36.0); MEAN PLATELET VOLUME 6.8 FL (7.0-11.0); MONO % 5.9 % (0.0-8.0); MONOCYTE # 0.6 TH/MM3 (0-0.9); NEUT % 81.1 % (16.0-70.0); PLATELET COUNT 774 TH/MM3 (150-450); RED BLOOD COUNT 3.73 MIL/MM3 (4.00-5.30); RED CELL DISTRIBUTION WIDTH 13.1 % (11.6-17.2); WHITE BLOOD COUNT 11.1 TH/MM3 (4.0-11.0)
--- NOTE | 2017-05-19 11:19 | HHI.PR ---
Subjective Remarks Patient reports pain has decreased with to change in pain mediations ( increasing fentanyl patch to 75 mcg and DC morphine SR 15 BID) and external drain exchange Patient was able to sleep better last night Patient s/p biliary drain conversion, abscess drainage and removal of biliary stent. 05/19/[address] Aguirre Objective Vitals Vital Signs Date Time Temp Pulse Resp B/P (MAP) Pulse Ox O2 Delivery O2 Flow Rate FiO2 05/19/17 11:00 18 05/19/17 08:00 97.1 82 20 100/58 (72) 95 05/19/17 00:00 97.7 92 18 110/62 (78) 94 05/18/17 20:00 98.2 91 18 103/60 (74) 91 05/18/17 16:15 89 16 124/74 (91) 97 05/18/17 15:45 98 16 123/72 (89) 97 05/18/17 15:30 98.7 92 16 126/74 (91) 91 05/18/17 12:00 98.0 86 21 109/58 (75) 95 05/19/17 05/19/17 05/20/17 14:59 22:59 06:59 Intake Total 240 ml Output Total 100 ml Balance 140 ml Intake Oral 240 ml Drainage Total 100 ml Result Diagram: 05/19/1725 05/17/17 0635 Other Results Laboratory Tests Test 05/17/17 06:35 05/18/17 06:45 05/19/17 09:25 White Blood Count 16.6 TH/MM3 11.8 TH/MM3 11.1 TH/MM3 Red Blood Count 3.53 MIL/MM3 3.62 MIL/MM3 3.73 MIL/MM3 Hemoglobin 10.1 GM/DL 10.7 GM/DL 10.6 GM/DL Hematocrit 29.9 % 30.8 % 31.3 % Mean Corpuscular Volume 84.7 FL 85.0 FL 83.9 FL Mean Corpuscular Hemoglobin 28.7 PG 29.6 PG 28.4 PG Mean Corpuscular Hemoglobin Concent 33.9 % 34.9 % 33.9 % Red Cell Distribution Width 13.2 % 13.1 % 13.1 % Platelet Count 730 TH/MM3 823 TH/MM3 774 TH/MM3 Mean Platelet Volume 6.9 FL 6.8 FL 6.8 FL Neutrophils (%) (Auto) 79.3 % 70.9 % 81.1 % Lymphocytes (%) (Auto) 11.8 % 17.3 % 9.6 % Monocytes (%) (Auto) 6.7 % 7.7 % 5.9 % Eosinophils (%) (Auto) 1.4 % 3.0 % 2.1 % Basophils (%) (Auto) 0.8 % 1.1 % 1.3 % Neutrophils # (Auto) 13.2 TH/MM3 8.3 TH/MM3 9.0 TH/MM3 Lymphocytes # (Auto) 2.0 TH/MM3 2.0 TH/MM3 1.1 TH/MM3 Monocytes # (Auto) 1.1 TH/MM3 0.9 TH/MM3 0.6 TH/MM3 Eosinophils # (Auto) 0.2 TH/MM3 0.4 TH/MM3 0.2 TH/MM3 Basophils # (Auto) 0.1 TH/MM3 0.1 TH/MM3 0.1 TH/MM3 CBC Comment DIFF FINAL DIFF FINAL DIFF FINAL Differential Comment Blood Urea Nitrogen 8 MG/DL Creatinine 0.65 MG/DL Random Glucose 128 MG/DL Total Protein 7.4 GM/DL Albumin 2.1 GM/DL Calcium Level 8.7 MG/DL Alkaline Phosphatase 268 U/L Aspartate Amino Transf (AST/SGOT) 23 U/L Alanine Aminotransferase (ALT/SGPT) 30 U/L Total Bilirubin 0.8 MG/DL Sodium Level 136 MEQ/L Potassium Level 4.4 MEQ/L Chloride Level 98 MEQ/L Carbon Dioxide Level 31.5 MEQ/L Anion Gap 7 MEQ/L Estimat Glomerular Filtration Rate 91 ML/MIN Prothrombin Time 17.5 SEC Prothromb Time International Ratio 1.7 RATIO Imaging Last Impressions Thoracentesis Ultrasound 05/13/17 0000 Signed Impressions: Service Date/Time: Saturday, May 13, 2017 08:38 - CONCLUSION: Uncomplicated ultrasound guided right thoracentesis. Brenden Sanchez MD Chest X-Ray 05/13/17 0000 Signed Impressions: Service Date/Time: Saturday, May 13, 2017 09:49 - CONCLUSION: 1. No evidence of pneumothorax following thoracentesis. Dionte Francois MD Abdomen/Pelvis CT 05/11/17 1627 Signed Impressions: Service Date/Time: Thursday, May 11, 2017 18:01 - CONCLUSION: 1. Right pleural effusion with consolidation right lung base, right middle lobe and lingula may represent pneumonia. 2. There are gas bubbles with fluid collections in the right perihepatic space in addition to subcapsular fluid collection all of which could be related to placement of transhepatic percutaneous biliary external/internal drain. 3. There are cystic masses in the body and head of the pancreas and a solid mass may be present in the head of the pancreas with slight dilatation of the pancreatic duct. Mary Jane Garcia MD Objective Remarks GENERAL: This is a well-nourished, well-developed patient, in no apparent distress. CARDIOVASCULAR: Regular rate and rhythm RESPIRATORY: Clear to auscultation. Breath sounds equal bilaterally. GASTROINTESTINAL: Abdomen soft, nondistended. Normal active bowel sounds some induration around site of biliary drain, abdomen is tender to palpation at RUQ- improving from yesterday NEURO: Alert & Oriented x4 to person, place, time, situation. Moves all ext x4 A/P Problem List: (1) Pancreatic mass ICD Codes: K86.9 - Disease of pancreas, unspecified Status: Chronic Plan: - cogmt with Oncology, Palliative Medicine - CT abd (05/12) --> Head of Pancrease Mass - pathology from [facility] (04/29/17) --> adenocarcinoma - Pt/family arranging appointment at [facility] for after hospital discharge - Duragesic increased to 50mcg daily - Pt recently started on BID morphine 15mg daily at ER, I would prefer to eliminate this if I can get her pain controlled with Duragesic - single agent. - appreciate input from Palliative Service - oxycodone 15mg q4h, morphine 4mgIV if NO pain relief 1 hour after receiving oxycodone - Case d/w Dr. Lee Pain Mgmt (05/15) - I had arranged for celiac plexus nerve block at [facility] with Dr. Lee on 05/18/17 - Pt/daughter request that we hold off on nerve block. - Will hopefully have external biliary drain removed on Thursday by Interventional Radiology - If pt remains painful after external biliary drain has been removed, then pt/ daughter would likely be agreeable with proceeding with celiac nerve block - Dr. Lee indicated that he would be available to do the procedure Thu- next week (05/18 - 05/21/17) - DVT prophylaxis - Case d/w Dr. Raudel oRdriguez (05/14/16). Dr. Rodriguez recommends that external biliary drain remain in place for approximately another 5d to avoid biloma. - Dr. Rodriguez met with pt/daughter (05/14) to explained continued need for external biliary drain. - Case d/w Dr. Cody Cardenas (05/14/16) - CP has authorized second opinion at [facility], outpt - This was d/w [facility] Case Mgmt (05/15), and pt can have imaging studies at [facility]. - Case reviewed with Dr. Cedeno (05/15) - Dr. Cedeno recommends Abdominal MRI with/without contrast. Pt/daughter would prefer for study to be completed at [facility] - Dr. Cedeno feels that pt may be a candidate for surgical resection. - Case d/w IR, Dr. Francois (05/17/17) - CT abd/pelivs (05/18/17) pending - Possible removal of external biliary drain (05/18/17) - will review case with IR after CT abd/pelvis - repeat CBC in AM - consider stopping zosyn in next 1-2 days -05/18/17 - Morphine SR 15 mg BID DC'd 05/18 - Fentanyl patch increased to 75 mcg -05/19/17 - pain improved after biliary drain conversion, abscess drainage and removal of biliary stent. 05/19/[address] Aguirre, interventional radiology - WBC 11.1 - continue Zosyn - culture from 05/19 pending - Patient daughter requesting transfer to [facility] (2) Pneumonia ICD Codes: J18.9 - Pneumonia, unspecified organism Status: Acute Plan: - doubt pneumonia - There is NO fever - pt's WBC 34.6 (05/11), 20.9 (12), 12.6 (05/13), 14.4 (05/14) - continue zosyn - duonebs prn - robitussing with codeine prn - I do NOT believe that pt is septic at this time - thoracentesis, right thorax (05/13) 550ml fluid, exudate - pleural fluid gram stain (05/13) no WBC, no organisms (3) Abdominal pain ICD Codes: R10.9 - Unspecified abdominal pain Status: Acute Plan: - recent placement of biliary drain 04/2017 - case d/w IR, Dr. Frnacois - possibly some residual hematoma related to procedure. - see above (4) Pleural effusion on right ICD Codes: J90 - Pleural effusion, not elsewhere classified Status: Acute Plan: - see above Assessment and Plan Patient examined. Assessment and plan formulated with Elida Tanner PA-C. I agree with the above. adenoca diagnosed with cbd biopsies. pancreatic ca with biliary obstruction Pt had original int/ext drain then internal stent Then developed alot of abdomen pain and wbc of 34K yesterday found to have subcapsular abscess component originally felt to be all hematoma. drained about 40cc and internal stent removed cont abx. cx neg so far. Pt looks well today with pain control. ambulating. [facility] and she is approved for [facility]. I call [facility] transfer center and a hospitalist is reviewing her case for possible acceptance. l Problem Qualifiers (1) Pneumonia: Qualified Codes: J18.9 - Pneumonia, unspecified organism (2) Abdominal pain: Qualified Codes: R10.11 - Right upper quadrant pain Elida Tanner May 19, 2017 11:19 Mich Mendoza MD May 19, 2017 14:43
--- NOTE | 2017-05-19 11:47 | PD.ONC.PN ---
Subjective Subjective Remarks Afebrile overnight. Patient resting in bed with daughter at bedside. States pain is a bit better controlled today since increasing the Fentanyl patch yesterday. Has not required the IV morphine for breakthrough pain as often. Is also having regular bowel movements. Objective Data Date Time Temp Pulse Resp B/P (MAP) Pulse Ox O2 Delivery O2 Flow Rate FiO2 05/19/17 11:00 18 05/19/17 08:00 97.1 82 20 100/58 (72) 95 05/19/17 00:00 97.7 92 18 110/62 (78) 94 05/18/17 20:00 98.2 91 18 103/60 (74) 91 05/18/17 16:15 89 16 124/74 (91) 97 05/18/17 15:45 98 16 123/72 (89) 97 05/18/17 15:30 98.7 92 16 126/74 (91) 91 05/18/17 12:00 98.0 86 21 109/58 (75) 95 05/19/17 05/19/17 05/19/17 06:59 14:59 22:59 Intake Total 290 ml 240 ml Output Total 200 ml 100 ml Balance 90 ml 140 ml Result Diagram: 05/19/17 0925 05/17/17 0635 Laboratory Results Laboratory Tests Test 05/19/17 09:25 White Blood Count 11.1 TH/MM3 Red Blood Count 3.73 MIL/MM3 Hemoglobin 10.6 GM/DL Hematocrit 31.3 % Mean Corpuscular Volume 83.9 FL Mean Corpuscular Hemoglobin 28.4 PG Mean Corpuscular Hemoglobin Concent 33.9 % Red Cell Distribution Width 13.1 % Platelet Count 774 TH/MM3 Mean Platelet Volume 6.8 FL Neutrophils (%) (Auto) 81.1 % Lymphocytes (%) (Auto) 9.6 % Monocytes (%) (Auto) 5.9 % Eosinophils (%) (Auto) 2.1 % Basophils (%) (Auto) 1.3 % Neutrophils # (Auto) 9.0 TH/MM3 Lymphocytes # (Auto) 1.1 TH/MM3 Monocytes # (Auto) 0.6 TH/MM3 Eosinophils # (Auto) 0.2 TH/MM3 Basophils # (Auto) 0.1 TH/MM3 CBC Comment DIFF FINAL Differential Comment Culture Results Microbiology Date/Time Source Procedure Growth Status 05/18/17 14:05 Abscess Abdomen Gram Stain - Final Resulted 05/18/17 14:05 Abscess Abdomen Wound Culture Pending Resulted Administered Medications Medications (Trade) Dose Ordered Sig/Rahul Route PRN Reason Start Time Stop Time Status Last Admin Dose Admin Guaifenesin/ Codeine Phosphate (Robitussin Ac 200-20 Mg/10 ml Liq) 10 ml Q6H PRN PO COUGH 05/11/17 21:30 05/18/17 00:07 Piperacillin Sod/ Tazobactam Sod 50 ml @ 100 mls/hr Q6HR IV 05/12/17 00:00 05/19/17 09:29 Sodium Chloride (NS Flush) 2 ml UNSCH PRN IV FLUSH FLUSH AFTER USING IV ACCESS 05/11/17 21:45 05/14/17 15:24 Sodium Chloride (NS Flush) 2 ml BID IV FLUSH 05/12/17 09:00 05/19/17 09:28 Ondansetron HCl (Zofran Inj) 4 mg Q6H PRN IVP NAUSEA OR VOMITING 05/11/17 21:45 05/18/17 17:41 Senna/Docusate Sodium (Elayne-Colace) 1 tab BID PO 05/12/17 09:00 05/19/17 09:28 Magnesium Hydroxide (Milk Of Magnesia Liq) 30 ml Q12H PRN PO Mild constipation 05/11/17 21:45 05/16/17 08:53 Lactulose (Lactulose Liq) 30 ml DAILY PRN PO SEVERE CONSITIPATION 05/11/17 21:45 05/16/17 16:37 Albuterol/ Ipratropium (Duoneb Neb) 1 ampule Q8HR WHILE AWAKE NEB PRN NEB SHORTNESS OF BREATH 05/11/17 22:00 05/18/17 20:04 Morphine Sulfate (Morphine Inj) 4 mg Q3H PRN IV BREAKTHROUGH PAIN 05/12/17 14:45 05/18/17 10:01 Oxycodone HCl (Roxicodone) 15 mg Q4H PRN PO PAIN SCALE 4 TO 10 05/15/17 11:15 05/19/17 09:30 Temazepam (Restoril) 15 mg HS PRN PO INSOMNIA 05/16/17 18:15 05/17/17 21:29 Fentanyl (Duragesic 75 Mcg Patch.72 Hr) 1 patch Q3D T-DERMAL 05/18/17 13:00 05/18/17 17:38 Objective Remarks GENERAL: Middle aged female, sitting up in bed in nad. Daughter at bedside. SKIN: Warm and dry. HEAD: Atraumatic. Normocephalic. EYES: No injection or drainage. ENT: No nasal bleeding or discharge. NECK: Trachea midline. CARDIOVASCULAR: Regular rate and rhythm. RESPIRATORY: diminished at bases, occasional wheeze. GASTROINTESTINAL: Abdomen tender in epigastrium and around RUQ at site of percutaneous biliary drain. MUSCULOSKELETAL: Extremities without clubbing, cyanosis, or edema NEUROLOGICAL: Awake, alert. normal speech. no obvious focal deficit. Assessment/Plan Problem List: (1) Pancreatic adenocarcinoma ICD Codes: C25.9 - Malignant neoplasm of pancreas, unspecified Plan: +3-cm x 2.6-cm mass in the head of the pancreas and 1.6-cm mass in the tail of the pancreas. common bile duct was dilated with an internal/external drain. --appears to be a localized and resectable cancer --will need to have an MRI of the abdomen done to assess for any regional lymphadenopathy. Regional adenopathy was not apparent on the CT scan or the endoscopic ultrasound. (requesting to have done at [facility]) ++having significant amount of pain around her biliary drain and there is some induration and concern for abscess. --seen by surgery during this admission --patient and her daughter have requested no further workup--> they would like to have all workup completed at [facility]. 05/19: plan remains to follow up at [facility] for all treatment related to pancreatic cancer (2) Pleural effusion ICD Codes: J90 - Pleural effusion, not elsewhere classified Plan: --s/p thoracentesis on 05/13/17, cytology results indicate no malignant cells. I reviewed this with the patient and her daughter on 05/18 Assessment 67y/o female with recently diagnosed pancreatic adenocarcinoma. HPI (from initial consult) Initially presented with abdominal discomfort and jaundice. found to have biliary obstruction. unable to place biliary stent so had biliary tube placed by Dr. Aguirre. had endoscopic ultrasound and the biopsy confirmed an invasive moderately differentiated adenocarcinoma. CT abdomen and pelvis showed right-sided pleural effusion, consolidation of right lung base, right middle lobe and lingula. +gas bubbles and fluid collection at the right perihepatic space in addition to subcapsular fluid collection. There were cystic masses in the body and head of the pancreas and a solid mass was also seen in the head of the pancreas with dilatation of the pancreatic duct --does not want to complete any further workup here at [place] including evaluation by Surgery. --would like to pursue further treatment at [place]. Plan 1. continue pain management 2. antibiotics per primary team 3. follow up at [facility] for management of new diagnosis pancreatic adenocarcinoma. Nancy Rueda May 19, 2017 11:47
[2017-05-19 12:00] VITALS: BP 96/59; PULSE 90; RESP 20; TEMP 96.9; O2SAT 95
[2017-05-19] MEDS: ONDANSETRON HCL 4 MG/2 ML VIAL IVP PRN (13:54)
--- NOTE | 2017-05-19 14:56 | RADRPT ---
EXAM DATE/TIME: 05/18/2017 14:54 [place] COMPARISON: No previous studies available for comparison. INDICATIONS : Patient with history of pancreatic mass in need of internal/external biliary drain placement. MEDICAL HISTORY : HTN, Pancreatic cancer, GERD, COPD, Lung nodule, Bronchiectasis SURGICAL HISTORY : Pancreatic mass biopsy, Cholecystectomy, Colonoscopy, ERCP, Biliary stent ENCOUNTER: Subsequent ACUITY: 1 month PAIN SCORE: 0/10 FLUORO TIME: 32.5 minutes IMAGE SERIES: 4 SEDATION TIME: 80 minutes CONTRAST: 40 cc Omnipaque (iohexol) 350 MEDICATION(S): 1.) 9 mg midazolam (Versed) IV 2.) 450 mcg fentanyl (Sublimaze) IV DEVICE(S): 1.) 10 Panamanian X35CM Flexima internal/external biliary drain PROCEDURE : 1. Percutaneous cholangiogram 2. Loop snaring of a Silastic biliary stent. 3. Biliary stent placement 4. Percutaneous drainage of perihepatic fluid collection. The risks, benefits and alternatives to the procedure were explained and verbal and written consent w as obtained. The site was prepped in sterile fashion. Full sterile technique was used, including ca p, mask, sterile gloves and gown and a large sterile sheet. Hand hygiene and 2% chlorhexidine and/or betadine/alcohol prep was utilized per protocol for cutaneous antisepsis. The skin and subcutaneous tissues were infiltrated with local anesthetic solution. Percutaneous cholangiogram was performed to delineate the biliary tract. CBD, intra-and hepatic ducts are filled appropriately with very little contrast entering the small bowel. The Silastic stent plac ed previously and may be obstructed with some contrast passing around the stent into the duodenum. Th erefore, the catheter was exchanged over a wire and a 10 Panamanian side-port sheath advanced into the co llecting system. Multiple attempts were made to snare the proximal end of a Silastic stent however, t he side of the stent appeared to be embedded in the wall of the CBD and could not be successfully sna red. Therefore, Glidewire was exchanged for a stiff angled glide to facilitate placement of a 25 cm side-p ort sheath through the CBD into the duodenum. A 2.5 cm gooseneck snare was then used to secure the di stal end of the Silastic stent. The stent was then pulled into the sheath and removed from the biliar y tree. A over the wire, the side-port sheath was pulled back into the perihepatic space and position was confirmed with positive contrast. A second wire was advanced through the sheath and into the per ihepatic space to facilitate placement of the previously removed 10 Panamanian Wagner loop catheter. This w as placed in the perinephric space and the fluid aspirated. Approximately 40 cc of thick pink-fluid w as removed. A sample was sent to laboratory for analysis. The Wagner loop catheter was then removed fro m the perihepatic space. Stylette was advanced through the 10 Panamanian sheath and the device advanced b ack into the collecting system. Wire was redirected back into the duodenum to facilitate placement of a 10 Panamanian internal/external drain. Position was confirmed with positive contrast. Conscious sedation was performed with the prescribed dosages and duration as above in the presence of an independent trained radiology nurse to assist in the monitoring of the patient. EKG and oximetry remained stable throughout the procedure. The patient tolerated the procedure well and there were no complications. The patient was sent to post anesthesia recovery in stable condition. CONCLUSION: 1. Successful snare removal of the apparently obstructed Silastic biliary stent as detailed above. 2. Aspiration of approximately 40 cc of cloudy pinkish fluid from the perihepatic space. A fluid samp le was sent to laboratory for analysis. 3. Placement of a 10 Panamanian internal/external drain. Alan Aguirre MD on May 19, 2017 at 14:27 Board Certified Radiologist. This report was verified electronically.
[2017-05-19] MEDS: MORPHINE SULFATE 2 MG/ML INJ IV PRN ×2 (15:28→19:25)
[2017-05-19 16:00] VITALS: BP 117/59; PULSE 88; RESP 20; TEMP 98.2; O2SAT 95
[2017-05-19 20:00] VITALS: BP 104/59; PULSE 94; RESP 20; TEMP 97.2; O2SAT 94
[2017-05-20] VITALS: BP 119/59; PULSE 99; RESP 20; TEMP 98.6; O2SAT 93
[2017-05-20] MEDS: PIPERACIL-TAZO 3.375 GM PREMIX 50 ML IV SCH ×4 (01:07→16:16)
[2017-05-20] MEDS: ONDANSETRON HCL 4 MG/2 ML VIAL IVP PRN (04:55)
[2017-05-20 08:00] VITALS: BP 99/57; PULSE 78; RESP 16; TEMP 97.9; O2SAT 95
[2017-05-20] MEDS: DOCUSATE SODIUM 50 MG/SENNA 8.6 MG TAB PO SCH ×2 (08:30→20:52)
[2017-05-20] MEDS: SODIUM CHLORIDE 0.9% FLUSH 10 ML FLUSH IV FLUSH SCH ×2 (08:30→20:54)
--- NOTE | 2017-05-20 11:01 | HHI.PR ---
Subjective Remarks pain seems controlled with fentanyl and breakthrough po meds. Objective Vitals heart reg lung cta abd right biliary drain ext no edema Vital Signs Date Time Temp Pulse Resp B/P (MAP) Pulse Ox O2 Delivery O2 Flow Rate FiO2 05/20/17 08:00 97.9 78 16 99/57 (71) 95 05/20/17 00:00 98.6 99 20 119/59 (79) 93 05/19/17 20:00 97.2 94 20 104/59 (74) 94 05/19/17 16:00 98.2 88 20 117/59 (78) 95 05/19/17 15:33 18 05/19/17 14:59 18 05/19/17 12:00 96.9 90 20 96/59 (71) 95 Result Diagram: 05/19/17 0925 05/17/17 0635 Imaging Last Impressions Thoracentesis Ultrasound 05/13/17 0000 Signed Impressions: Service Date/Time: Saturday, May 13, 2017 08:38 - CONCLUSION: Uncomplicated ultrasound guided right thoracentesis. Brenden Sanchez MD Chest X-Ray 05/13/17 0000 Signed Impressions: Service Date/Time: Saturday, May 13, 2017 09:49 - CONCLUSION: 1. No evidence of pneumothorax following thoracentesis. Dionte Francois MD Abdomen/Pelvis CT 05/11/17 1627 Signed Impressions: Service Date/Time: Thursday, May 11, 2017 18:01 - CONCLUSION: 1. Right pleural effusion with consolidation right lung base, right middle lobe and lingula may represent pneumonia. 2. There are gas bubbles with fluid collections in the right perihepatic space in addition to subcapsular fluid collection all of which could be related to placement of transhepatic percutaneous biliary external/internal drain. 3. There are cystic masses in the body and head of the pancreas and a solid mass may be present in the head of the pancreas with slight dilatation of the pancreatic duct. Mary Jane Garcia MD A/P Problem List: (1) Pancreatic mass ICD Codes: K86.9 - Disease of pancreas, unspecified Status: Acute Plan: - Pt with pancreatic masses and cbd obstruction. - adenocarcinoma diagnosed with cbd biopsies per IR - Pt has had difficult to control pain with her int/ext biliary drain She had a biliary stent placed in April at same time as bx's - Pt returned to [place] with severe pain and wbc 34k. CT imaging showed concern for subcapsular liver hematoma...felt related to previous bx's - elevated wbc persisted.... - On 05/18/17..Dr Aguirre removed the plastic stent as it was not working. He found that the subcapsular collection was more like abscess with purelent fluid...He removed about 40 cc and exchanged the biliary drain. The fluid preliminarily appears to be growing a yeast organism- -Her wbc has trended down from 34k to 11 k and no fevers at this time. -Pt has received zosyn from 05/12/17 -Her pain medications were adjusted on 05/18...currently getting fentanyl 75mcg, oxycodone 15mg prn. prn breakthrough iv morphine hasn't used much. -Will probably get an ID opinion tomorrow. discussed with daughter and pt. -05/13. right thoracentesis. 550cc..probably related to intraabdomen process I have spoken to [facility] and they approve a hospital to hospital transfer to [facility] which is pt/daughter preference. I have spoken to [place] and [facility] and they have initiated a transfer process with [place]. I have spoken to [place] [facility] and they tell me a physician is reviewing the case and will be in touch. I gave them my cell number on 05/19....await decision. addendum: called by [facility]. Dr Malika Palencia. They are at full capacity at [place] and are unable to consider any transfers at this time. They are trying to expedite clinic appt with GI oncology either Dr Gordon or Francisco...and also Surgical Oncology probably Dr Olguin. I'm told Pt and family will get a call probably in next 48hrs and the hope is a clinic appt in the next week or so. Also they will need patient to bring imaging disc and pathology slides to appt. (2) Pleural effusion on right ICD Codes: J90 - Pleural effusion, not elsewhere classified Status: Acute Plan: - see above Mich Mendoza MD May 20, 2017 11:01
[2017-05-20 12:00] VITALS: BP 99/58; PULSE 79; RESP 16; TEMP 97.7; O2SAT 93
[2017-05-20 16:00] VITALS: BP 102/58; PULSE 82; RESP 18; TEMP 97.4; O2SAT 93
[2017-05-20 20:00] VITALS: BP 100/64; PULSE 92; RESP 17; TEMP 96.9; O2SAT 95
[2017-05-20] MEDS: guaiFENesin/CODEINE SYRUP 200 MG/20 MG/10 ML CUP PO PRN (21:14)
[2017-05-21] VITALS: BP 98/68; PULSE 85; RESP 18; TEMP 96.9; O2SAT 94
[2017-05-21] MEDS: PIPERACIL-TAZO 3.375 GM PREMIX 50 ML IV SCH ×4 (01:24→16:51)
[2017-05-21] MEDS: SODIUM CHLORIDE 0.9% FLUSH 10 ML FLUSH IV FLUSH PRN (01:25)
[2017-05-21 04:00] VITALS: BP 111/51; PULSE 82; RESP 18; TEMP 97.2; O2SAT 94
[2017-05-21 07:44] VITALS: BP 100/78; PULSE 76; RESP 18; TEMP 97.9; O2SAT 96
[2017-05-21] MEDS: SODIUM CHLORIDE 0.9% FLUSH 10 ML FLUSH IV FLUSH SCH ×2 (08:18→21:00)
[2017-05-21] MEDS: ONDANSETRON HCL 4 MG/2 ML VIAL IVP PRN (08:18)
[2017-05-21] MEDS: DOCUSATE SODIUM 50 MG/SENNA 8.6 MG TAB PO SCH ×2 (08:19→21:12)
--- NOTE | 2017-05-21 11:18 | HHI.PR ---
Subjective Remarks doing ok. pain more controlled Objective Vitals heart reg lung cta abd drain capped/bs ext no edema Vital Signs Date Time Temp Pulse Resp B/P (MAP) Pulse Ox O2 Delivery O2 Flow Rate FiO2 05/21/17 07:44 97.9 76 18 100/78 (85) 96 05/21/17 04:00 97.2 82 18 111/51 (71) 94 05/21/17 00:00 96.9 85 18 98/68 (78) 94 05/20/17 20:00 96.9 92 17 100/64 (76) 95 05/20/17 16:00 97.4 82 18 102/58 (73) 93 05/20/17 12:00 97.7 79 16 99/58 (72) 93 05/21/17 05/21/17 05/22/17 15:00 23:00 07:00 Output Total 90 ml Balance -90 ml Drainage Total 90 ml Result Diagram: 05/19/17 0925 05/17/17 0635 Imaging Last Impressions Thoracentesis Ultrasound 05/13/17 0000 Signed Impressions: Service Date/Time: Saturday, May 13, 2017 08:38 - CONCLUSION: Uncomplicated ultrasound guided right thoracentesis. Brenden Sanchez MD Chest X-Ray 05/13/17 0000 Signed Impressions: Service Date/Time: Saturday, May 13, 2017 09:49 - CONCLUSION: 1. No evidence of pneumothorax following thoracentesis. Dionte Francois MD Abdomen/Pelvis CT 05/11/17 1627 Signed Impressions: Service Date/Time: Thursday, May 11, 2017 18:01 - CONCLUSION: 1. Right pleural effusion with consolidation right lung base, right middle lobe and lingula may represent pneumonia. 2. There are gas bubbles with fluid collections in the right perihepatic space in addition to subcapsular fluid collection all of which could be related to placement of transhepatic percutaneous biliary external/internal drain. 3. There are cystic masses in the body and head of the pancreas and a solid mass may be present in the head of the pancreas with slight dilatation of the pancreatic duct. Mary Jane Garcia MD A/P Problem List: (1) Pancreatic mass ICD Codes: K86.9 - Disease of pancreas, unspecified Status: Acute Plan: - Pt with pancreatic masses and cbd obstruction. - adenocarcinoma diagnosed with cbd biopsies per IR 12/17 - Pt has had difficult to control pain with her int/ext biliary drain She had a biliary stent placed in April at same time as bx's - Pt returned to [place] with severe pain and wbc 34k. CT imaging showed concern for subcapsular liver hematoma...felt related to previous bx's - elevated wbc persisted.... - On 05/18/17..Dr Aguirre removed the plastic stent as it was not working. He found that the subcapsular collection was more like abscess with purelent fluid...He removed about 40 cc and exchanged the biliary drain. The fluid preliminarily appears to be growing a yeast organism- I discussed the method of collection with Dr Aguirre. He says that he pulled back the drain that was in contact with her gut and then sucked out the abscess area....so I wonder if the yeast is a contaminant of her culture and not respresenting true infection -Her wbc has trended down from 34k to 11 k and no fevers at this time. -Pt has received zosyn from 05/12/17 -Her pain medications were adjusted on 05/18...currently getting fentanyl 75mcg, oxycodone 15mg prn. prn breakthrough iv morphine hasn't used much. - -05/13. right thoracentesis. 550cc..probably related to intraabdomen process I have spoken to [facility] and they approve a hospital to hospital transfer to [facility] which is pt/daughter preference. I have spoken to [place] and [facility] and they have initiated a transfer process with [place]. I have spoken to [place] [facility] and they tell me a physician is reviewing the case and will be in touch. I gave them my cell number on 05/19....await decision. called by [facility] on 05/20... Dr Malika Palencia. They are at full capacity at [place] and are unable to consider any transfers at this time. They are trying to expedite clinic appt with GI oncology either Dr Gordon or Francisco...and also Surgical Oncology probably Dr Olguin. I'm told Pt and family will get a call probably in next 48hrs and the hope is a clinic appt in the next week or so. Also they will need patient to bring imaging disc and pathology slides to appt. Today the drain is capped off by IR I will ask ID to give opinion if yeast in latest culture taken by IR could be just contamination. no fevers and clinically looks better arrange hhc/pt (2) Pleural effusion on right ICD Codes: J90 - Pleural effusion, not elsewhere classified Status: Acute Plan: - see above Mich Mendoza MD May 21, 2017 11:18
[2017-05-21 11:53] VITALS: BP 118/62; PULSE 74; RESP 16; TEMP 97.9; O2SAT 96
[2017-05-21] MEDS: REMOVE OLD FENTANYL PATCH T-DERMAL SCH (12:05)
[2017-05-21] MEDS: fentaNYL 75 MCG/HR PATCH T-DERMAL SCH (12:05)
--- NOTE | 2017-05-21 14:16 | PD.ID.CON ---
History of Present Illness Service ID Consult Requested By Dr Mendoza Reason for Consult fungal liver abscess Primary Care Physician No Primary Care Physician Diagnoses: Past Family Social History Allergies: Coded Allergies: hydromorphone (Verified Allergy, Severe, Itching, 05/11/17) Active Ordered Medications Medications where reviewed in EMR Antibiotics Include: zosyn Physical Exam Vital Signs Vital Signs Date Time Temp Pulse Resp B/P (MAP) Pulse Ox O2 Delivery O2 Flow Rate FiO2 05/21/17 11:53 97.9 74 16 118/62 (80) 96 05/21/17 07:44 97.9 76 18 100/78 (85) 96 05/21/17 04:00 97.2 82 18 111/51 (71) 94 05/21/17 00:00 96.9 85 18 98/68 (78) 94 05/20/17 20:00 96.9 92 17 100/64 (76) 95 05/20/17 16:00 97.4 82 18 102/58 (73) 93 Laboratory Date/Time Source Procedure Growth Status 05/11/17 19:16 Blood Peripheral Aerobic Blood Culture - Final NO GROWTH IN 5 DAYS Complete 05/11/17 19:16 Blood Peripheral Anaerobic Blood Culture - Final NO GROWTH IN 5 DAYS Complete 05/13/17 09:45 Fluid Pleural Fluid Fungal Smear - Final NO FUNGAL ELEMENTS SEEN. Resulted 05/13/17 09:45 Fluid Pleural Fluid Fungal Culture - Preliminary NO GROWTH IN 1 WEEK Resulted 05/18/17 14:05 Abscess Abdomen Gram Stain - Final Resulted 05/18/17 14:05 Wound Culture - Preliminary Yeast-Id To Follow Resulted Result Diagram: 05/19/17 0925 05/17/17 0635 Imaging Last Impressions Abdomen/Pelvis CT 05/18/17 0800 Signed Impressions: Service Date/Time: Thursday, May 18, 2017 08:28 - CONCLUSION: Subcapsular hematoma on the right. This is becoming more organized and contains small amount of air as expected. Drain in good position Improvement right lung base. No other significant change. Giovanni Rodriguez MD FACR Biliary Drain Exchange 05/18/17 0000 Signed Impressions: Service Date/Time: Thursday, May 18, 2017 14:54 - CONCLUSION: 1. Successful snare removal of the apparently obstructed Silastic biliary stent as detailed above. 2. Aspiration of approximately 40 cc of cloudy pinkish fluid from the perihepatic space. A fluid sample was sent to laboratory for analysis. 3. Placement of a 10 Lithuanian internal/external drain. Alan Aguirre MD Thoracentesis Ultrasound 05/13/17 0000 Signed Impressions: Service Date/Time: Saturday, May 13, 2017 08:38 - CONCLUSION: Uncomplicated ultrasound guided right thoracentesis. Brenden Sanchez MD Chest X-Ray 05/13/17 0000 Signed Impressions: Service Date/Time: Saturday, May 13, 2017 09:49 - CONCLUSION: 1. No evidence of pneumothorax following thoracentesis. MD Joyb Nunezman,Carmela Morales MD May 21, 2017 14:16
[2017-05-21 16:00] VITALS: BP 100/60; PULSE 78; RESP 16; TEMP 96.5; O2SAT 95
[2017-05-21 20:00] VITALS: BP 105/62; PULSE 80; RESP 18; TEMP 97.3; O2SAT 97
[2017-05-21] MEDS: guaiFENesin/CODEINE SYRUP 200 MG/20 MG/10 ML CUP PO PRN (21:19)
[2017-05-22] VITALS: BP 100/58; PULSE 84; RESP 18; TEMP 96.6; O2SAT 94
[2017-05-22] MEDS: PIPERACILLIN/TAZ 3.375 GM VIAL 3.375 GM in SODIUM CHLORIDE 0.9% INJ 100 ML IV SCH ×3 (00:16→11:44)
[2017-05-22 08:00] VITALS: BP 113/59; PULSE 83; RESP 16; TEMP 97; O2SAT 93
[2017-05-22] MEDS: DOCUSATE SODIUM 50 MG/SENNA 8.6 MG TAB PO SCH (08:47)
[2017-05-22] MEDS: SODIUM CHLORIDE 0.9% FLUSH 10 ML FLUSH IV FLUSH SCH (08:47)
[2017-05-22 12:00] VITALS: BP 98/55; PULSE 81; RESP 16; TEMP 97.4; O2SAT 95
[2017-05-22] MEDS ORDERED: FENT75T T-DERMAL (12:41)
[2017-05-22] MEDS ORDERED: ZOFR4TAB3 SL (12:41)
[2017-05-22] MEDS ORDERED: REST15CA PO (12:41)
[2017-05-22] MEDS ORDERED: guaiFEN-COD 200-20 MG/10ML LIQ PO (12:41)
[2017-05-22] MEDS ORDERED: OXYC-392 PO (12:41)
--- NOTE | 2017-05-22 12:42 | HHI.DCPOC ---
Discharge Care Plan Diagnosis: (1) Pancreatic adenocarcinoma (2) Perihepatic abscess (3) Common biliary duct obstruction (4) Pleural effusion Goals to Promote Your Health * To prevent worsening of your condition and complications * To maintain your health at the optimal level Directions to Meet Your Goals Take your medications as prescribed Follow your dietary instruction Follow activity as directed Keep your appointments as scheduled Take your immunizations and boosters as scheduled If your symptoms worsen call your PCP, if no PCP go to Urgent Care Center or Emergency Room Smoking is Dangerous to Your Health. Avoid second hand smoke Call the 24-hour hour crisis hotline for domestic abuse at Mich Mendoza MD May 22, 2017 12:42
--- NOTE | 2017-05-22 12:44 | HHI.FF ---
Face to Face Verification Diagnosis: (1) Pancreatic adenocarcinoma (2) Perihepatic abscess (3) Pleural effusion (4) Common biliary duct obstruction Home Health Nursing Order: Medical education Signs/symptoms of disease process Medication education-adverse effect Nursing assessment with vital signs Instructions: pt has biliary drain capped I have seen patient Aster Benítez on 05/22/17. My clinical findings support the need for the requested home health care services because: Infection w/ risk of complications I certify that my clinical findings support that this patient is homebound because: Need for psychosocial assistance Mich Mendoza MD May 22, 2017 12:44
--- NOTE | 2017-05-22 12:50 | HHI.DS ---
Discharge Summary Admission Date May 11, 2017 at 18:53 Discharge Date: May 22, 2017 Admitting Diagnosis pneumonia, sepsis, leukocytosis, biliary stent (1) Pancreatic adenocarcinoma Diagnosis: Principal ICD Codes: C25.9 - Malignant neoplasm of pancreas, unspecified (2) Perihepatic abscess Diagnosis: Principal ICD Codes: K65.0 - Generalized (acute) peritonitis (3) Common biliary duct obstruction Diagnosis: Principal ICD Codes: K83.1 - Obstruction of bile duct Status: Acute (4) Pleural effusion on right Diagnosis: Principal ICD Codes: J90 - Pleural effusion, not elsewhere classified Status: Acute Brief History The patient is a 67-year-old female who presents to the emergency department for continuing abdominal pain and leakage around the biliary tube. The patient states she was recently hospitalized for biliary obstruction. They tried to place a stent in the biliary tract, however, are unsuccessful and subsequently had interventional radiology place a biliary tube, by Dr. Aguirre. The patient states she had 2 biopsies of pancreatic masses, came back inflammatory, unsure if it is cancer. Patient had negative PET scan 1 1/2 years ago. The patient was referred to the [facility], but has not been seen at the [facility] as approval just obtained.. The patient was seen by the toys and games hand finisher, Dr. Fitzpatrick, during her hospitalization. She returned home, however, several days ago developed some leakage around the tube. The patient also had abdominal pain and fever. The patient was seen at an emergency department in [place], was prescribed pain medications, but no workup was instituted for fever. The patient states she has a chronic cough and she states has hx bronchiectasis , and has had increased wheezing. She denies any dysuria. She does complain of discomfort in the right upper quadrant where the tube has been placed. She does note there is drainage around the tube which appears to be a clear pink liquid. The patient was seen by the home health care nurse who referred her to the emergency department for further evaluation. The patient has not had a fever today, but did have a fever 2 days ago with a white count of 17 per her report. The patient's symptoms are moderate, there are no known alleviating or exacerbating factors. On evaluation CT abdomen shows rt sided infiltrates lung and some fluid biliary but radiology feels more related to biliary drain . Patient does have WBC count [id number]. CBC/BMP: 05/19/17 0925 Hospital Course (1) Pancreatic adenocarcinoma - Pt with pancreatic masses and cbd obstruction. - adenocarcinoma diagnosed with cbd biopsies per IR 04/26 - Pt has had difficult to control pain with her int/ext biliary drain She had a biliary stent placed in April at same time as bx's - Pt returned to [place] with severe pain and wbc 34k. CT imaging showed concern for subcapsular liver hematoma...felt related to previous bx's - elevated wbc persisted.... - On 05/18/17..Dr Aguirre removed the plastic stent as it was not working. He found that the subcapsular collection was more like abscess with purelent fluid...He removed about 40 cc and exchanged the biliary drain. The fluid preliminarily appears to be growing a yeast organism- I discussed the method of collection with Dr Aguirre. He says that he pulled back the drain that was in contact with her gut and then sucked out the abscess area....so I wonder if the yeast is a contaminant of her culture and not respresenting true infection -Her wbc has trended down from 34k to 11 k and no fevers at this time. -Pt has received zosyn from 05/12/17 and completed 10 day course. bacterial cx's negative. -Her pain medications were adjusted on 05/18...currently getting fentanyl 75mcg, oxycodone 15mg prn. prn breakthrough iv morphine hasn't used much. - -05/13. right thoracentesis. 550cc..probably related to intraabdomen process I have spoken to [facility] and they approve a hospital to hospital transfer to [facility] which is pt/daughter preference. I have spoken to [place] and [facility] and they have initiated a transfer process with [place]. I have spoken to [place] [facility] and they tell me a physician is reviewing the case and will be in touch. I gave them my cell number on 05/19....await decision. called by [facility] on 05/20... Dr Malika Palencia. They are at full capacity at [place] and are unable to consider any transfers at this time. They are trying to expedite clinic appt with GI oncology either Dr Gordon or Francisco...and also Surgical Oncology probably Dr Olguin. I'm told Pt and family will get a call probably in next 48hrs and the hope is a clinic appt in the next week or so. Also they will need patient to bring imaging disc and pathology slides to appt. -On 05/20 the drain is capped off by IR I have asked ID to give opinion if yeast in latest culture taken by IR could be just contamination. no fevers and clinically looks better She is here evaluating pt before dc arrange hhc/pt and d/c today for [facility] appt on 05/28. Pt and family eager for d/c (2) Pleural effusion on right ICD Codes: J90 - Pleural effusion, not elsewhere classified Status: Acute Plan: - see above Pt Condition on Discharge: Stable Discharge Disposition: Disch w/ Home Health Serv Discharge Instructions DIET: Follow Instructions for: As Tolerated, No Restrictions Activities you can perform: Regular-No Restrictions Follow up Referrals: Appointment for Follow Up - 05/28/17 with [facility] New Medications: Ondansetron Odt (Zofran Odt) 4 Mg Tab 4 MG SL Q6HR PRN for Nausea/Vomiting, #30 TAB 0 Refills Fentanyl (Duragesic) 75 Mcg/Hour Patch.td72 1 PATCH T-DERMAL Q3D for Pain Management, #10 PATCH Oxycodone (Oxycodone) 5 Mg Tab 15 MG PO Q4H PRN for breakthrough pain, #60 TAB Temazepam (Restoril) 15 Mg Cap 15 MG PO HS PRN for INSOMNIA, #30 CAP [guaiFEN-COD 200-20 MG/10ML LIQ] () 10 ML SYRP 10 ML PO Q6H PRN for COUGH, #30 Discontinued Medications: Acetaminophen (Tylenol) 325 Mg Tab 500 MG PO Q8HR, TAB 0 Refills Dextromethorphan-Guaifenesin Liq (Delsym Cough Chest Congestion) 5-100 Mg/5 Ml Liq 20 ML PO Q6H PRN for CHEST CONGESTION AND/OR COUGH, #180 ML 0 Refills Fentanyl (Duragesic) 25 Mcg/Hour Patch.td72 1 PATCH T-DERMAL Q3D for Pain Management, #10 PATCH 0 Refills Hydrocodone-Acetaminophen ([place]) 7.5-325 mg Tab 1 TAB PO Q8HR PRN for PAIN, TAB 0 Refills Morphine ER (Morphine ER) 15 Mg Tab 15 MG PO BID for Pain Management, TAB 0 Refills Mich Mendoza MD May 22, 2017 12:50
--- NOTE | 2017-05-22 13:59 | PD.ID.CON ---
History of Present Illness Service ID Consult Requested By Dr Mendoza Reason for Consult infected hematoma, morgan Primary Care Physician Unknown Diagnoses: History of Present Illness 67 yo female developped abdominal apin and jaundice 3 mos ag She was fgound to have pancreatic mass with - path showed mod diff adenocarcinoma She had attempted stent on Apr 30 followed by external drain placement by Dr Aguirre After that procedure her jaundice resolved,, but she cont to have abdominal pain as well as fever and chills. That continued and was getting worse and she was admitted to the hospital on May 11 She was started on zosyn and on May 18 she underwent IR procedure that included percutaneous cholangiogram; loop snaring of a Silastic biliary stent, biliary stent placement and percutaneous drainage of perihepatic fluid collection. It grew out Morgan lambica Pt is still on zosyn since May 11 and no antifunal tx was started yet Fluid collection had moderate amount of WBC Pts WBC improved from 14 K to 11 K and no fevers were documented for entire hospital stay Review of Systems Except as stated in HPI: all other systems reviewed are Neg Past Family Social History Allergies: Coded Allergies: hydromorphone (Verified Allergy, Severe, Itching, 05/11/17) Past Medical History pancreatic mass,lung nodule djd,GERD copd Past Surgical History gallbladder,biliary drain Active Ordered Medications Medications where reviewed in EMR Antibiotics Include: zosyn Family History Reviewed Non-Contributory. Social History No Tobacco. No ETOH. No Illicit Drugs. Physical Exam Vital Signs Vital Signs Date Time Temp Pulse Resp B/P (MAP) Pulse Ox O2 Delivery O2 Flow Rate FiO2 05/22/17 12:00 97.4 81 16 98/55 (69) 95 05/22/17 08:00 97.0 83 16 113/59 (77) 93 05/22/17 03:01 20 05/22/17 00:00 96.6 84 18 100/58 (72) 94 05/21/17 20:00 97.3 80 18 105/62 (76) 97 05/21/17 16:00 96.5 78 16 100/60 (73) 95 Physical Exam CONSTITUTIONAL/GENERAL: This is an adequately nourished patient, in no apparent distress. TUBES/LINES/DRAINS: SKIN: No jaundice, rashes, or lesions. Skin temperature appropriate. Not diaphoretic. HEAD: Atraumatic. Normocephalic. EYES: Pupils equal and round and reactive. Extraocular motions intact. No scleral icterus. No injection or drainage. Fundi not examined. ENT: Hearing grossly normal. Nose without bleeding or purulent drainage. Throat without visible erythema, exudates, masses, or lesions. NECK: Trachea midline. Supple, nontender. No palpable thyroid enlargement or nodularity. CARDIOVASCULAR: Regular rate and rhythm without murmurs, gallops, or rubs. No JVD. Peripheral pulses symmetric. RESPIRATORY/CHEST: Symmetric, unlabored respirations. Clear to auscultation. Breath sounds equal bilaterally. No wheezes, rales, or rhonchi. GASTROINTESTINAL: Abdomen soft, non-tender, somewhat distended. Drain in place RUQ No hepato-splenomegaly, or palpable masses. No guarding. Bowel sounds present. MUSCULOSKELETAL: Extremities without clubbing, cyanosis, or edema. No joint tenderness or effusion noted. No calf tenderness. No mottling or clubbing. LYMPHATICS: No palpable cervical or supraclavicular adenopathy. NEUROLOGICAL: Awake and alert. Motor and sensory grossly within normal limits. Follows commands. Cognitively sharp. Moves all extremities. PSYCHIATRIC: No obvious anxiety/depression. no apparent hallucinations or other psychotic thought process. Laboratory Date/Time Source Procedure Growth Status 05/11/17 19:16 Blood Peripheral Aerobic Blood Culture - Final NO GROWTH IN 5 DAYS Complete 05/11/17 19:16 Blood Peripheral Anaerobic Blood Culture - Final NO GROWTH IN 5 DAYS Complete 05/13/17 09:45 Fluid Pleural Fluid Fungal Smear - Final NO FUNGAL ELEMENTS SEEN. Resulted 05/13/17 09:45 Fluid Pleural Fluid Fungal Culture - Preliminary NO GROWTH IN 1 WEEK Resulted 05/18/17 14:05 Abscess Abdomen Gram Stain - Final Resulted 05/18/17 14:05 Wound Culture - Preliminary Morgan Lambica Resulted Result Diagram: 05/19/17 0925 Imaging Last Impressions Abdomen/Pelvis CT 05/18/17 0800 Signed Impressions: Service Date/Time: Thursday, May 18, 2017 08:28 - CONCLUSION: Subcapsular hematoma on the right. This is becoming more organized and contains small amount of air as expected. Drain in good position Improvement right lung base. No other significant change. Giovanni Rodriguez MD FACR Biliary Drain Exchange 05/18/17 0000 Signed Impressions: Service Date/Time: Thursday, May 18, 2017 14:54 - CONCLUSION: 1. Successful snare removal of the apparently obstructed Silastic biliary stent as detailed above. 2. Aspiration of approximately 40 cc of cloudy pinkish fluid from the perihepatic space. A fluid sample was sent to laboratory for analysis. 3. Placement of a 10 Iranian internal/external drain. Alan Aguirre MD Thoracentesis Ultrasound 05/13/17 0000 Signed Impressions: Service Date/Time: Saturday, May 13, 2017 08:38 - CONCLUSION: Uncomplicated ultrasound guided right thoracentesis. Brenden Sanchez MD Chest X-Ray 05/13/17 0000 Signed Impressions: Service Date/Time: Saturday, May 13, 2017 09:49 - CONCLUSION: 1. No evidence of pneumothorax following thoracentesis. Dionte Francois MD Assessment and Plan Assessment and Plan Pancreatic adenocarcinoma sp multiple percutanoeus interventions Infected hematoma, C. lambica - less likely contamination during the procedure, however incrased WBC in collection is making infection more likely Clinically well - add fluconazole 200 daily x 14 days - stop zosyn - fu smnsitivities on C. albicans Discussed Condition With Dr Mendoza family @ b/s Discharge Planning OK to dc home today Carmela Zuñiga MD May 22, 2017 13:59
[2017-05-22] MEDS ORDERED: FLUC200T2 PO (14:01)
== END 2017-05-22 15:23 | disposition home health service (06) | DRG 907 ==
LOC: NEPC 15:14 → NEDA 18:53 → N07B 22:47
PROVIDERS: ADMIT Hospitalist; ATTEND Hospitalist
PROC: 0W993ZZ Drainage of Right Pleural Cavity, Percutaneous Approach (ICD-10-PCS; 2017-05-13)
PROC: 0FPB4DZ Removal of Intraluminal Device from Hepatobiliary Duct, Percutaneous Endoscopic Approach (ICD-10-PCS; principal; 2017-05-19)
PROC: BF101ZZ Fluoroscopy of Bile Ducts using Low Osmolar Contrast (ICD-10-PCS; 2017-05-19)
PROC: 0F9030Z Drainage of Liver with Drainage Device, Percutaneous Approach (ICD-10-PCS; 2017-05-19)
DX: T85.79XA Infection and inflammatory reaction due to other internal prosthetic devices, implants and grafts, initial encounter (principal); A41.9 Sepsis, unspecified organism; K65.0 Generalized (acute) peritonitis; K75.0 Abscess of liver; J18.9 Pneumonia, unspecified organism; J90 Pleural effusion, not elsewhere classified; C25.9 Malignant neoplasm of pancreas, unspecified; C22.1 Intrahepatic bile duct carcinoma; K83.1 Obstruction of bile duct; J47.0 Bronchiectasis with acute lower respiratory infection; K91.870 Postprocedural hematoma of a digestive system organ or structure following a digestive system procedure; T85.590A Other mechanical complication of bile duct prosthesis, initial encounter; K21.9 Gastro-esophageal reflux disease without esophagitis; M19.042 Primary osteoarthritis, left hand; M19.041 Primary osteoarthritis, right hand; M47.9 Spondylosis, unspecified; F41.9 Anxiety disorder, unspecified; Y83.8 Other surgical procedures as the cause of abnormal reaction of the patient, or of later complication, without mention of misadventure at the time of the procedure; Z88.5 Allergy status to narcotic agent
CPT/HCPCS: 32555; 47536; 47537; 71045; 74176; 74177; 80048; 80053; 81001; 82150; 82945; 83605; 83615; 83690; 83735; 83986; 84157; 85007; 85025; 85027; 85610; 87015; 87040; 87070; 87102; 87106; 87116; 87205; 87206; 88112; 88305; 89051; 93005; 94640; 94664; 96361; 96365; 96375; 99152; 99153; C1729; C1769; C1773; C1887; C1894; J2250; J2270; J2405; J2543; J3010; J7030; Q9967